=== PATIENT | female | born 1980 | race Caucasian/White ===

== ENCOUNTER 2020-05-29 19:19 | Inpatient (IN) ==
[2020-05-29] MEDS ORDERED: LORazepam 2 MG/4 ML VIAL IV STA (19:39)
[2020-05-29] MEDS ORDERED: MULTI-VITAMIN INFUSION 10 ML, THIAMINE HCL 100 MG, FOLIC ACID 1 MG in SODIUM CHLORIDE 0... IV ONE (19:40)
[2020-05-29] MEDS ORDERED: SODIUM CHLORIDE 0.9% 1000ML 1,000 ML IV SCH (19:45)
[2020-05-29 20:28] LABS: INR 1.1 (0.9-1.1); Prothrombin Time 10.9 Seconds (9.0-12.0)
[2020-05-29 20:40] LABS: Albumin Level 3.7 gm/dl (3.4-5.0); BUN Creatinine Ratio 13.9 (10-20); Calcium 8.7 mg/dl (8.5-10.1); Creatinine Clr Calc Pharmacy 86.1 ml/min; Est GFR (African American) 119.1; Est GFR (Non-African American) 102.8; Magnesium 1.4 mg/dl (1.8-2.4); Potassium 2.9 mmol/L (3.5-5.1)
[2020-05-29 20:45] LABS: Influenza A virus by PCR Negative (Neg); Influenza B virus by PCR Negative (Neg); RSV by PCR Negative (Neg); SARS CoV2 RNA(COVID-19) InHosp NEGATIVE (Negative)
[2020-05-29] MEDS ORDERED: POTASSIUM CHLORIDE / WTR 10 MEQ/100 ML PLCT IV SCH (20:45)
[2020-05-29] MEDS ORDERED: POTASSIUM CHLORIDE 10 MEQ TABCR PO STA (20:45)
[2020-05-29 20:51] LABS: Albumin Globulin Ratio 1.1 (0.9-2); Bilirubin,Total 0.7 mg/dl (0.2-1); Globulin 3.3 gm/dl (2.5-4.0); Thyroid Stimulating Hormone 2.42 uIu/ml (0.300-4.500)
[2020-05-29] MEDS: MAGNESIUM SULFATE / D5W 1 GM/100 ML BAG IV SCH ×2 (20:53→21:49)
[2020-05-29 20:56] LABS: Hematocrit (blood only) 28.7 % (37-47); Hemoglobin 9.8 g/dL (12.0-16.0); Mean Corpuscular Hemoglobin 29.6 pg (25-34); Mean Corpuscular Hgb Conc 34.1 g/dL (32-36); Mean Corpuscular Volume 86.7 fL (80-100); RDW Coefficient of Variation 21.7 % (11.5-14.5); RDW Standard Deviation 68.6 fL (36.4-46.3); Red Blood Count 3.31 M/uL (4.2-5.4); White Blood Count 3.91 K/uL (4.8-10.8)
[2020-05-29 21:03] LABS: Anisocytosis Present; Basophils # (auto) 0.01 K/uL (0-0.2); Basophils % (auto) 0.3 %; Eosinophils # (auto) 0.01 K/uL (0-0.5); Eosinophils % (auto) 0.3 %; Immature Granulocytes # (auto) 0.02 K/uL (0.00-0.02); Immature Granulocytes % (auto) 0.5 %; Lymphocytes # (auto) 0.64 K/uL (1.2-3.4); Lymphocytes % (auto) 16.4 %; Mean Platelet Volume 10.3 fL (7.4-10.4); Monocytes # (auto) 0.21 K/uL (0.11-0.59); Monocytes % (auto) 5.4 %; Neutrophils # (auto) 3.02 K/uL (1.4-6.5); Neutrophils % (auto) 77.1 %; Platelet Count 64 K/uL (130-400); Platelet Estimate Decreased (Normal)
[2020-05-29] MEDS ORDERED: ACETAMINOPHEN 1,000 MG/100 ML VIAL IV STA (21:21)
[2020-05-29 21:29] LABS: Phosphorus 1.4 mg/dl (2.5-4.9)
[2020-05-29] MEDS ORDERED: POTASSIUM PHOSPHATE 30 MMOL in SODIUM CHLORIDE 0.9% 500 ML IV ONE (22:00)
[2020-05-29] MEDS ORDERED: GABAPENTIN 600 MG TAB PO ONE (22:03)
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
[2020-05-29] MEDS ORDERED: ONDANSETRON INJ 2 MG/ML 2 ML VIAL IV PRN (23:42)
[2020-05-29] MEDS ORDERED: LORazepam 1 MG/2 ML VIAL IV PRN (23:42)
[2020-05-29] MEDS ORDERED: GABAPENTIN 1200MG ALCOHOL WITHDRAWAL LOAD PO STA (23:42)
[2020-05-29] MEDS ORDERED: LORazepam 3 MG/6 ML VIAL IV PRN (23:42)
[2020-05-29] MEDS ORDERED: ACETAMINOPHEN 325 MG TAB PO PRN (23:42)
[2020-05-29] MEDS ORDERED: ATIVAN IV ALCOHOL WITHDRAWL IV PRN (23:42)
[2020-05-29] MEDS ORDERED: LORazepam 2 MG/4 ML VIAL IV PRN (23:42)
[2020-05-29] MEDS ORDERED: POTASSIUM PHOS 3 MMOL/1 ML INFUSION IV ONE (23:42)
[2020-05-30] MEDS ORDERED: MELATONIN 3 MG TAB PO PRN (00:09)
[2020-05-30] MEDS: POTASSIUM CHLORIDE CRTAB 20 MEQ TABCR PO SCH ×3 (00:37→19:42)
[2020-05-30] MEDS: busPIRone 7.5 MG TAB PO SCH ×4 (00:37→19:42)
[2020-05-30] MEDS: FOLIC ACID 1 MG TAB PO SCH ×2 (00:37→08:34)
[2020-05-30] MEDS: NSS + 20MEQ KCL 20 MEQ/1,000 ML BAG IV SCH ×4 (00:37→19:41)
[2020-05-30] MEDS: NEPHROCAPS PO SCH ×3 (00:38→19:42)
[2020-05-30] MEDS: THIAMINE HCL 100 MG TAB PO SCH ×2 (00:38→08:34)
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
[2020-05-30] MEDS: GABAPENTIN 600 MG TAB PO SCH ×3 (03:48→19:42)
[2020-05-30 05:30] LABS: Appearance Urine Clear (Clear); Bacteria Urine Automated Negative (Negative); Bilirubin Urine Negative (Negative); Blood Urine 3+ (Negative); Color Urine Yellow; Epithelial Cell Urine Auto >30 /lpf (0-5); Glucose Urine UA Negative (Negative); Ketones Urine Negative (Negative); Leukocyte Esterase Urine Negative (Negative); Nitrite Urine Negative (Negative); Protein Urine Trace (Negative); Specific Gravity Urine 1.016 (1.000-1.030); Urobilinogen Urine Negative (Negative); pH Urine 5.5 (4.5-7.5)
[2020-05-30 05:49] LABS: Amphetamines+Metham, Urine Neg (Neg); Barbiturates, Urine Neg (Neg); Benzodiazepine, Urine Neg (Neg); Cocaine, Urine Neg (Neg); MDMA (Ecstacy), Urine Neg (Neg); Methadone, Urine Neg (Neg); Opiate, Urine Neg (Neg); Phencyclidine, Urine Neg (Neg)
[2020-05-30 05:50] LABS: Hematocrit (blood only) 24.8 % (37-47); Hemoglobin 8.2 g/dL (12.0-16.0); Mean Corpuscular Hemoglobin 29.4 pg (25-34); Mean Corpuscular Hgb Conc 33.1 g/dL (32-36); Mean Corpuscular Volume 88.9 fL (80-100); RDW Standard Deviation 71.1 fL (36.4-46.3); Red Blood Count 2.79 M/uL (4.2-5.4); White Blood Count 3.27 K/uL (4.8-10.8)
[2020-05-30 05:52] LABS: Mucus Urine Present (None Prsent)
[2020-05-30 06:10] LABS: Albumin Level 2.7 gm/dl (3.4-5.0); BUN Creatinine Ratio 15.5 (10-20); Calcium 6.9 mg/dl (8.5-10.1); Creatinine Clr Calc Pharmacy 131.4 ml/min; Est GFR (African American) 146.3; Est GFR (Non-African American) 126.2
[2020-05-30 06:15] LABS: Albumin Globulin Ratio 0.9 (0.9-2); Bilirubin,Total 0.5 mg/dl (0.2-1); Globulin 2.9 gm/dl (2.5-4.0); Phosphorus 3.9 mg/dl (2.5-4.9); Total Protein 5.6 gm/dl (6.4-8.2)
[2020-05-30 06:31] LABS: Anisocytosis Present; Basophils # (auto) 0.01 K/uL (0-0.2); Basophils % (auto) 0.3 %; Eosinophils # (auto) 0.01 K/uL (0-0.5); Eosinophils % (auto) 0.3 %; Lymphocytes # (auto) 0.74 K/uL (1.2-3.4); Lymphocytes % (auto) 22.6 %; Mean Platelet Volume 10.5 fL (7.4-10.4); Monocytes # (auto) 0.21 K/uL (0.11-0.59); Monocytes % (auto) 6.4 %; Neutrophils % (auto) 70.4 %; Platelet Count 47 K/uL (130-400)
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
--- NOTE | 2020-05-30 08:27 | XRay Report ---
XR chest 1V portable CLINICAL HISTORY: Syncope COMPARISON STUDY: No previous studies for comparison. FINDINGS: The cardiac and mediastinal contours are normal. There is no evidence of focal pulmonary co nsolidation. There is no evidence of failure. No pleural effusions are visualized.[ IMPRESSION: No active disease in the chest. ACT 112: Negative or not required by law. Electronically signed by: Bradley Aranda M.D. 05/30/2020 8:26 AM
[2020-05-30] MEDS: ESCITALOPRAM OXALATE 10 MG TAB PO SCH (08:34)
--- NOTE | 2020-05-30 08:36 | XRay Report ---
XR pelvis 1-2V routine HISTORY: 39 years-old Female Fall, posterior pain acute pelvic pain status post fall COMPARISON: CT pelvis of same day TECHNIQUE: AP view of the pelvis FINDINGS: The bilateral femoral acetabular joints appear normal without acute fracture, dislocation or avascula r necrosis. Obscuring bowel gas limits evaluation of the mid sacrum. IMPRESSION: No acute fracture identified by conventional radiograph. Please refer to CT pelvis of for discussion of the acute S2 and S3 fractures. ACT 112: Negative or not required by law. The above report was generated using voice recognition software. It may contain grammatical, syntax o r spelling errors. Electronically signed by: Samm Darden M.D. 05/30/2020 8:35 AM
--- NOTE | 2020-05-30 10:20 | Cardiology Consultation ---
Date of Consultation May 30, 2020 Assessment & Plan (1) Syncope: She had a witnessed syncopal episode. While there was some shaking reported by her young son, this is common in episodes of syncope. Her episode was similar to 1 she experienced approximately 1 month ago in that there was no significant prodrome or sense of palpitation. She did not appear to have much confusion or disorientation after this particular episode. As noted previously, this would be concerning for an arrhythmic event. Our plan in the outpatient setting was for an echocardiogram and ambulatory monitoring. Neither of these has been accomplished. Will obtain an echocardiogram today. Continue telemetry while an inpatient and I will arrange for outpatient monitoring at the time of discharge. No arrhythmias on monitoring. Curiously, she did have some atrial ectopy at the time of her admission which is common with the electrolyte abnormalities documented. While I suppose any tachy or Luis arrhythmia could have produced her episode of syncope, my concern would be an episode of torsades. Was concern is based primarily on her electrolyte abnormalities and current use of an SSRI. She is on low-dose escitalopram which in theory should have a low risk for precipitating cardiac arrhythmia 6, but given her malnutrition and propensity towards electrolyte abnormalities, she may be at more risk than others for prolonged QT intervals and development of torsades. I think the risk of continuing the medication would be low provided she can maintain adequate nutrition, hydration and electrolyte supplementation. (2) Hypokalemia: She is supposed to be on potassium supplementation. Poor oral intake overall likely places her at continued risk for electrolyte abnormalities. He states that her appetite is better and she actually ate well yesterday. She attributes this to her new antidepressants and antianxiety medicine (3) Malnutrition: A history of heavy alcohol use as well as poor oral intake and resulted in significant weight loss and electrolyte abnormalities. She also has what appears to be an element of mild low suppression presumably from Bill nutrition as well. History of Present Illness Reason for Consultation: Syncope Requesting Physician: Candace Attending Physician: Mark Powell DO History of Present Illness The patient is a 31-year-old woman without a known history of cardiac disease who has now suffered 2 episodes of syncope. I originally saw the patient approximately 3 weeks ago after she had an episode of syncope at home. This episode was unwitnessed, but afterwards did involve a period of confusion. The episode itself is not evaluated immediately, and there did not appear to be any prodrome or other associated symptoms. Yesterday the patient suffered a witnessed syncopal episode while shopping. She does not recall any events leading up to her syncope. She did not report any prodrome such as palpitations or dizziness. Her young son who was present at the time stated that she perhaps hit her head in the process of falling and she was noted to have a sacral fracture when evaluation in our emergency room. Immediately after the event the patient stated that she regained consciousness and did not have much confusion. This was distinct from her prior episode which involved extended confusion. She stated that she was otherwise feeling well yesterday. She had been eating and drinking better recently. She attributes this to new medications. She generally does not have dizziness or lightheadedness. She did not report other symptoms such as dyspnea or chest pain. She has not had palpitations. Currently feeling well. This some discomfort in the sacral area. Allergies Allergy/AdvReac Type Severity Reaction Status Date / Time No Known Allergies Allergy Verified 05/29/20 21:03 Home Medications Medication Instructions Recorded Confirmed Type melatonin 5 mg capsule 5 mg PO DAILY PRN cap 05/11/20 05/29/20 History buspirone 7.5 - 15 mg PO DAILY 05/29/20 05/29/20 History escitalopram oxalate 10 mg PO QAM 05/29/20 05/29/20 History potassium chloride 20 meq PO QAM 05/29/20 05/29/20 History hydroxyzine HCl 10 mg PO UD #30 tab 05/31/20 Rx Patient History Medical History (Updated 06/01/20 @ 00:07 by Juan Mann) No significant past medical history Surgical History No significant past surgical history Social History Smoking Status: Never smoker Second Hand Exposure: No; Hx Alcohol Use: No (no alcohol use x 3-4 wks) Hx Substance Use: No Preferred Language: Qatari Beliefs That Will Affect Care: None marital status: Current Living Situation: Family Current Living Situation Comment: along with children current occupational status: employed Feels Safe at Home: Yes Assistive Devices: None Review of Systems Review of Systems: All systems reviewed & are unremarkable except as noted in HPI & below She did report some darker stools recently. No diarrhea. Sacral discomfort as mentioned above. Easy bruising seems to have resolved. Less anxiety and better appetite recently. Sleeping poorly in general. Physical Exam Physical Exam: She is alert and oriented x3. Mood affect appear normal. She answered all questions appropriately. HEENT: Sclerae are anicteric. Pupils are equal and reactive to light and accommodation. Extraocular movements were intact. Swollen left lower lip Neuro: Cranial nerves intact Neck: Examination of the submandibular region did not reveal any significant lymphadenopathy. Carotids are palpable bilaterally and free of bruits on auscultation. There was no evidence of jugular venous distention. The thyroid was not enlarged. Lungs: Lungs are clear to auscultation bilaterally. There are no rales wheezes or rhonchi. She has normal respiratory effort without use of accessory muscles. There is normal pulmonary excursion. Cardiac: The rhythm was regular. S1 and S2 were normal. There are no murmurs on examination. The PMI was not markedly displaced on palpation. Abdomen: The abdomen was soft and nontender. Extremities: Patient has bilateral radial pulses that are equal in intensity. There is no evidence cyanosis or clubbing. There was no evidence of significant peripheral edema bilaterally. Skin: There are no rashes noted on examination today. Results & Data ([facility]) Vital Signs (Past 12 Hours) Vital Signs Temp Pulse Pulse Resp BP BP Pulse Ox 05/30/20 07:36 87 05/30/20 06:58 36.5 C 92 H 19 102/65 98 05/30/20 03:42 36.8 C 102 H 16 118/80 100 05/29/20 23:45 95 H 05/29/20 23:43 36.6 C 102 H 18 136/78 99 05/29/20 23:01 86 16 05/29/20 23:00 85 16 102/63 05/29/20 22:31 95 H 18 05/29/20 22:30 85 16 114/69 Laboratory Results Abnormal Lab Results 05/29/20 05/29/20 05/29/20 19:50 19:50 20:00 WBC 3.91 L RBC 3.31 L Hgb 9.8 L Hct 28.7 L MCV 86.7 MCH 29.6 MCHC 34.1 RDW Std Deviation 68.6 H RDW Coeff of Cliff 21.7 H Plt Count 64 L MPV 10.3 Immature Gran % (Auto) 0.5 Neut % (Auto) 77.1 Lymph % (Auto) 16.4 Citrus % (Auto) 5.4 Eos % (Auto) 0.3 Baso % (Auto) 0.3 Neut # (Auto) 3.02 Lymph # (Auto) 0.64 L [place] # (Auto) 0.21 Eos # (Auto) 0.01 Baso # (Auto) 0.01 Immature Gran # (Auto) 0.02 Platelet Estimate Decreased L Anisocytosis Present PT INR Sodium Potassium Chloride Carbon Dioxide Anion Gap BUN Creatinine Est Cr Clr Drug Dosing Est GFR ( Amer) Est GFR (Non-Af Amer) BUN/Creatinine Ratio Glucose Calcium Phosphorus Magnesium Total Bilirubin AST ALT Alkaline Phosphatase Total Protein Albumin Globulin Albumin/Globulin Ratio TSH Urine Color Urine Appearance Urine pH Ur Specific [place] Urine Protein Urine Glucose (UA) Urine Ketones Urine Blood Urine Nitrite Urine Bilirubin Urine Urobilinogen Ur Leukocyte Esterase Urine WBC (Auto) Urine RBC (Auto) U Hyaline Cast (Auto) U Epithel Cells (Auto) Urine Bacteria (Auto) Urine Mucus Urine Opiates Screen Ur Methadone, Qual Urine Barbiturates Ur Phencyclidine (PCP) U Amphetamin/Meth Scrn MDMA (Ecstasy) Screen U Benzodiazepines Scrn Ur Cocaine Metabolite U Marijuana (THC) Screen Ethyl Alcohol mg/dL COVID-19 Eval Order CovFluRsv at [facility] SARS-CoV-2 (PCR) NEGATIVE Influenza Type A (PCR) Negative Influenza Type B (PCR) Negative RSV (RT-PCR) Negative 05/29/20 05/29/20 05/29/20 20:00 20:00 20:00 WBC RBC Hgb Hct MCV MCH MCHC RDW Std Deviation RDW Coeff of Cliff Plt Count MPV Immature Gran % (Auto) Neut % (Auto) Lymph % (Auto) [place] % (Auto) Eos % (Auto) Baso % (Auto) Neut # (Auto) Lymph # (Auto) [place] # (Auto) Eos # (Auto) Baso # (Auto) Immature Gran # (Auto) Platelet Estimate Anisocytosis PT 10.9 INR 1.1 Sodium 135 L Potassium 2.9 L Chloride 101 Carbon Dioxide 27 Anion Gap 7.0 BUN 10 Creatinine 0.74 Est Cr Clr Drug Dosing 86.1 Est GFR ( Amer) 119.1 Est GFR (Non-Af Amer) 102.8 BUN/Creatinine Ratio 13.9 Glucose 112 H Calcium 8.7 Phosphorus 1.4 L* Magnesium 1.4 L Total Bilirubin 0.7 AST 42 H ALT 21 Alkaline Phosphatase 56 Total Protein 7.0 Albumin 3.7 Globulin 3.3 Albumin/Globulin Ratio 1.1 TSH 2.420 Urine Color Urine Appearance Urine pH Ur Specific [place] Urine Protein Urine Glucose (UA) Urine Ketones Urine Blood Urine Nitrite Urine Bilirubin Urine Urobilinogen Ur Leukocyte Esterase Urine WBC (Auto) Urine RBC (Auto) U Hyaline Cast (Auto) U Epithel Cells (Auto) Urine Bacteria (Auto) Urine Mucus Urine Opiates Screen Ur Methadone, Qual Urine Barbiturates Ur Phencyclidine (PCP) U Amphetamin/Meth Scrn MDMA (Ecstasy) Screen U Benzodiazepines Scrn Ur Cocaine Metabolite U Marijuana (THC) Screen Ethyl Alcohol mg/dL < 3.0 COVID-19 Eval Order SARS-CoV-2 (PCR) Influenza Type A (PCR) Influenza Type B (PCR) RSV (RT-PCR) 05/30/20 05/30/20 05/30/20 04:00 04:00 05:38 WBC 3.27 L RBC 2.79 L Hgb 8.2 L Hct 24.8 L MCV 88.9 MCH 29.4 MCHC 33.1 RDW Std Deviation 71.1 H RDW Coeff of Cliff 22.0 H Plt Count 47 L MPV 10.5 H Immature Gran % (Auto) 0.0 Neut % (Auto) 70.4 Lymph % (Auto) 22.6 Citrus % (Auto) 6.4 Eos % (Auto) 0.3 Baso % (Auto) 0.3 Neut # (Auto) 2.30 Lymph # (Auto) 0.74 L [place] # (Auto) 0.21 Eos # (Auto) 0.01 Baso # (Auto) 0.01 Immature Gran # (Auto) 0.00 Platelet Estimate Anisocytosis Present PT INR Sodium Potassium Chloride Carbon Dioxide Anion Gap BUN Creatinine Est Cr Clr Drug Dosing Est GFR ( Amer) Est GFR (Non-Af Amer) BUN/Creatinine Ratio Glucose Calcium Phosphorus Magnesium Total Bilirubin AST ALT Alkaline Phosphatase Total Protein Albumin Globulin Albumin/Globulin Ratio TSH Urine Color Yellow Urine Appearance Clear Urine pH 5.5 Ur Specific [place] 1.016 Urine Protein Trace H Urine Glucose (UA) Negative Urine Ketones Negative Urine Blood 3+ H Urine Nitrite Negative Urine Bilirubin Negative Urine Urobilinogen Negative Ur Leukocyte Esterase Negative Urine WBC (Auto) 5-10 H Urine RBC (Auto) 10-30 H U Hyaline Cast (Auto) 1-5 U Epithel Cells (Auto) >30 H Urine Bacteria (Auto) Negative Urine Mucus Present A Urine Opiates Screen Neg Ur Methadone, Qual Neg Urine Barbiturates Neg Ur Phencyclidine (PCP) Neg U Amphetamin/Meth Scrn Neg MDMA (Ecstasy) Screen Neg U Benzodiazepines Scrn Neg Ur Cocaine Metabolite Neg U Marijuana (THC) Screen Neg Ethyl Alcohol mg/dL COVID-19 Eval Order SARS-CoV-2 (PCR) Influenza Type A (PCR) Influenza Type B (PCR) RSV (RT-PCR) 05/30/20 05:38 WBC RBC Hgb Hct MCV MCH MCHC RDW Std Deviation RDW Coeff of Cliff Plt Count MPV Immature Gran % (Auto) Neut % (Auto) Lymph % (Auto) [place] % (Auto) Eos % (Auto) Baso % (Auto) Neut # (Auto) Lymph # (Auto) [place] # (Auto) Eos # (Auto) Baso # (Auto) Immature Gran # (Auto) Platelet Estimate Anisocytosis PT INR Sodium 142 D Potassium 4.0 D Chloride 114 H Carbon Dioxide 23 Anion Gap 5.0 BUN 7 Creatinine 0.46 L Est Cr Clr Drug Dosing 131.4 Est GFR ( Amer) 146.3 Est GFR (Non-Af Amer) 126.2 BUN/Creatinine Ratio 15.5 Glucose 89 Calcium 6.9 L D Phosphorus 3.9 D Magnesium Total Bilirubin 0.5 AST 57 H ALT 23 Alkaline Phosphatase 43 L Total Protein 5.6 L Albumin 2.7 L Globulin 2.9 Albumin/Globulin Ratio 0.9 TSH Urine Color Urine Appearance Urine pH Ur Specific [place] Urine Protein Urine Glucose (UA) Urine Ketones Urine Blood Urine Nitrite Urine Bilirubin Urine Urobilinogen Ur Leukocyte Esterase Urine WBC (Auto) Urine RBC (Auto) U Hyaline Cast (Auto) U Epithel Cells (Auto) Urine Bacteria (Auto) Urine Mucus Urine Opiates Screen Ur Methadone, Qual Urine Barbiturates Ur Phencyclidine (PCP) U Amphetamin/Meth Scrn MDMA (Ecstasy) Screen U Benzodiazepines Scrn Ur Cocaine Metabolite U Marijuana (THC) Screen Ethyl Alcohol mg/dL COVID-19 Eval Order SARS-CoV-2 (PCR) Influenza Type A (PCR) Influenza Type B (PCR) RSV (RT-PCR) PG Care Time/CCT Total # of Minutes Spent Total Time Spent with Patient: Total time spent is greater than 50% in coordination of care (as documented) at patient's floor/unit and/or counseling patient: Coding Level of Care Code 83019 Office/OBS Consult Lvl 4 Diagnoses Syncope R55 Hypokalemia E87.6 Malnutrition E46
--- NOTE | 2020-05-30 11:16 | Hospitalist Progress Note ---
Date of Service May 30, 2020 Assessment & Plan (1) Syncope: Most likely secondary to arrhythmia Patient will be kept on telemetry overnight tonight. If no identifiable arrhythmias, patient will be discharged and set up for event monitor as an outpatient This is a recurrent issue of syncope with no prodrome and no other significant cause Neurology consulted and doubt seizure activity Consider torsades secondary to recent start of SSRI Cardiology consulted and will follow outpatient for complete work-up Continue on telemetry overnight Ambulate in hallways with monitor intact (2) Seizure: Most likely not a seizure. Neurology consulted. Appreciate their input Suspect that this was sequela of syncope Continue on seizure precautions while inpatient on telemetry Outpatient monitoring with cardiology (3) Electrolyte imbalance: Most likely secondary to poor nutritional intake due to ethanol abuse Last drink 2 weeks ago Since starting Escitalopram, patient states that her appetite is returned Patient ate all of breakfast and all of lunch today Follow serial labs Encourage adequate fluid intake (4) Sacral fracture, closed: Secondary to fall Pain management as needed (5) Alcohol dependence: Patient states her last drink was 2 weeks ago States that now that she is on SSRI she does not have a need to drink for coping mechanism Discussed and agreed upon complete ethanol abstinence Continue folic acid and thiamine as well as multivitamin Outpatient management (6) Malnutrition: Discussed patient with dietitian They will see her and educate on proper caloric and protein intake Continue with full diet while inpatient (7) PTSD (post-traumatic stress disorder): Recently started on escitalopram Continue buspirone Outpatient management (8) DVT prophylaxis: No chemical prophylaxis secondary to syncope and fall Ambulate in halls as tolerated Admission and Anticipated Discharge Date Admission Date: May 29, 2020 Subjective Attending: Dr. Powell 39-year-old female with recurrent episode of syncope. Also positive for ethanol consumption with last drink 2 weeks ago. Patient states that she is feeling better today. No headache, lightheadedness, blurred vision, diplopia. No residual symptoms from yesterday syncope. Denies tobacco abuse. Question of seizure-like activity at the time of syncope as an outpatient. Patient denies history of seizures. Most likely arrhythmia as this is a recurrent event with no prodrome. Patient recently started on Escitalopram. Question torsades. No arrhythmias on telemetry at this point. Patient denies any other acute complaints. Review of Systems Review of Systems: All systems reviewed & are unremarkable except as noted in Subjective Physical Exam Physical Exam: GENERAL : No acute distress EYES: No icterus, gaze conjugate NOSE: No evidence of epistaxis MOUTH: No lesions or candidiasis NECK: Supple LUNGS: CTA B/L, no wheezes, rales or rhonchi HEART: Regular, rate controlled ABDOMEN: Soft, NT, ND, BS Present EXTREMITIES: No LE edema, pedal pulses intact NEURO: A&OX3 Results & Data Results & Data ([facility]) Vital Signs (Past 12 Hours) Vital Signs Temp Pulse Pulse Resp BP Pulse Ox 05/30/20 07:36 87 05/30/20 06:58 36.5 C 92 H 19 102/65 98 05/30/20 03:42 36.8 C 102 H 16 118/80 100 05/29/20 23:45 95 H 05/29/20 23:43 36.6 C 102 H 18 136/78 99 Laboratory Results 05/30/20 05:38 05/30/20 05:38 Diagnostic Findings Echocardiogram 05/30/2020 Interpretation summary: Left ventricular systolic function was normal Grade 1 diastolic dysfunction, (abnormal relaxation pattern). No significant valvular heart disease PG Care Time/CCT Total # of Minutes Spent Total Time Spent with Patient: Total time spent is greater than 50% in coordination of care (as documented) at patient's floor/unit and/or counseling patient: Coding Level of Care Code 00758 Subseq Hosp Care Lvl 2 History Expanded Problem Focused Diagnoses Syncope R55 Seizure R56.9 Electrolyte imbalance E87.8 Sacral fracture, closed S32.10XA Alcohol dependence F10.239 Complication of substance-induced condition: with unspecified complication Substance use status: in withdrawal Malnutrition E46 PTSD (post-traumatic stress disorder) F43.10 DVT prophylaxis Z29.9 (1) Alcohol dependence Complication of substance-induced condition: with unspecified complication Substance use status: in withdrawal Qualified Code(s): F10.239 - Alcohol dependence with withdrawal, unspecified
--- NOTE | 2020-05-30 11:19 | XCELERA ---
[id number]
--- NOTE | 2020-05-30 13:03 | Electrocardiogram Report ---
Test Reason : Blood Pressure : / mmHG Vent. Rate : 101 BPM Atrial Rate : 100 BPM P-R Int : 000 ms QRS Dur : 074 ms QT Int : 368 ms P-R-T Axes : 000 079 019 degrees QTc Int : 477 ms Sinus rhythm with PACs and aberrancy Abnormal ECG When compared with ECG of 28-JUN-1999 19:48, Non-specific change in ST segment in Inferior leads ST now depressed in Anterior leads Nonspecific T wave abnormality no longer evident in Lateral leads Confirmed by Huey Cavazos ([id number]) on 05/30/2020 1:02:57 PM Referred By: REFERRED SELF Confirmed By:Blake Cavazos
--- NOTE | 2020-05-30 19:52 | Electrocardiogram Report ---
Test Reason : Blood Pressure : / mmHG Vent. Rate : 101 BPM Atrial Rate : 101 BPM P-R Int : 114 ms QRS Dur : 076 ms QT Int : 326 ms P-R-T Axes : 065 060 020 degrees QTc Int : 422 ms Sinus tachycardia Poor R wave progression, consider anterior [place] vs. lead placement vs. LVH Nonspecific ST abnormality Abnormal ECG When compared with ECG of 29-MAY-2020 19:26, Previous ECG has undetermined rhythm, needs review Nonspecific T wave abnormality now evident in Anterior leads QT has shortened Confirmed by Huey Cavazos ([id number]) on 05/30/2020 7:52:13 PM Referred By: REFERRED SELF Confirmed By:Blake Cavazos
[2020-05-31] MEDS: NSS + 20MEQ KCL 20 MEQ/1,000 ML BAG IV SCH ×2 (02:27→08:37)
[2020-05-31] MEDS: GABAPENTIN 600 MG TAB PO SCH ×2 (03:51→12:34)
[2020-05-31 05:47] LABS: Hematocrit (blood only) 24.4 % (37-47); Hemoglobin 8.2 g/dL (12.0-16.0); Mean Corpuscular Hemoglobin 29.9 pg (25-34); Mean Corpuscular Hgb Conc 33.6 g/dL (32-36); Mean Corpuscular Volume 89.1 fL (80-100); RDW Coefficient of Variation 21.9 % (11.5-14.5); RDW Standard Deviation 70.6 fL (36.4-46.3); Red Blood Count 2.74 M/uL (4.2-5.4); White Blood Count 2.96 K/uL (4.8-10.8)
[2020-05-31 06:11] LABS: Mean Platelet Volume 10.3 fL (7.4-10.4); Platelet Count 46 K/uL (130-400)
[2020-05-31 06:12] LABS: Anisocytosis Present; Basophils # (auto) 0.01 K/uL (0-0.2); Basophils % (auto) 0.3 %; Eosinophils # (auto) 0.04 K/uL (0-0.5); Eosinophils % (auto) 1.4 %; Giant Platelets 1+; Immature Granulocytes # (auto) 0.01 K/uL (0.00-0.02); Immature Granulocytes % (auto) 0.3 %; Lymphocytes # (auto) 1.07 K/uL (1.2-3.4); Lymphocytes % (auto) 36.1 %; Monocytes # (auto) 0.31 K/uL (0.11-0.59); Monocytes % (auto) 10.5 %; Neutrophils # (auto) 1.52 K/uL (1.4-6.5); Neutrophils % (auto) 51.4 %; Platelet Estimate Decreased (Normal)
[2020-05-31 06:28] LABS: Alanine Aminotransferase 20 U/L (12-78); Albumin Globulin Ratio 0.9 (0.9-2); Albumin Level 2.7 gm/dl (3.4-5.0); Alkaline Phosphatase 40 U/L (45-117); Aspartate Aminotransferase 32 U/L (15-37); BUN Creatinine Ratio 10.5 (10-20); Bilirubin,Total 0.3 mg/dl (0.2-1); Blood Urea Nitrogen 4 mg/dl (7-18); Calcium 7.6 mg/dl (8.5-10.1); Carbon Dioxide 26 mmol/L (21-32); Chloride 110 mmol/L (98-107); Creatinine Clr Calc Pharmacy 146.8 ml/min; Est GFR (African American) > 150.0; Globulin 3.1 gm/dl (2.5-4.0); Glucose 89 mg/dl (70-99); Phosphorus 3.5 mg/dl (2.5-4.9); Potassium 4.8 mmol/L (3.5-5.1); Sodium 139 mmol/L (136-145); Total Protein 5.8 gm/dl (6.4-8.2)
[2020-05-31] MEDS: NEPHROCAPS PO SCH (08:37)
[2020-05-31] MEDS: busPIRone 7.5 MG TAB PO SCH (08:37)
[2020-05-31] MEDS: FOLIC ACID 1 MG TAB PO SCH (08:37)
[2020-05-31] MEDS: ESCITALOPRAM OXALATE 10 MG TAB PO SCH (08:37)
[2020-05-31] MEDS: POTASSIUM CHLORIDE CRTAB 20 MEQ TABCR PO SCH (08:37)
[2020-05-31] MEDS: THIAMINE HCL 100 MG TAB PO SCH (08:37)
--- NOTE | 2020-05-31 09:52 | Neurology Progress Note ---
Date of Service May 31, 2020 Assessment & Plan (1) Syncope: I agree with Dr. Boswell's assessment of probable convulsive syncope. Follow-up with results of EEG to be completed today. Agree with recommendation for 30-day mobile cardiac outpatient telemetry. Medical team to manage alcohol dependency and anorexia. No further immediate neurological recommendations. If additional outpatient neurological assessments are required, patient may follow-up with Dr. Boswell in neurology clinic. Admission and Anticipated Discharge Date Admission Date: May 29, 2020 Subjective Follow-up for seizure-like episode The patient is a 39-year-old female who presented with a seizure-like episode that occurred while shopping at [employer] with her son yesterday. She is amnestic for the episode but does report having a few other similar spells in the past including a possible seizure at age 4. Past medical history notable for anorexia and alcohol dependency. She was seen in neurological consultation yesterday by Dr. Boswell who suspects convulsive syncope. Patient has an unremarkable brain MRI. EEG pending. Patient has been seen by cardiology as well with a suspected diagnosis of syncope. An echocardiogram was unremarkable. The patient denies any specific neurological symptoms at this time. Review of Systems Constitutional: no fever Eyes: no blind spots Neurologic: no gait abnormality, no localized weakness, no loss of sensation, no tremor(s) and no headache(s) Results & Data ([facility]) Vital Signs (Past 12 Hours) Vital Signs Temp Pulse Pulse Resp BP Pulse Ox 05/31/20 07:16 36.8 C 68 19 164/99 H 98 05/31/20 03:00 37.2 C 87 18 144/95 H 100 05/30/20 23:35 90 05/30/20 22:39 37.0 C 101 H 20 132/88 99 Laboratory Results WBC 2.96, hemoglobin 8.2, hematocrit 24.4, platelet count 46, sodium 139, potassium 4.8, BUN 4, creatinine 0.42, glucose 89, AST 32, ALT 20, albumin 2.7, UDS negative, ethyl alcohol less than 3.[address] of the head completed May 29, 2020 - for hemorrhage or acute process. MRI of the brain completed May 27, 2020 - for acute process. 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 Exam (Neuro) Constitutional: + thin; no acute distress Neurologic: Oriented to:: Person, Place and Time Memory: Short Term Intact and Remote Intact Attention: Span Intact and Concentration Intact Speech Fluency: negative Dysarthria Speech Aphasia: negative Aphasia Fund of Knowledge: Current Events, Past History and Vocabulary Cranial Nerves: Normal II, III, IV, , V, VII, VIII, IX, X, XI and XII Motor Strength: Normal Lower Extremities and Normal Upper Extremities Muscle Bulk/Involuntary Movements: No Involuntary Movements Coordination: Normal Coding Level of Care Code 53040 Subseq Hosp Care Lvl 2 Diagnoses Syncope R55
--- NOTE | 2020-05-31 10:14 | Hospitalist Progress Note ---
Date of Service May 31, 2020 Assessment & Plan (1) Syncope: Syncope/loss of consciousness- Seizure versus general weakness versus arrhythmia versus alcohol withdrawal versus other. Dr Boswell with Neurology feels this is most consistent with convulsive syncope, pending EEG Consult her freight claim investigator Dr. Cavazos, who had begun a work-up in the outpatient setting, in patient Echo is normal with exception of mild Diastolic dysfunction, per note Dr Cavazos will arrange for an outpt event monitor Patient did have an MRI of the brain 2 days previously, which was negative. CT of head negative for acute event on admission (2) Loss of consciousness for less than 30 minutes: See above (3) Sacral fracture, closed: CT of pelvis reveals a comminuted fracture involving the S3 and S4 segments of the sacrum and extending to the posterior elements at these levels. There is mild degenerative disease of bilateral SI joints. (4) Alcohol dependence: Placed on AWSS protocol with gabapentin orally and lorazepam as needed IV Unclear if alcohol use has played a part immediately today in this episode, but likely is significantly contributing to malnutrition, which may be indirectly involved as a cause Received a banana bag in the ED. NSS + KCl 20 mEq at 150 mils per hour Thiamine 100 mg p.o. every morning Folic acid 1 mg p.o. every morning Nephrocaps 1 p.o. twice daily (5) Malnutrition: Malnutrition/abnormal weight loss/anorexia/hypophosphatemia/hypomagnesemia/hypokalemia- Multifactorial: PTSD, alcohol dependence (6) Hypokalemia: See above (7) Hypomagnesemia: See above (8) Hypophosphatemia: See above (9) Anorexia: See above (10) Weight loss, abnormal: See above (11) PTSD (post-traumatic stress disorder): Continue buspirone, reportedly is on 7.5-15 mg p.o. daily, will place on 7.5 mg p.o. twice daily Continue Escitalopram 10 mg p.o. every morning Admission and Anticipated Discharge Date Admission Date: May 29, 2020 Results & Data Results & Data ([facility]) Vital Signs (Past 12 Hours) Vital Signs Temp Pulse Pulse Resp BP Pulse Ox 05/31/20 07:16 98.2 F 68 19 164/99 H 98 05/31/20 03:00 99.0 F 87 18 144/95 H 100 05/30/20 23:35 90 05/30/20 22:39 98.6 F 101 H 20 132/88 99 PG Care Time/CCT Total # of Minutes Spent Total Time Spent with Patient: Total time spent is greater than 50% in coordination of care (as documented) at patient's floor/unit and/or counseling patient: Coding Diagnoses Syncope R55 Loss of consciousness for less than 30 minutes Sacral fracture, closed S32.10XA Alcohol dependence F10.239 Complication of substance-induced condition: with unspecified complication Substance use status: in withdrawal Malnutrition E46 Hypokalemia E87.6 Hypomagnesemia E83.42 Hypophosphatemia E83.39 Anorexia R63.0 Weight loss, abnormal R63.4 PTSD (post-traumatic stress disorder) F43.10 (1) Alcohol dependence Complication of substance-induced condition: with unspecified complication Substance use status: in withdrawal Qualified Code(s): F10.239 - Alcohol dependence with withdrawal, unspecified
--- NOTE | 2020-05-31 11:30 | Electroencephalogram ---
EEG Procedure Note Date of Service May 31, 2020 Start / End Times Start Time: 10:13 AM End Time: 10:33 AM Referring Physician Nic Maria History Seizure-like episode Home Medication List Medication Instructions Recorded Confirmed Type melatonin 5 mg capsule 5 mg PO DAILY PRN cap 05/11/20 05/29/20 History buspirone 7.5 - 15 mg PO DAILY 05/29/20 05/29/20 History escitalopram oxalate 10 mg PO QAM 05/29/20 05/29/20 History hydroxyzine HCl 10 - 30 mg PO DAILY 05/29/20 05/29/20 History potassium chloride 20 meq PO QAM 05/29/20 05/29/20 History Inpatient Medication List Acetaminophen (Acetaminophen 325 Mg Tab) 650 mg PO Q4H PRN PRN Reason: Pain or Fever Stop: 06/28/20 23:41 Last Admin: 05/30/20 04:05 Dose: 650 mg Documented by: [id number] Buspirone HCl (Buspirone 7.5 Mg Tab) 7.5 mg PO BID [facility] Stop: 06/28/20 23:41 Last Admin: 05/31/20 08:37 Dose: 7.5 mg Documented by: [id number] Admin: 05/30/20 19:42 Dose: 7.5 mg Documented by: [id number] Admin: 05/30/20 08:39 Dose: Not Given Documented by: [id number] Admin: 05/30/20 00:37 Dose: 7.5 mg Documented by: [id number] Escitalopram Oxalate (Escitalopram Oxalate 10 Mg Tab) 10 mg PO QAM [facility] Stop: 06/29/20 08:59 Last Admin: 05/31/20 08:37 Dose: 10 mg Documented by: [id number] Admin: 05/30/20 08:34 Dose: 10 mg Documented by: [id number] Folic Acid (Folic Acid 1 Mg Tab) 1 mg PO QAM [facility] Stop: 06/28/20 23:41 Last Admin: 05/31/20 08:37 Dose: 1 mg Documented by: [id number] Admin: 05/30/20 08:34 Dose: 1 mg Documented by: [id number] Admin: 05/30/20 00:37 Dose: 1 mg Documented by: [id number] Gabapentin (Gabapentin 600 Mg Tab) 600 mg PO Q8H [facility] Stop: 05/31/20 12:01 Last Admin: 05/31/20 03:51 Dose: 600 mg Documented by: [id number] Admin: 05/30/20 19:42 Dose: 600 mg Documented by: [id number] Potassium Chloride/Sodium Chloride (Normal Saline W/20 Meq Kcl) 20 meq in 1,000 mls @ 150 mls/hr IV .Q6H40M [facility] Stop: 06/28/20 23:41 Last Admin: 05/31/20 08:37 Dose: 150 mls/hr Documented by: [id number] Infusion: 05/31/20 08:37 Dose: 150 mls/hr Documented by: [id number] Admin: 05/31/20 02:27 Dose: 150 mls/hr Documented by: [id number] Infusion: 05/31/20 02:22 Dose: 150 mls/hr Documented by: [id number] Admin: 05/30/20 19:41 Dose: 150 mls/hr Documented by: [id number] Infusion: 05/30/20 19:40 Dose: 0 mls/hr Documented by: [id number] Admin: 05/30/20 12:56 Dose: 150 mls/hr Documented by: [id number] Infusion: 05/30/20 12:56 Dose: 150 mls/hr Documented by: [id number] Admin: 05/30/20 06:40 Dose: 150 mls/hr Documented by: [id number] Infusion: 05/30/20 06:40 Dose: 150 mls/hr Documented by: [id number] Admin: 05/30/20 00:37 Dose: 150 mls/hr Documented by: [id number] Potassium Chloride (Potassium Chloride Crtab 20 Meq Tabcr) 20 meq PO BID [facility] Stop: 06/28/20 23:41 Last Admin: 05/31/20 08:37 Dose: 20 meq Documented by: [id number] Admin: 05/30/20 19:42 Dose: 20 meq Documented by: [id number] Admin: 05/30/20 08:34 Dose: 20 meq Documented by: [id number] Admin: 05/30/20 00:37 Dose: 20 meq Documented by: [id number] Thiamine HCl (Thiamine Hcl 100 Mg Tab) 100 mg PO QAM [facility] Stop: 06/28/20 23:41 Last Admin: 05/31/20 08:37 Dose: 100 mg Documented by: [id number] Admin: 05/30/20 08:34 Dose: 100 mg Documented by: [id number] Admin: 05/30/20 00:38 Dose: 100 mg Documented by: [id number] Vitamin B Complex/Folic Acid (Nephrocaps) 1 cap PO BID [facility] Stop: 06/28/20 23:41 Last Admin: 05/31/20 08:37 Dose: 1 cap Documented by: [id number] Admin: 05/30/20 19:42 Dose: 1 cap Documented by: [id number] Admin: 05/30/20 08:34 Dose: 1 cap Documented by: [id number] Admin: 05/30/20 00:38 Dose: 1 cap Documented by: [id number] Discontinued Medications Gabapentin (Gabapentin 600 Mg Tab) 1,200 mg PO NOW ONE Stop: 05/29/20 22:04 Last Admin: 05/29/20 22:31 Dose: 1,200 mg Documented by: [id number] Gabapentin (Gabapentin 600 Mg Tab) 600 mg PO Q6H [facility] Stop: 05/30/20 10:01 Last Admin: 05/30/20 09:45 Dose: 600 mg Documented by: [id number] Admin: 05/30/20 03:48 Dose: 600 mg Documented by: [id number] Sodium Chloride (Nss 1000ml) 1,000 mls @ 999 mls/hr IV .Q1H1M [facility] Stop: 05/29/20 20:45 Last Infusion: 05/29/20 21:04 Dose: 0 mls/hr Documented by: [id number] Admin: 05/29/20 19:47 Dose: 999 mls/hr Documented by: [id number] Lorazepam (Ativan) 2 mg in 4 mls @ 4 mls/min IV NOW STA Stop: 05/29/20 19:40 Last Admin: 05/29/20 20:00 Dose: 4 mls/min Documented by: [id number] Multivitamins 10 ml/ Thiamine HCl 100 mg/ Folic Acid 1 mg/Sodium Chloride 1,011.2 mls @ 1,011.2 mls/hr IV .Q1H ONE Stop: 05/29/20 20:39 Last Infusion: 05/29/20 22:01 Dose: 0 mls/hr Documented by: [id number] Admin: 05/29/20 20:00 Dose: 1,011.2 mls/hr Documented by: [id number] Magnesium Sulfate/Dextrose (Magnesium Sulfate / D5w) 1 gm in 100 mls @ 200 mls/hr IV Q30M [facility] Stop: 05/29/20 21:46 Last Infusion: 05/29/20 23:21 Dose: 0 mls/hr Documented by: [id number] Admin: 05/29/20 21:49 Dose: 100 mls/hr Documented by: [id number] Infusion: 05/29/20 21:49 Dose: 0 mls/hr Documented by: [id number] Admin: 05/29/20 20:53 Dose: 200 mls/hr Documented by: [id number] Acetaminophen (Ofirmev) 1,000 mg in 100 mls @ 400 mls/hr IV NOW STA Stop: 05/29/20 21:35 Last Infusion: 05/29/20 22:02 Dose: 0 mls/hr Documented by: [id number] Admin: 05/29/20 21:52 Dose: 400 mls/hr Documented by: [id number] Potassium Phosphate 30 mmol/ (Sodium Chloride) 510 mls @ 88 mls/hr IV ONE ONE Stop: 05/30/20 03:47 Last Infusion: 05/30/20 04:08 Dose: 0 mls/hr Documented by: [id number] Admin: 05/29/20 22:31 Dose: 88 mls/hr Documented by: [id number] Potassium Chloride (Potassium Chloride 10 Meq Tabcr) 40 meq PO NOW STA Stop: 05/29/20 20:46 Last Admin: 05/29/20 20:51 Dose: 40 meq Documented by: [id number] Description This is a 21 electrode EEG with a single channel dedicated to limited EKG. The electrodes were placed in accordance with the International 10-20 system. There is a posterior dominant rhythm of 10 Hz which is symmetrically distributed and attenuates with eye opening. There is a normal anterior to posterior organization. Photic stimulation is unremarkable. Hyperventilation was not performed. There is a symmetric frontal beta rhythm. There is intermittent IV and movement artifact. There is admixed generalized theta slowing. There are no epileptiform abnormalities. Interpretation Normal-appearing awake/drowsy EEG. A normal EEG does not completely exclude a diagnosis of epilepsy. Further clinical correlation may be needed. [facility] EEG Procedure Codes Indication for Procedure (1) Seizure: (2) Syncope: Neurology Neurology: 81214 EEG include record awake & drowsy
--- NOTE | 2020-05-31 16:04 | Cardiology Progress Note ---
Date of Service May 31, 2020 Assessment & Plan (1) Syncope: Still unknown etiology. Very possibly arrhythmic in nature. No arrhythmias on her telemetry overnight. We will arrange for an outpatient monitor. (2) Hypokalemia: Resolved. She will continue her supplementation and hopefully with better nutrition we can avoid additional electrolyte abnormalities. (3) Malnutrition: He seems to be eating better. Admission and Anticipated Discharge Date Admission Date: May 29, 2020 Subjective Patient claims to be feeling better today. She is ambulatory around her room. She did not report any additional episodes of dizziness or lightheadedness. She has a good appetite and was eating well today. Review of Systems Review of Systems: Per HPI Physical Exam Physical Exam: She is alert and oriented x3. Mood affect appear normal. She answered all questions appropriately. HEENT: Sclerae are anicteric. Pupils are equal and reactive to light and accommodation. Extraocular movements were intact. Swollen left lower lip Neuro: Cranial nerves intact Extremities: Patient has bilateral radial pulses that are equal in intensity. There is no evidence cyanosis or clubbing. There was no evidence of significant peripheral edema bilaterally. Skin: There are no rashes noted on examination today. Results & Data ([facility]) Vital Signs (Past 12 Hours) Vital Signs Temp Pulse Pulse Resp BP Pulse Ox 05/31/20 13:54 36.9 C 96 H 19 158/88 H 98 05/31/20 11:46 36.9 C 96 H 19 158/88 H 98 05/31/20 08:20 80 05/31/20 07:16 36.8 C 68 19 164/99 H 98 Laboratory Results Abnormal Lab Results 05/31/20 05/31/20 05/31/20 05:34 05:34 07:55 WBC 2.96 L RBC 2.74 L Hgb 8.2 L Hct 24.4 L MCV 89.1 MCH 29.9 MCHC 33.6 RDW Std Deviation 70.6 H RDW Coeff of Cliff 21.9 H Plt Count 46 L MPV 10.3 Immature Gran % (Auto) 0.3 Neut % (Auto) 51.4 Lymph % (Auto) 36.1 [place] % (Auto) 10.5 Eos % (Auto) 1.4 Baso % (Auto) 0.3 Neut # (Auto) 1.52 Lymph # (Auto) 1.07 L [place] # (Auto) 0.31 Eos # (Auto) 0.04 Baso # (Auto) 0.01 Immature Gran # (Auto) 0.01 Platelet Estimate Decreased L Giant Platelets 1+ Anisocytosis Present Sodium 139 Potassium 4.8 D Chloride 110 H Carbon Dioxide 26 Anion Gap 3.0 BUN 4 L Creatinine 0.42 L Est Cr Clr Drug Dosing 146.8 Est GFR ( Amer) > 150.0 Est GFR (Non-Af Amer) 130.0 BUN/Creatinine Ratio 10.5 Glucose 89 Calcium 7.6 L Phosphorus 3.5 Total Bilirubin 0.3 AST 32 ALT 20 Alkaline Phosphatase 40 L Total Protein 5.8 L Albumin 2.7 L Globulin 3.1 Albumin/Globulin Ratio 0.9 Stl C. diff Tox B Gene Negative Cdiff Gene PG Care Time/CCT Total # of Minutes Spent Total Time Spent with Patient: Total time spent is greater than 50% in coordination of care (as documented) at patient's floor/unit and/or counseling patient: Coding Level of Care Code 93805 Subseq Hosp Care Lvl 2 Diagnoses Syncope R55 Hypokalemia E87.6 Malnutrition E46
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
[2020-05-31] MEDS ORDERED: GABAPENTIN 600 MG TAB PO SCH (22:00)
[2020-06-02] MEDS ORDERED: GABAPENTIN 600 MG TAB PO SCH (10:00)
== END 2020-05-31 14:30 | disposition home or self-care (01) | DRG 101 ==
LOC: ED 19:19 → SUATTDRO 22:03 → 2S 22:03

== ENCOUNTER 2021-09-30 16:38 | Inpatient (IN) ==
[2021-09-30] MEDS ORDERED: LORazepam 1 MG TAB SL STA (17:25)
--- NOTE | 2021-09-30 17:51 | Emergency Department Note ---
Impression & Plan Hallucinations, Contusion of multiple sites ED Provider Note INFORMANT: Patient and friends ED PROVIDER(S): Shilo Aguayo MD CHIEF COMPLAINT: Hallucinations PLAN: Disposition: Admitted Condition: Improved Outpatient prescription management: none Referral: None MEDICAL DECISION MAKING: Patient presented because of hallucinations. Work-up was initiated. She was very tremulous. The patient stated that she has not had any alcohol in 4 weeks however patient's significant other states that she stopped drinking the day before the seizure occurred and that she drinks on a regular basis. The patient was treated with multiple doses of IV Ativan after sublingual Ativan and really had no effect. She required multiple doses to treat the tachycardia and her tremors. There was significant concerns for alcohol withdrawal. She clinically appeared to improve. The CT scan of the head did not reveal any acute findings. Patient had an ECG that showed septal Q waves and nonspecific ST abnormality. She was tachycardic. Her potassium was low at 3 and this was repleted orally. The patient had low magnesium and this was repleted IV. The patient was mildly dehydrated. A banana bag was ordered. The patient was found to have a mildly elevated troponin. Talk screen was negative. I discussed inpatient treatment the patient was in agreement. Consultation was made with Dr. Nic Maria of the [facility] service. Patient was evaluated in the ER for further management. Triage Nursing notes reviewed and agree them. Vital Signs: reviewed and remarkable for no significant abnormalities Differential diagnosis: Thought disorder, mood disorder, infection, hypoglycemia, electrolyte abnormalities, cardiac sources, intracerebral event, toxicologic, trauma, neurologic, as well as other pathologies. Diagnostics interpreted by me: ECG: Twelve-lead ECG reveals sinus tachycardia at 118 bpm. Septal Q waves present. Nonspecific ST present. Cardiac Monitoring: Cardiac monitoring ordered by me: The patient was placed on continuous cardiac monitoring and observed. It revealed sinus tachycardia at 108 beats per minute without ectopy or evidence of dysrhythmia. Imaging studies: Head CT: A noncontrast CT scan of the head was performed and was negative for tumor, fracture, intracranial hemorrhage, or other acute pathology. Mild fluid in the sphenoid sinus. HPI: The patient is a 41year old female who presents to the Emergency Room with complaints of hallucinations. This started last night and is described as auditory and visual as noted in the nursing chief complaint. The patient also notes the following associated symptoms, feeling very anxious. She also noted scattered bruises on the upper and lower extremities from bumping into things walking around her house at night when she was hearing the hallucinations. The patient has taken no medication for relieving factors. Current pain is rated as 0/10. Patient states that she also felt like reflections and glass and screens had an effect on her today. She was brought to the ER for further evaluation. Patient denies any drug use. States that she quit drinking alcohol about 4 weeks ago. Patient also notes about a week ago that she had a transient fever for 1 day and may have had a mini seizure. Pt denies LOC, headache, fevers, chills, diaphoresis, visual changes, neck pain, chest pain, breathing difficulties, nausea, vomiting, abdominal pain, back pain, melena, hematochezia, urinary symptoms, numbness, weakness, lymphadenopathy, rash, or other complaints. ROS: See above HPI for pertinent positives & negatives. A total of 10 systems reviewed and were otherwise negative. PAST MEDICAL HISTORY:Seizure, see below PAST SURGICAL HISTORY:See Below, FAMILY HISTORY:See Below SOCIAL HISTORY:See Below, employed. Quit alcohol HOME MEDICATIONS:See Below ALLERGIES:See Below VITALS:See Below PHYSICAL EXAMINATION: GENERAL: Awake, alert, very anxious-appearing, in no distress HENT: Normocephalic, atraumatic except for mild bruise on the lower inner left lip. Oropharynx unremarkable. EYES: Normal conjunctiva. Sclera non-icteric. NECK: Inspection normal. Non-tender. Supple. No nuchal rigidity. FROM. No masses. RESPIRATORY: Clear to auscultation. No wheezes. No rales. Normal respiratory effort. CARDIAC: Tachycardic rate. Normal rhythm. No murmurs. No rubs. Extremities warm and well perfused. Pulses equal. No JVD. GI: Soft, non-distended. No tenderness to palpation. No rebound or guarding. No masses. RECTAL: Deferred. MUSCULOSKELETAL: Scattered bruises on the upper and lower extremities. There is no bony deformity or significant tenderness. Chest examination reveals no tenderness. The back is symmetrical on inspection without obvious abnormality. There is no CVA tenderness to palpation. No joint edema. LOWER EXTREMITIES: Calves are equal size bilaterally and non-tender. No edema. No discoloration. NEURO: Normal sensorium. No sensory or motor deficits noted. SKIN: No rash or jaundice noted. PSYCH: Responding to external stimuli. Very anxious. No SI or HI. CRITICAL CARE: I have personally spent greater than 30 minutes of critical care time in the direct management of this patient. This includes bedside care, interpretation of diagnostic studies, and testing, discussion with consultants, patient, and other required patient management activities. This 30 minutes is in excess of all separately billable procedures. Shilo Aguayo MD Past Med/Surg History Medical History (Updated 09/30/21 @ 21:58 by Kerry Padron PA-C) Alcohol dependence Anorexia Family history unobtainable No significant past medical history PTSD (post-traumatic stress disorder) Surgical History (Updated 09/30/21 @ 21:58 by Kerry Padron PA-C) No significant past surgical history Surgical history unknown Family History (Updated 09/30/21 @ 21:58 by Kerry Padron PA-C) Other Family history non-contributory Social History Smoking Status: Never smoker Second Hand Exposure: No; Hx Alcohol Use: No (no alcohol use x 3-4 wks) Hx Substance Use: No Preferred Language: Fijian Beliefs That Will Affect Care: None marital status: Current Living Situation: Family Current Living Situation Comment: along with children current occupational status: employed Feels Safe at Home: Yes Assistive Devices: None Allergies Allergies Allergy/AdvReac Type Severity Reaction Status Date / Time No Known Allergies Allergy Verified 05/29/20 21:03 Home Meds Home Medications Medication Instructions Recorded Confirmed melatonin 5 mg capsule 5 mg PO PM PRN Sleep 05/11/20 09/30/21 buspirone 7.5 mg tablet 7.5 mg PO DAILY 05/29/20 09/30/21 potassium chloride 20 mEq 20 meq PO QAM 05/29/20 09/30/21 tablet,extended release bupropion HCl 150 mg 24 hr tablet, 150 mg PO DAILY 09/30/21 09/30/21 extended release escitalopram oxalate 20 mg tablet 20 mg PO DAILY 09/30/21 09/30/21 levetiracetam 250 mg tablet 250 mg PO BID 09/30/21 09/30/21 Results & Data (ED) Vital Signs Vital Signs - 24 hr 09/30/21 18:19 09/30/21 17:50 09/30/21 17:07 Temperature 37 C Temperature Source Oral Pulse Rate 128 H Pulse Rate [Left Finger] 128 H Pulse Rhythm [Left Finger] Respiratory Rate 24 24 Respiratory Effort / Characteristics Non-Labored Respiratory Depth Normal Blood Pressure [Left Arm] 158/104 H Blood Pressure Mean [Left Arm] 122 Pulse Oximetry 99 99 Oxygen Delivery Method Room Air Room Air Sepsis Recent Fever Within 48 Hours No Sepsis New/Unexplained Change in Mental Status N/A Sepsis Action Taken by Nursing No Action Required 09/30/21 19:13 09/30/21 21:00 Temperature Temperature Source Pulse Rate Pulse Rate [Left Finger] 108 H 102 H Pulse Rhythm [Left Finger] Regular Respiratory Rate 19 18 Respiratory Effort / Characteristics Respiratory Depth Blood Pressure [Left Arm] 128/89 97/70 L Blood Pressure Mean [Left Arm] 102 79 Pulse Oximetry 99 99 Oxygen Delivery Method Room Air Room Air Sepsis Recent Fever Within 48 Hours Sepsis New/Unexplained Change in Mental Status Sepsis Action Taken by Nursing Laboratory Data Result diagrams: 09/30/21 17:56 09/30/21 17:56 Lab Results 09/30/21 09/30/21 09/30/21 Range/Units 17:39 17:39 17:56 WBC 5.96 (4.8-10.8) K/ul RBC 3.91 L (3.93-5.22) M/uL Hgb 12.8 (12.0-16.0) g/dl Hct 36.6 (34.1-44.9) % MCV 93.6 (80.0-100.0) fL MCH 32.7 (25.0-34.0) pg MCHC 35.0 (32.0-36.0) g/dL RDW Std Deviation 50.0 H (36.4-46.3) fL RDW Coeff of Cliff 14.6 H (11.5-14.5) % Plt Count 178 (130-400) K/uL MPV 10.1 (9.4-12.3) fL Immature Gran % (Auto) 0.5 % Neut % (Auto) 76.0 % Lymph % (Auto) 12.1 % Dubois % (Auto) 10.6 % Eos % (Auto) 0.5 % Baso % (Auto) 0.3 % Neut # (Auto) 4.53 (1.4-6.5) K/uL Lymph # (Auto) 0.72 L (1.2-3.4) K/uL Dubois # (Auto) 0.63 (0.24-0.82) K/uL Eos # (Auto) 0.03 (0-0.50) K/uL Baso # (Auto) 0.02 (0-0.2) K/uL Immature Gran # (Auto) 0.03 H (0.00-0.02) K/uL Sodium (136-145) mmol/L Potassium (3.5-5.1) mmol/L Chloride (98-107) mmol/L Carbon Dioxide (21-32) mmol/L Anion Gap (3-11) BUN (6-23) mg/dl Creatinine (0.6-1.2) mg/dl Est Cr Clr Drug Dosing ml/min Est GFR ( Amer) ml/min Est GFR (Non-Af Amer) ml/min BUN/Creatinine Ratio (10-20) Glucose (70-99(Fasting)) mg/dl Calcium (8.5-10.1) mg/dl Magnesium (1.7-2.4) mg/dl Total Bilirubin (0.2-1.0) mg/dl AST (13-39) U/L ALT (7-52) U/L Alkaline Phosphatase (34-104) U/L Troponin I High Sens (0-14) pg/ml Total Protein (6.0-8.3) gm/dl Albumin (3.4-5.0) gm/dl Globulin (2.5-4.0) gm/dl Albumin/Globulin Ratio (0.9-2) TSH (0.300-4.500) uIu/ml HCG, Qual (Negative) Urine Color Dark Yellow Urine Appearance Cloudy A (Clear) Urine pH 5.5 (4.5-7.5) Ur Specific Bartow 1.031 H (1.000-1.030) Urine Protein 3+ H (Negative) Urine Glucose (UA) Negative (Negative) Urine Ketones 1+ H (Negative) Urine Blood 1+ H (Negative) Urine Nitrite Negative (Negative) Urine Bilirubin 2+ H (Negative) Urine Urobilinogen Negative (Negative) Ur Leukocyte Esterase Trace H (Negative) Urine WBC (Auto) >30 H (0-5) /hpf Urine RBC (Auto) 0-4 (0-4) /hpf U Hyaline Cast (Auto) >30 H (0-5) /lpf U Epithel Cells (Auto) >30 H (0-5) /lpf Urine Bacteria (Auto) 1+ H (Negative) Salicylates (3.0-30) mg/dl Urine Opiates Screen Neg (Neg) Ur Methadone, Qual Neg (Neg) Acetaminophen (10-30) ug/ml Urine Barbiturates Neg (Neg) Ur Phencyclidine (PCP) Neg (Neg) U Amphetamin/Meth Scrn Neg (Neg) MDMA (Ecstasy) Screen Pos H (Neg) U Benzodiazepines Scrn Neg (Neg) Ur Cocaine Metabolite Neg (Neg) U Marijuana (THC) Screen Neg (Neg) Ethyl Alcohol mg/dL (<10.0) mg/dl SARS-CoV-2, RNA, NAAT (NEGATIVE) 09/30/21 09/30/21 09/30/21 Range/Units 17:56 17:56 17:56 WBC (4.8-10.8) K/ul RBC (3.93-5.22) M/uL Hgb (12.0-16.0) g/dl Hct (34.1-44.9) % MCV (80.0-100.0) fL MCH (25.0-34.0) pg MCHC (32.0-36.0) g/dL RDW Std Deviation (36.4-46.3) fL RDW Coeff of Cliff (11.5-14.5) % Plt Count (130-400) K/uL MPV (9.4-12.3) fL Immature Gran % (Auto) % Neut % (Auto) % Lymph % (Auto) % Dubois % (Auto) % Eos % (Auto) % Baso % (Auto) % Neut # (Auto) (1.4-6.5) K/uL Lymph # (Auto) (1.2-3.4) K/uL Dubois # (Auto) (0.24-0.82) K/uL Eos # (Auto) (0-0.50) K/uL Baso # (Auto) (0-0.2) K/uL Immature Gran # (Auto) (0.00-0.02) K/uL Sodium 136 (136-145) mmol/L Potassium 3.0 L (3.5-5.1) mmol/L Chloride 97 L (98-107) mmol/L Carbon Dioxide 25 (21-32) mmol/L Anion Gap 14 H (3-11) BUN 22 (6-23) mg/dl Creatinine 0.91 (0.6-1.2) mg/dl Est Cr Clr Drug Dosing 69.5 ml/min Est GFR ( Amer) 91.5 ml/min Est GFR (Non-Af Amer) 78.9 ml/min BUN/Creatinine Ratio 24.2 H (10-20) Glucose 111 H (70-99(Fasting)) mg/dl Calcium 10.7 H (8.5-10.1) mg/dl Magnesium 1.4 L (1.7-2.4) mg/dl Total Bilirubin 1.0 (0.2-1.0) mg/dl AST 70 H (13-39) U/L ALT 38 (7-52) U/L Alkaline Phosphatase 61 (34-104) U/L Troponin I High Sens (0-14) pg/ml Total Protein 8.1 (6.0-8.3) gm/dl Albumin 4.9 (3.4-5.0) gm/dl Globulin 3.2 (2.5-4.0) gm/dl Albumin/Globulin Ratio 1.5 (0.9-2) TSH 2.451 (0.300-4.500) uIu/ml HCG, Qual (Negative) Urine Color Urine Appearance (Clear) Urine pH (4.5-7.5) Ur Specific Bartow (1.000-1.030) Urine Protein (Negative) Urine Glucose (UA) (Negative) Urine Ketones (Negative) Urine Blood (Negative) Urine Nitrite (Negative) Urine Bilirubin (Negative) Urine Urobilinogen (Negative) Ur Leukocyte Esterase (Negative) Urine WBC (Auto) (0-5) /hpf Urine RBC (Auto) (0-4) /hpf U Hyaline Cast (Auto) (0-5) /lpf U Epithel Cells (Auto) (0-5) /lpf Urine Bacteria (Auto) (Negative) Salicylates < 3.0 L (3.0-30) mg/dl Urine Opiates Screen (Neg) Ur Methadone, Qual (Neg) Acetaminophen < 3 L (10-30) ug/ml Urine Barbiturates (Neg) Ur Phencyclidine (PCP) (Neg) U Amphetamin/Meth Scrn (Neg) MDMA (Ecstasy) Screen (Neg) U Benzodiazepines Scrn (Neg) Ur Cocaine Metabolite (Neg) U Marijuana (THC) Screen (Neg) Ethyl Alcohol mg/dL (<10.0) mg/dl SARS-CoV-2, RNA, NAAT (NEGATIVE) 09/30/21 09/30/21 09/30/21 Range/Units 17:56 17:56 17:56 WBC (4.8-10.8) K/ul RBC (3.93-5.22) M/uL Hgb (12.0-16.0) g/dl Hct (34.1-44.9) % MCV (80.0-100.0) fL MCH (25.0-34.0) pg MCHC (32.0-36.0) g/dL RDW Std Deviation (36.4-46.3) fL RDW Coeff of Cliff (11.5-14.5) % Plt Count (130-400) K/uL MPV (9.4-12.3) fL Immature Gran % (Auto) % Neut % (Auto) % Lymph % (Auto) % Dubois % (Auto) % Eos % (Auto) % Baso % (Auto) % Neut # (Auto) (1.4-6.5) K/uL Lymph # (Auto) (1.2-3.4) K/uL Dubois # (Auto) (0.24-0.82) K/uL Eos # (Auto) (0-0.50) K/uL Baso # (Auto) (0-0.2) K/uL Immature Gran # (Auto) (0.00-0.02) K/uL Sodium (136-145) mmol/L Potassium (3.5-5.1) mmol/L Chloride (98-107) mmol/L Carbon Dioxide (21-32) mmol/L Anion Gap (3-11) BUN (6-23) mg/dl Creatinine (0.6-1.2) mg/dl Est Cr Clr Drug Dosing ml/min Est GFR ( Amer) ml/min Est GFR (Non-Af Amer) ml/min BUN/Creatinine Ratio (10-20) Glucose (70-99(Fasting)) mg/dl Calcium (8.5-10.1) mg/dl Magnesium Cancelled (1.7-2.4) mg/dl Total Bilirubin (0.2-1.0) mg/dl AST (13-39) U/L ALT (7-52) U/L Alkaline Phosphatase (34-104) U/L Troponin I High Sens (0-14) pg/ml Total Protein (6.0-8.3) gm/dl Albumin (3.4-5.0) gm/dl Globulin (2.5-4.0) gm/dl Albumin/Globulin Ratio (0.9-2) TSH (0.300-4.500) uIu/ml HCG, Qual Negative (Negative) Urine Color Urine Appearance (Clear) Urine pH (4.5-7.5) Ur Specific Bartow (1.000-1.030) Urine Protein (Negative) Urine Glucose (UA) (Negative) Urine Ketones (Negative) Urine Blood (Negative) Urine Nitrite (Negative) Urine Bilirubin (Negative) Urine Urobilinogen (Negative) Ur Leukocyte Esterase (Negative) Urine WBC (Auto) (0-5) /hpf Urine RBC (Auto) (0-4) /hpf U Hyaline Cast (Auto) (0-5) /lpf U Epithel Cells (Auto) (0-5) /lpf Urine Bacteria (Auto) (Negative) Salicylates (3.0-30) mg/dl Urine Opiates Screen (Neg) Ur Methadone, Qual (Neg) Acetaminophen (10-30) ug/ml Urine Barbiturates (Neg) Ur Phencyclidine (PCP) (Neg) U Amphetamin/Meth Scrn (Neg) MDMA (Ecstasy) Screen (Neg) U Benzodiazepines Scrn (Neg) Ur Cocaine Metabolite (Neg) U Marijuana (THC) Screen (Neg) Ethyl Alcohol mg/dL < 10.0 (<10.0) mg/dl SARS-CoV-2, RNA, NAAT (NEGATIVE) 09/30/21 09/30/21 Range/Units 17:56 18:08 WBC (4.8-10.8) K/ul RBC (3.93-5.22) M/uL Hgb (12.0-16.0) g/dl Hct (34.1-44.9) % MCV (80.0-100.0) fL MCH (25.0-34.0) pg MCHC (32.0-36.0) g/dL RDW Std Deviation (36.4-46.3) fL RDW Coeff of Cliff (11.5-14.5) % Plt Count (130-400) K/uL MPV (9.4-12.3) fL Immature Gran % (Auto) % Neut % (Auto) % Lymph % (Auto) % Dubois % (Auto) % Eos % (Auto) % Baso % (Auto) % Neut # (Auto) (1.4-6.5) K/uL Lymph # (Auto) (1.2-3.4) K/uL Dubois # (Auto) (0.24-0.82) K/uL Eos # (Auto) (0-0.50) K/uL Baso # (Auto) (0-0.2) K/uL Immature Gran # (Auto) (0.00-0.02) K/uL Sodium (136-145) mmol/L Potassium (3.5-5.1) mmol/L Chloride (98-107) mmol/L Carbon Dioxide (21-32) mmol/L Anion Gap (3-11) BUN (6-23) mg/dl Creatinine (0.6-1.2) mg/dl Est Cr Clr Drug Dosing ml/min Est GFR ( Amer) ml/min Est GFR (Non-Af Amer) ml/min BUN/Creatinine Ratio (10-20) Glucose (70-99(Fasting)) mg/dl Calcium (8.5-10.1) mg/dl Magnesium (1.7-2.4) mg/dl Total Bilirubin (0.2-1.0) mg/dl AST (13-39) U/L ALT (7-52) U/L Alkaline Phosphatase (34-104) U/L Troponin I High Sens 39.4 H (0-14) pg/ml Total Protein (6.0-8.3) gm/dl Albumin (3.4-5.0) gm/dl Globulin (2.5-4.0) gm/dl Albumin/Globulin Ratio (0.9-2) TSH (0.300-4.500) uIu/ml HCG, Qual (Negative) Urine Color Urine Appearance (Clear) Urine pH (4.5-7.5) Ur Specific Bartow (1.000-1.030) Urine Protein (Negative) Urine Glucose (UA) (Negative) Urine Ketones (Negative) Urine Blood (Negative) Urine Nitrite (Negative) Urine Bilirubin (Negative) Urine Urobilinogen (Negative) Ur Leukocyte Esterase (Negative) Urine WBC (Auto) (0-5) /hpf Urine RBC (Auto) (0-4) /hpf U Hyaline Cast (Auto) (0-5) /lpf U Epithel Cells (Auto) (0-5) /lpf Urine Bacteria (Auto) (Negative) Salicylates (3.0-30) mg/dl Urine Opiates Screen (Neg) Ur Methadone, Qual (Neg) Acetaminophen (10-30) ug/ml Urine Barbiturates (Neg) Ur Phencyclidine (PCP) (Neg) U Amphetamin/Meth Scrn (Neg) MDMA (Ecstasy) Screen (Neg) U Benzodiazepines Scrn (Neg) Ur Cocaine Metabolite (Neg) U Marijuana (THC) Screen (Neg) Ethyl Alcohol mg/dL (<10.0) mg/dl SARS-CoV-2, RNA, NAAT NEGATIVE (NEGATIVE) Administered Medications Folic Acid (Folic Acid 1 Mg Tab) 1 mg PO QAM [facility] Stop: 10/30/21 23:52 Last Admin: 10/01/21 01:00 Dose: Not Given Documented By: RICO Potassium Chloride/Sodium Chloride (Normal Saline W/20 Meq Kcl) 20 meq in 1,000 mls @ 125 mls/hr IV .Q8H [facility] Stop: 10/01/21 07:52 Last Admin: 10/01/21 01:19 Dose: 125 mls/hr Documented By: RICO Magnesium Sulfate/Dextrose (Magnesium Sulfate / D5w) 1 gm in 100 mls @ 50 mls/hr IV Q2H [facility] Stop: 10/01/21 04:14 Last Admin: 10/01/21 01:19 Dose: 50 mls/hr Documented By: RICO Thiamine HCl (Thiamine Hcl 100 Mg Tab) 100 mg PO QAM [facility] Stop: 10/30/21 23:52 Last Admin: 10/01/21 01:00 Dose: Not Given Documented By: RICO Discontinued Medications Magnesium Sulfate/Dextrose (Magnesium Sulfate / D5w) 1 gm in 100 mls @ 100 mls/hr IV NOW STA Stop: 09/30/21 21:28 Last Infusion: 09/30/21 21:52 Dose: 0 mls/hr Documented By: Admin: 09/30/21 20:50 Dose: 100 mls/hr Documented By: NALLELY Multivitamins 10 ml/ Thiamine HCl 100 mg/ Folic Acid 1 mg/Sodium Chloride 1,011.2 mls @ 1,011.2 mls/hr IV .Q1H ONE Stop: 09/30/21 21:34 Last Infusion: 10/01/21 01:24 Dose: 0 mls/hr Documented By: Admin: 09/30/21 22:00 Dose: 1,011.2 mls/hr Documented By: NALLELY Lorazepam 1 mg/ Syringe 1 mls @ 2 mls/min IV ONE PRN; Protocol PRN Reason: EtoH Withdrawal AWSS 6,7,8,9,10 Stop: 10/30/21 21:46 Last Admin: 09/30/21 22:08 Dose: 2 mls/min Documented By: NALLELY Lorazepam 3 mg/ Syringe 3 mls @ 2 mls/min IV ONCE PRN; Protocol PRN Reason: EtOH Withdrawal AWSS Score 10 & above Last Admin: 09/30/21 23:25 Dose: 2 mls/min Documented By: RICO Lorazepam (Lorazepam 1 Mg Tab) 1 mg SL NOW STA Stop: 09/30/21 17:26 Last Admin: 09/30/21 17:57 Dose: 1 mg Documented By: KOREY Lorazepam (Lorazepam 2 Mg/1 Ml Vial) 2 mg IV NOW STA; Protocol Stop: 09/30/21 18:34 Last Admin: 09/30/21 18:43 Dose: 2 mg Documented By: KOREY Lorazepam (Lorazepam 2 Mg/1 Ml Vial) 2 mg IV NOW STA; Protocol Stop: 09/30/21 19:17 Last Admin: 09/30/21 19:22 Dose: 2 mg Documented By: NALLELY Lorazepam (Lorazepam 2 Mg/1 Ml Vial) 2 mg IV NOW STA; Protocol Stop: 09/30/21 20:40 Last Admin: 09/30/21 20:50 Dose: 2 mg Documented By: NALLELY Lorazepam (Lorazepam 2 Mg/1 Ml Vial) Confirm Administered Dose 3 mg .ROUTE .STK- MED ONE Stop: 09/30/21 23:24 Last Admin: 09/30/21 23:29 Dose: Not Given Documented By: RICO Olanzapine (Olanzapine 10 Mg/2.1 Ml Sdv) 5 mg IM NOW STA Stop: 09/30/21 22:51 Last Admin: 09/30/21 23:00 Dose: 5 mg Documented By: NALLELY Olanzapine (Olanzapine 10 Mg/2.1 Ml Sdv) Confirm Administered Dose 10 mg IM .STK-MED ONE Stop: 09/30/21 22:54 Last Admin: 09/30/21 23:01 Dose: Not Given Documented By: NALLELY Olanzapine (Olanzapine 10 Mg/2.1 Ml Sdv) 5 mg IM NOW STA Stop: 10/01/21 00:20 Last Admin: 10/01/21 00:32 Dose: 5 mg Documented By: ADRIEN Olanzapine (Olanzapine 10 Mg/2.1 Ml Sdv) 5 mg IM NOW STA Stop: 10/01/21 00:39 Last Admin: 10/01/21 00:45 Dose: 5 mg Documented By: RICO Potassium Chloride (Potassium Chloride Crtab 20 Meq Tabcr) 20 meq PO NOW STA Stop: 09/30/21 20:30 Last Admin: 09/30/21 20:50 Dose: 20 meq Documented By: NALLELY Imaging Data Radiologist's Impression: Head CT 09/30/21 17:[address] DOSE: 537.48 mGy.cm HISTORY: hallucinations TECHNIQUE: Multiaxial CT images of the head were performed without the use of intravenous contrast. Automated exposure control was utilized for this study. A dose lowering technique was utilized adhering to the principles of ALARA. Comparison: Head CT 05/29/2020. Findings: Small fluid level within the left sphenoid sinus. The mastoid air cells are clear. The calvarium and skull base are intact. The ventricles and sulci are within normal limits. There is no mass, hematoma, midline shift, or acute infarct. Impression: 1. No acute intracranial abnormality. 2. Small fluid level within the left sphenoid sinus. ACT 112: Negative or not required by law. Electronically signed by: Clarence Lind M.D. 09/30/2021 7:33 PM Discharge Plan Visit Data Chief Complaint: Mental Health Evaluation Stated Complaint: MENTAL HEALTH EVALUTION ED Provider: Shilo Aguayo Discharge Problem: Hallucinations, Contusion of multiple sites Patient Disposition: Admitted As Inpatient Discharge Instructions Interventions: ED Discharge Assessment Last Done: 10/01/21 00:06
[2021-09-30 18:18] LABS: Basophils # (auto) 0.02 K/uL (0-0.2); Basophils % (auto) 0.3 %; Eosinophils # (auto) 0.03 K/uL (0-0.50); Eosinophils % (auto) 0.5 %; Hematocrit (blood only) 36.6 % (34.1-44.9); Hemoglobin 12.8 g/dl (12.0-16.0); Immature Granulocytes # (auto) 0.03 K/uL (0.00-0.02); Immature Granulocytes % (auto) 0.5 %; Lymphocytes # (auto) 0.72 K/uL (1.2-3.4); Lymphocytes % (auto) 12.1 %; Mean Corpuscular Hemoglobin 32.7 pg (25.0-34.0); Mean Corpuscular Volume 93.6 fL (80.0-100.0); Mean Platelet Volume 10.1 fL (9.4-12.3); Monocytes # (auto) 0.63 K/uL (0.24-0.82); Monocytes % (auto) 10.6 %; Neutrophils # (auto) 4.53 K/uL (1.4-6.5); Platelet Count 178 K/uL (130-400); RDW Coefficient of Variation 14.6 % (11.5-14.5); Red Blood Count 3.91 M/uL (3.93-5.22); White Blood Count 5.96 K/ul (4.8-10.8)
[2021-09-30] MEDS ORDERED: LORazepam 2 MG/1 ML VIAL IV STA ×3 (18:33→20:39)
[2021-09-30 18:41] LABS: Appearance Urine Cloudy (Clear); Bacteria Urine Automated 1+ (Negative); Blood Urine 1+ (Negative); Color Urine Dark Yellow; Epithelial Cell Urine Auto >30 /lpf (0-5); Glucose Urine UA Negative (Negative); Ketones Urine 1+ (Negative); Leukocyte Esterase Urine Trace (Negative); Nitrite Urine Negative (Negative); Protein Urine 3+ (Negative); Specific Gravity Urine 1.031 (1.000-1.030); Urobilinogen Urine Negative (Negative); WBC Urine Automated >30 /hpf (0-5); pH Urine 5.5 (4.5-7.5)
[2021-09-30 18:42] LABS: Bilirubin Urine 2+ (Negative); Cast Urine Automated >30 /lpf (0-5)
[2021-09-30 18:46] LABS: Acetaminophen < 3 ug/ml (10-30); Salicylate < 3.0 mg/dl (3.0-30)
[2021-09-30 18:47] LABS: BUN Creatinine Ratio 24.2 (10-20); Calcium 10.7 mg/dl (8.5-10.1); Creatinine Clr Calc Pharmacy 69.5 ml/min; Est GFR (African American) 91.5 ml/min; Est GFR (Non-African American) 78.9 ml/min
[2021-09-30 18:48] LABS: Albumin Globulin Ratio 1.5 (0.9-2); Albumin Level 4.9 gm/dl (3.4-5.0); Globulin 3.2 gm/dl (2.5-4.0); Magnesium 1.4 mg/dl (1.7-2.4); Total Protein 8.1 gm/dl (6.0-8.3)
[2021-09-30 18:51] LABS: Pregnancy Test, Serum Negative (Negative)
[2021-09-30 18:51] LABS: RBC Urine Automated 0-4 /hpf (0-4)
[2021-09-30 19:33] LABS: Amphetamines+Metham, Urine Neg (Neg); Barbiturates, Urine Neg (Neg); Benzodiazepine, Urine Neg (Neg); Cocaine, Urine Neg (Neg); MDMA (Ecstacy), Urine Pos (Neg); Methadone, Urine Neg (Neg); Opiate, Urine Neg (Neg); Phencyclidine, Urine Neg (Neg)
--- NOTE | 2021-09-30 19:35 | CT Scan Report ---
HEAD CT NONCONTRAST CT DOSE: 537.48 mGy.cm HISTORY: hallucinations TECHNIQUE: Multiaxial CT images of the head were performed without the use of intravenous contrast. A utomated exposure control was utilized for this study. A dose lowering technique was utilized adheri ng to the principles of ALARA. Comparison: Head CT 05/29/2020. Findings: Small fluid level within the left sphenoid sinus. The mastoid air cells are clear. The calv arium and skull base are intact. The ventricles and sulci are within normal limits. There is no mass, hematoma, midline shift, or acute infarct. Impression: 1. No acute intracranial abnormality. 2. Small fluid level within the left sphenoid sinus. ACT 112: Negative or not required by law. Electronically signed by: Clarence Lind M.D. 09/30/2021 7:33 PM
[2021-09-30] MEDS ORDERED: POTASSIUM CHLORIDE CRTAB 20 MEQ TABCR PO STA (20:29)
[2021-09-30] MEDS ORDERED: MAGNESIUM SULFATE / D5W 1 GM/100 ML BAG IV STA (20:29)
[2021-09-30] MEDS ORDERED: MULTI-VITAMIN INFUSION 10 ML, THIAMINE HCL 100 MG, FOLIC ACID 1 MG in SODIUM CHLORIDE 0... IV ONE (20:35)
--- NOTE | 2021-09-30 20:59 | History & Physical Report ---
Date of Service September 30, 2021 Assessment & Plan (1) Hypokalemia: Plan: - 3.0, with 20 mEq PO ordered in ED. Suspect low in setting of poor po intake/hx of anorexia/alcohol abuse. - NSS 125 cc/hr with 20 mEq/L. - Continue daily KCl supplementation in AM. - Recheck electrolytes on AM BMP. (2) Hypomagnesemia: Plan: - 1.4, with 1 g Mg ordered in ED, again suspect due to poor po intake with history of anorexia, alcohol abuse. - 2 additional grams ordered. - Recheck with AM labs. (3) Alcohol dependence: Plan: - Stated last drink 5 days ago. She is hallucinating, suspect it is related to EtOH withdrawal, cannot rule out psychiatric disorder, MDMA use. - So far has received multiple doses of IV and SL Ativan. - AWSS, seizure precautions. - EtoH level neg in ED. - Banana bag in ED. Continue thiamine and folate supplementation daily. - Continue Keppra 250 mg BID - Keppra level w/ AM labs. (4) Anorexia: Plan: - Documented history of on previous admission. BMI 18.0. - Albumin 4.9, protein 8.1. (5) Seizure: Plan: - Reported history of at home, does have bruises on body. Was also reportedly walking throughout her home last evening interacting with auditory and visual hallucinations, may have been bumping into things. - Seizure precautions. She is prescribed Keppra 250 mg BID, cannot recall if she is actually taking this, doesn't think she is but it was prescribed just 3 days ago. - Was seen last year by neurology for syncope vs seizure activity. 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 - Keppra level in AM. (6) Hallucinations: Plan: - Visual and auditory, seeing fictional and historical characters that dance and sing, but not telling her to harm herself or others. - Reported history of PTSD, depression, alcohol abuse. - AWSS as above for suspected EtOH withdrawal, with PRN Haldol for agitation/dangerous behavior towards self or staff. (7) PTSD (post-traumatic stress disorder): Plan: - Continue Wellbutrin and BuSpar. Prescribed Lexapro but reportedly not taking, at least not consistently. - Suspect Wellbutrin may be causing false positive MDMA on UDS. She denies knowingly ingesting any illicit substances. Plan - Admit to PCU. - SCDs for VTE ppx. - Full Code. History of Present Illness Chief Complaint: hallucinations at home today Primary Care Provider: Raul Camejo Vilma Falcon is a 41-year-old female with past medical history significant for alcohol dependence, anorexia, depression, and PTSD who presents to the ED today with complaints hallucinations. She reported to ED nursing staff earlier that she was seeing visual hallucinations of family members in her home in the middle of the night urging her to leave her boyfriend or else he would kill her and her children. See nurse from this evening. On my exam, patient is unable to explain to me what brought her into the emergency room, or how she got here. She is rapid, tangential speech and is describing to me visual hallucinations that are dancing and singing in the room. Not much meaningful history able to be obtained, she reports she drinks about 5 days/week typically 1 beer or janee per day, however has not had a drink in 5 days but she denies ever withdrawing from alcohol. Denies illicit drug use. States she has been taking Wellbutrin and BuSpar, denies taking Lexapro, although she says it has recently been prescribed to her, also see the Nelli. 50 mg twice daily has been prescribed on 09/27, patient denies taking this medication. She denies SI or HI, states the hallucinations she is seeing and hearing are not telling her to harm herself or others. In the ED, pressures 97/70 , HR 102, afebrile, 99% on room air. Labs signif icant for potassium 3.0, magnesium 1.4, calcium slightly elevated 10.7, AST 70, troponin 1.4. Urine drug screen positive for ecstasy, otherwise negative, alcohol level < 10. Head CT unremarkable. Allergies Allergy/AdvReac Type Severity Reaction Status Date / Time No Known Allergies Allergy Verified 05/29/20 21:03 Home Medications Medication Instructions Recorded Confirmed Type melatonin 5 mg capsule 5 mg PO PM PRN Sleep 05/11/20 09/30/21 History buspirone 7.5 mg tablet 7.5 mg PO DAILY 05/29/20 09/30/21 History potassium chloride 20 mEq 20 meq PO QAM 05/29/20 09/30/21 History tablet,extended release bupropion HCl 150 mg 24 hr tablet, 150 mg PO DAILY 09/30/21 09/30/21 History extended release escitalopram oxalate 20 mg tablet 20 mg PO DAILY 09/30/21 09/30/21 History levetiracetam 250 mg tablet 250 mg PO BID 09/30/21 09/30/21 History Past Med/Surg History Medical History (Updated 10/01/21 @ 02:22 by Teresa Dixon PA-C) Alcohol dependence Anorexia Family history unobtainable No significant past medical history PTSD (post-traumatic stress disorder) Surgical History (Updated 09/30/21 @ 21:58 by Kerry Padron PA-C) No significant past surgical history Surgical history unknown Family History (Updated 09/30/21 @ 21:58 by Kerry Padron PA-C) Other Family history non-contributory Social History Smoking Status: Never smoker Second Hand Exposure: No; Hx Alcohol Use: Yes Alcohol type: beer Hx Substance Use: No Preferred Language: Japanese Communication Ability: Effective Portable Trackman Required: No Beliefs That Will Affect Care: None marital status: Current Living Situation: Family Current Living Situation Comment: along with children current occupational status: employed Feels Safe at Home: Yes Safety Concerns: Feels Safe At This Time Assistive Devices: Glasses Review of Systems Review of Systems: Unobtainable due to mental health condition Physical Exam Physical Exam: General: awake, alert, visibly anxious, no acute distress Head: Normocephalic, atraumatic ENT: PERRL, EOMI, no pharyngeal exudate, mucous membranes moist Chest: Clear to auscultation, on room air, no adventitious breath sounds Cardiac: Regular rate and rhythm, no murmur, no JVD, normal peripheral pulses, good capillary refill Abdominal: NABS x 4 quadrants, soft, nontender to palpation, no rebound, guarding or tenderness Extremities: Normal inspection, no peripheral edema or erythema, calfs nontender to palpation Psych: anxious, tangential, rapid speech, no SI/HI Neuro: AAO x 3, strength intact bilaterally and rated 5/5, no motor deficits, speech is clear, no peripheral sensory deficits Skin: bruises on b/l arms and legs Results & Data Results & Data ([facility]) Vital Signs (Past 12 Hours) Vital Signs Temp Pulse Pulse Resp BP Pulse Ox O2 Del Method 09/30/21 19:13 108 H 19 128/89 99 Room Air 09/30/21 17:50 128 H 24 99 Room Air 09/30/21 18:19 37 C 128 H 24 158/104 H 99 Room Air Laboratory Results Abnormal lab results 09/30/21 09/30/21 09/30/21 Range/Units 17:39 17:39 17:56 RBC 3.91 L (3.93-5.22) M/uL RDW Std Deviation 50.0 H (36.4-46.3) fL RDW Coeff of Cliff 14.6 H (11.5-14.5) % Lymph # (Auto) 0.72 L (1.2-3.4) K/uL Immature Gran # (Auto) 0.03 H (0.00-0.02) K/uL Potassium (3.5-5.1) mmol/L Chloride (98-107) mmol/L Anion Gap (3-11) BUN/Creatinine Ratio (10-20) Glucose (70-99(Fasting)) mg/dl Calcium (8.5-10.1) mg/dl Magnesium (1.7-2.4) mg/dl AST (13-39) U/L Troponin I High Sens (0-14) pg/ml Urine Appearance Cloudy A (Clear) Ur Specific [place] 1.031 H (1.000-1.030) Urine Protein 3+ H (Negative) Urine Ketones 1+ H (Negative) Urine Blood 1+ H (Negative) Urine Bilirubin 2+ H (Negative) Ur Leukocyte Esterase Trace H (Negative) Urine WBC (Auto) >30 H (0-5) /hpf U Hyaline Cast (Auto) >30 H (0-5) /lpf U Epithel Cells (Auto) >30 H (0-5) /lpf Urine Bacteria (Auto) 1+ H (Negative) Salicylates (3.0-30) mg/dl Acetaminophen (10-30) ug/ml MDMA (Ecstasy) Screen Pos H (Neg) 09/30/21 09/30/21 09/30/21 Range/Units 17:56 17:56 17:56 RBC (3.93-5.22) M/uL RDW Std Deviation (36.4-46.3) fL RDW Coeff of Cliff (11.5-14.5) % Lymph # (Auto) (1.2-3.4) K/uL Immature Gran # (Auto) (0.00-0.02) K/uL Potassium 3.0 L (3.5-5.1) mmol/L Chloride 97 L (98-107) mmol/L Anion Gap 14 H (3-11) BUN/Creatinine Ratio 24.2 H (10-20) Glucose 111 H (70-99(Fasting)) mg/dl Calcium 10.7 H (8.5-10.1) mg/dl Magnesium 1.4 L (1.7-2.4) mg/dl AST 70 H (13-39) U/L Troponin I High Sens 39.4 H (0-14) pg/ml Urine Appearance (Clear) Ur Specific [place] (1.000-1.030) Urine Protein (Negative) Urine Ketones (Negative) Urine Blood (Negative) Urine Bilirubin (Negative) Ur Leukocyte Esterase (Negative) Urine WBC (Auto) (0-5) /hpf U Hyaline Cast (Auto) (0-5) /lpf U Epithel Cells (Auto) (0-5) /lpf Urine Bacteria (Auto) (Negative) Salicylates < 3.0 L (3.0-30) mg/dl Acetaminophen < 3 L (10-30) ug/ml MDMA (Ecstasy) Screen (Neg) Diagnostic Findings Head CT 09/30/21 17:[address] DOSE: 537.48 mGy.cm HISTORY: hallucinations TECHNIQUE: Multiaxial CT images of the head were performed without the use of intravenous contrast. Automated exposure control was utilized for this study. A dose lowering technique was utilized adhering to the principles of ALARA. Comparison: Head CT 05/29/2020. Findings: Small fluid level within the left sphenoid sinus. The mastoid air cells are clear. The calvarium and skull base are intact. The ventricles and sulci are within normal limits. There is no mass, hematoma, midline shift, or acute infarct. Impression: 1. No acute intracranial abnormality. 2. Small fluid level within the left sphenoid sinus. ACT 112: Negative or not required by law. Electronically signed by: Clarence Lind M.D. 09/30/2021 7:33 PM ECG Additional Comments: Sinus tachycardia Septal infarct (cited on or before 30-SEP-2021) Abnormal ECG When compared with ECG of 30-MAY-2020 11:00, Serial changes of Septal infarct Present. Code Status & VTE Plan Code Status Full Code. Supervising Physician Co-Signing Physician Notes Attending addendum: I have physically seen this patient, have supervised the CARLOS's activities, and agree with the H&P unless as otherwise noted. Assessment and Plan: Alcohol withdrawal/alcohol dependence/hallucinations/PTSD history- Requiring large doses of IV Ativan while in the ED AWSS protocol Completing banana bag in the ED Continue Wellbutrin and BuSpar MDMA likely false positive from Wellbutrin Thiamine 100 mg p.o. daily Folate 1 mg p.o. daily Nephrocaps 1 p.o. twice daily Will need to go to ICU due to severity of withdrawal symptoms, for phenobarbital IV or Precedex Electrolyte disturbances/hypokalemia Replace and retest Total critical care time 50 minutes PG Care Time/CCT Total # of Minutes Spent Total Time Spent with Patient: Total time spent is greater than 50% in coordination of care (as documented) at patient's floor/unit and/or counseling patient: 50 minutes Coding Level of Care Code 51072 Initial Inpt Care Lvl 3 Diagnoses Hypokalemia E87.6 Hypomagnesemia E83.42 Alcohol dependence F10.239 Complication of substance-induced condition: with unspecified complication Substance use status: in withdrawal Anorexia R63.0 Seizure R56.9 Hallucinations R44.3 PTSD (post-traumatic stress disorder) F43.10 (1) Alcohol dependence Complication of substance-induced condition: with unspecified complication Substance use status: in withdrawal Qualified Code(s): F10.239 - Alcohol dependence with withdrawal, unspecified
[2021-09-30] MEDS ORDERED: LORazepam 1 MG in SYRINGE 0.5 ML IV PRN (21:47)
[2021-09-30] MEDS ORDERED: OLANZapine 10 MG/2.1 ML SDV IM STA (22:50)
[2021-09-30] MEDS ORDERED: Ativan IV Alcohol Withdrawal--Active Protocol IV PRN (22:52)
[2021-09-30] MEDS ORDERED: LORazepam 3 MG in SYRINGE 1.5 ML IV PRN (22:52)
[2021-09-30] MEDS ORDERED: OLANZapine 10 MG/2.1 ML SDV IM ONE (22:53)
[2021-09-30] MEDS ORDERED: LORazepam 2 MG/1 ML VIAL ONE (23:23)
[2021-09-30] MEDS ORDERED: HALOPERIDOL LACTATE 5 MG/ML 1 ML VIAL IM PRN (23:53)
[2021-09-30] MEDS ORDERED: NSS + 20MEQ KCL 20 MEQ/1,000 ML BAG IV SCH (23:53)
[2021-09-30] MEDS ORDERED: ACETAMINOPHEN 325 MG TAB PO PRN (23:53)
[2021-09-30] MEDS ORDERED: POLYETHYLENE (MIRALAX) 17 GM PACK PO PRN (23:53)
[2021-09-30] MEDS ORDERED: THIAMINE HCL 100 MG TAB PO SCH (23:53)
[2021-10-01] MEDS ORDERED: OLANZapine 10 MG/2.1 ML SDV IM STA ×2 (00:19→00:38)
[2021-10-01] MEDS: FOLIC ACID 1 MG TAB PO SCH ×2 (01:00→09:08)
[2021-10-01] MEDS: MAGNESIUM SULFATE / D5W 1 GM/100 ML BAG IV SCH ×2 (01:19→04:31)
--- NOTE | 2021-10-01 02:07 | Critical Care Consultation ---
Date of Consultation October 01, 2021 Assessment & Plan (1) Alcohol withdrawal hallucinosis: May be helpful to obtain some history from family related to her ETOH intake Will treat at acute alcohol withdrawal, acute intracranial process has been ruled out Drug screen + MDMA - could explain symptoms, though patient denies, short half- life of drug, and patient describes > 1 day of symptoms Continue alcohol withdrawal protocol with PRN benzodiazepine Add low-dose precedex to augment symptom management and reduce benzodiazepine requirements, caution given high risk for QTc prolongation - monitor via tele Continue thiamine, MVI, folic acid replacement Continue HARNESS BRUSHER Wellbutrin, Buspar, KCl - needs confirmation of Keppra and escitalopram Present on Admission?: Yes (2) Malnutrition: Chronic anorexia with associated alcohol abuse Encourage PO intake later in the morning as condition allows (3) Electrolyte disturbance: Chronic, likely related to nutritional status + ETOHism Continue to replete as needed, aggressively replace K and Mg now Other: DVT PPX SCDs Diet NPO except meds, advance as tolerated SUP N/A PT/OT evaluation as indicated Recommend alcohol cessation therapy/rehabilitation Consider psychological evaluation once clinically feasible Plan Ms. Vilma Falcon is a 41YO F admitted due to acute encephalopathy with jose lucinations in the setting of likely alcohol withdrawal syndrome. Standard management of AMIE with nutritional supplementation, hydration, electrolyte repletion, and pharmacologic treatment of manifestations. Thank you for the consultation. We will continue to follow with you. History of Present Illness Reason for Consultation: Alcohol Withdrawal, moderate Requesting Physician: Candace Attending Physician: Nic Maria MD History of Present Illness Ms. Vilma Falcon is a 41YO F with a history of PTSD, convulsive syncope, ETOHism (last drink 5d ago vs 2-3wks), chronic electrolyte derangements, malnutrition, and palpitations who presented to [facility] ED on 09/30/2021 due to hallucinations. Per report, patient describes auditory and visual hallucinations starting 09/29/2021 evening. Patient has multiple year history of alcohol use disorder though denies complications in the past. She has given multiple answers concerning her last alcoholic drink ranging from days to weeks. Her ethanol level is negative on admission. MDMA ?false positive in the setting of chronic burpropion use. CTH negative. She received a total of 6mg Ativan and 5mg Zyprexa per APR. Last dose > 1 hour prior to my evaluation. Has IVF continuously in addition to K and Mg replacement. Our team was asked to evaluate for admission to ICU due to alcohol withdrawal. I evaluated the patient in ED A8. Security officers and 2RNs were present due to episode of agitation and attempting to rise from bed. Despite multiple attempts to orient the patient, she is unable to retain any of the information. She did eventually calm down with coaxing. She is oriented only to person, tangential in speech. She denies current complaints including 10-point ROS. Would like to get up and make a bologna sandwich. Allergies Allergy/AdvReac Type Severity Reaction Status Date / Time No Known Allergies Allergy Verified 05/29/20 21:03 Home Medications Medication Instructions Recorded Confirmed Type melatonin 5 mg capsule 5 mg PO PM PRN Sleep 05/11/20 09/30/21 History buspirone 7.5 mg tablet 7.5 mg PO DAILY 05/29/20 09/30/21 History potassium chloride 20 mEq 20 meq PO QAM 05/29/20 09/30/21 History tablet,extended release bupropion HCl 150 mg 24 hr tablet, 150 mg PO DAILY 09/30/21 09/30/21 History extended release escitalopram oxalate 20 mg tablet 20 mg PO DAILY 09/30/21 09/30/21 History levetiracetam 250 mg tablet 250 mg PO BID 09/30/21 09/30/21 History Patient History Medical History (Updated 10/01/21 @ 02:22 by Teresa Dixon PA-C) Alcohol dependence Anorexia Family history unobtainable No significant past medical history PTSD (post-traumatic stress disorder) Surgical History (Updated 09/30/21 @ 21:58 by Kerry Padron PA-C) No significant past surgical history Surgical history unknown Family History (Updated 09/30/21 @ 21:58 by Kerry Padron PA-C) Other Family history non-contributory Social History Smoking Status: Never smoker Second Hand Exposure: No; Hx Alcohol Use: Yes Alcohol type: beer Hx Substance Use: No Preferred Language: Slovenian Communication Ability: Effective Associate Professor Of Music Required: No Beliefs That Will Affect Care: None marital status: Current Living Situation: Family Current Living Situation Comment: along with children current occupational status: employed Feels Safe at Home: Yes Safety Concerns: Feels Safe At This Time Assistive Devices: Glasses Review of Systems Review of Systems: See HPI Physical Exam Constitutional: + thin and + altered mental status Eyes: PERRL, conjunctivae normal, anicteric sclerae ENMT: Patient not cooperative with this portion of exam Neck: trachea midline, no thyromegaly Respiratory: normal respiratory effort Auscultation: lungs clear to auscultation bilaterally Cardiovascular: Rate/Rhythm: regular rate and regular rhythm Heart Sounds: normal S1 and normal S2; no murmur Gastrointestinal (Abdomen): normal bowel sounds, soft, nontender, no hepatosplenomegaly Musculoskeletal: no cyanosis or clubbing, extremities motor strength 5/5 Neurologic: moves all extremities and + confused; no focal motor deficits Psychiatric: Apperance: + did not appear stated age Eye Contact: + poor eye contact Speech: + pressured speech Affect: + anxious affect Thought Process: + tangential thought process Hallucinations: + auditory hallucinations and + visual hallucinations Results & Data Results & Data ([facility]) Vital Signs (Past 12 Hours) Vital Signs Temp Pulse Pulse Resp BP Pulse Ox Pulse Ox 09/30/21 23:53 99 10/01/21 01:00 92 H 20 121/86 100 09/30/21 23:00 36.5 C 105 H 22 111/74 97 09/30/21 21:00 102 H 18 97/70 L 99 09/30/21 19:13 108 H 19 128/89 99 09/30/21 17:50 128 H 24 99 09/30/21 18:19 37 C 128 H 24 158/104 H 99 O2 Del Method O2 Del Method 09/30/21 23:53 Room Air 10/01/21 01:00 09/30/21 23:00 09/30/21 21:00 Room Air 09/30/21 19:13 Room Air 09/30/21 17:50 Room Air 09/30/21 18:19 Room Air Medications Administered 6mg Ativan 5mg Zyprexa Coding Level of Care Code 35277 Inpt Consult Level 1 Diagnoses Alcohol withdrawal hallucinosis F10.932 Malnutrition E46 Electrolyte disturbance E87.8 Time Spent (min) 35
[2021-10-01] MEDS ORDERED: STAT IV Infusion **Titration per Protocol STA ×2 (03:13→12:38)
[2021-10-01] MEDS ORDERED: dexMEDEtomidine 200 MCG/50 ML BAG IV SCH (03:15)
[2021-10-01] MEDS: LORazepam 2 MG in SYRINGE 1 ML IV PRN ×3 (04:03→13:03)
[2021-10-01] MEDS ORDERED: LACTATED RINGER'S 1,000 ML IV ONE ×2 (05:16→10:12)
[2021-10-01 06:20] LABS: Basophils # (auto) 0.01 K/uL (0-0.2); Basophils % (auto) 0.3 %; Eosinophils # (auto) 0.08 K/uL (0-0.50); Eosinophils % (auto) 2.5 %; Hematocrit (blood only) 29.8 % (34.1-44.9); Immature Granulocytes # (auto) 0.01 K/uL (0.00-0.02); Immature Granulocytes % (auto) 0.3 %; Lymphocytes # (auto) 1.06 K/uL (1.2-3.4); Lymphocytes % (auto) 32.7 %; Mean Platelet Volume 9.7 fL (9.4-12.3); Monocytes # (auto) 0.39 K/uL (0.24-0.82); Neutrophils # (auto) 1.69 K/uL (1.4-6.5); Neutrophils % (auto) 52.2 %; Platelet Count 107 K/uL (130-400); White Blood Count 3.24 K/ul (4.8-10.8)
[2021-10-01 06:49] LABS: Albumin Globulin Ratio 1.6 (0.9-2); Albumin Level 3.4 gm/dl (3.4-5.0); BUN Creatinine Ratio 25.9 (10-20); Bilirubin,Total 0.8 mg/dl (0.2-1.0); Calcium 8.2 mg/dl (8.5-10.1); Creatinine Clr Calc Pharmacy 117.2 ml/min; Est GFR (African American) 136.8 ml/min; Globulin 2.1 gm/dl (2.5-4.0); Magnesium 2.4 mg/dl (1.7-2.4); Total Protein 5.5 gm/dl (6.0-8.3)
[2021-10-01 07:11] LABS: Folate (Folic Acid) > 22.30 ng/ml (>5.38)
[2021-10-01 07:12] LABS: Mean Corpuscular Hemoglobin 32.6 pg (25.0-34.0); Mean Corpuscular Hgb Conc 33.6 g/dL (32.0-36.0); Mean Corpuscular Volume 97.1 fL (80.0-100.0); RDW Coefficient of Variation 14.7 % (11.5-14.5); RDW Standard Deviation 51.9 fL (36.4-46.3); Red Blood Count 3.07 M/uL (3.93-5.22); Vitamin B12 307 pg/ml (180-914)
[2021-10-01] MEDS ORDERED: ALBUMIN 5% 250 ML IV ONE (08:30)
[2021-10-01] MEDS ORDERED: busPIRone 7.5 MG TAB PO SCH (09:00)
[2021-10-01] MEDS ORDERED: buPROPion XL 150 MG TABCR PO SCH (09:00)
[2021-10-01] MEDS: cefTRIAXone SODIUM 2,000 MG in DEXTROSE 5% 50 ML IV SCH (09:07)
[2021-10-01] MEDS: THIAMINE HCL 500 MG in SODIUM CHLORIDE 0.9% 50 ML IV SCH ×3 (09:07→23:05)
[2021-10-01] MEDS: POTASSIUM CHLORIDE CRTAB 20 MEQ TABCR PO SCH (09:08)
[2021-10-01] MEDS: levETIRAcetam 250 MG TAB PO SCH ×2 (09:08→20:41)
--- NOTE | 2021-10-01 09:11 | Communication Note ---
Date of Service: October 01, 2021 liaison attempted to see patient but she is currently sedated. When she is more awake she is actively hallucinating/restless per nursing. Patient being treated for presumed alcohol withdrawal hallucinosis. Unusual presentation s/p syncopal episode with AMS in May. Has since been started on Keppra. Standing psych meds of Wellbutrin, Lexapro (patient reported non compliance), Buspar held. Patient's positive test for MDMA likely Wellbutrin cross reactivity. I would avoid restarting Wellbutrin given electrolyte disturbances, possible seizure and ED hx. cannot exclude serotonin syndrome, ingestion, etc. but would presumptively treatment for alcohol withdrawal, may rx for agitation/fox related to alcohol withdrawal is benzodiazepines. If aggressive despite benzos, Haldol could also be given IV for breakthrough. Deferring rx to critical care as currently on percedex drip. full consult to follow when patient more alert/able. In meantime will attempt collateral. Dr. Mclaughlin to assume clinical responsibility for consult service on 10/02/21 at 8 am.
[2021-10-01 11:22] LABS: BUN Creatinine Ratio 19.7 (10-20); Calcium 7.9 mg/dl (8.5-10.1); Creatinine Clr Calc Pharmacy 95.9 ml/min; Est GFR (African American) 128.1 ml/min; Est GFR (Non-African American) 110.5 ml/min; Magnesium 1.6 mg/dl (1.7-2.4); Phosphorus 2.4 mg/dl (2.5-4.9); Potassium 3.4 mmol/L (3.5-5.1)
[2021-10-01] MEDS: D5W AND 1/2NSS + 20MEQ KCL 20 MEQ/1,000 ML BAG IV SCH ×2 (12:03→23:04)
[2021-10-01] MEDS: dexMEDEtomidine 200 MCG/50 ML BAG IV SCH ×2 (12:45→18:59)
--- NOTE | 2021-10-01 15:36 | Hospitalist Progress Note ---
Date of Service October 01, 2021 Assessment & Plan (1) Alcohol withdrawal hallucinosis: Plan: Parents reportedly coming in later - hopefully can get collateral history at that time. Will treat at acute alcohol withdrawal, acute intracranial process has been ruled out. Drug screen - MDMA +ve - ?false positive due to Wellbutrin, pt denied illicit drug use on admission Continue alcohol withdrawal protocol with PRN benzodiazepine Precedex being managed by ICU team Continue thiamine 500mg q8h IV, MVI, folic acid replacement (2) Malnutrition: Plan: Chronic anorexia with associated alcohol abuse Encourage PO intake if she becomes more awake (3) Electrolyte disturbance: Plan: Mg, K replacement per ICU protocol (4) Seizure: Plan: Keppra level pending. Continue Keppra 250mg IV BID - this has been longstanding per outside pharmacy med list at least since 2020. Suspect alcohol withdrawal seizures. (5) PTSD (post-traumatic stress disorder): Plan: Hold Wellbutrin due to increased risk of seizures. BuSpar last prescribed in May therefore she is not taking this regularly. Lexapro appears to be more consistently prescribed (last picked up in August) - however per H&P she is reportedly not taking this consistently. Plan VTE Prophylaxis - Lovenox 40mg SQ daily Diet NPO except meds, advance as tolerated Recommend alcohol cessation therapy/rehabilitation Disposition - continue ICU stay due to Precedex Admission and Anticipated Discharge Date Admission Date: September 30, 2021 Subjective Unable to obtain any history from the patient. Currently receiving Precedex and Ativan for alcohol withdrawal. Reportedly able to take sips of water earlier in the day but still having sigfnicant hallucinations. Review of Systems Review of Systems: Unobtainable due to reduced consciousness Physical Exam Constitutional: + thin, + altered mental status and + lethargic; + not well nourished and no acute distress Eyes: PERRL (minimally reactive but equal pupils, difficult exam due to pt compliance) ENMT: Mouth: + dry oral mucous membranes Neck: trachea midline, no thyromegaly Respiratory: normal respiratory effort; no respiratory distress Auscultation: lungs clear to auscultation bilaterally Cardiovascular: RRR, no murmur, no edema Gastrointestinal (Abdomen): normal bowel sounds, soft, nontender, no hepatosplenomegaly Skin: no rashes, warm and dry Neurologic: + not awake (grimaces to voice, not following commands) Psychiatric: Orientation: + not alert and + not oriented x 3 Results & Data Results & [facility] ([facility]) Vital Signs (Past 12 Hours) Vital Signs Pulse Resp BP Pulse Ox O2 Del Method 10/01/21 12:00 89 42 H 96 10/01/21 12:00 88/64 L 10/01/21 11:41 82/62 L 10/01/21 11:41 106 H 26 H 85 L 10/01/21 11:30 94 H 34 H 95 10/01/21 11:30 90/59 L 10/01/21 11:20 95/44 L 10/01/21 11:20 96 H 36 H 91 10/01/21 11:10 84/52 L 10/01/21 11:10 93 H 17 96 10/01/21 11:00 94 H 24 91 10/01/21 10:51 86 23 83 L 10/01/21 10:51 77/53 L 10/01/21 10:30 91 H 27 H 94 10/01/21 10:30 94/63 L 10/01/21 11:12 84 10/01/21 10:21 84 35 H 91 10/01/21 10:21 92/59 L 10/01/21 10:20 78/51 L 10/01/21 10:20 86 22 93 10/01/21 10:11 81/39 L 10/01/21 10:11 82 19 95 10/01/21 10:00 79 31 H 88 L 10/01/21 10:00 93/68 L 10/01/21 09:51 88/25 L 10/01/21 09:51 79 31 H 79 L 10/01/21 09:33 79 24 69 L 10/01/21 09:33 91/61 L 10/01/21 09:30 83 27 H 86 L 10/01/21 09:30 78/53 L 10/01/21 09:21 78 26 H 100 10/01/21 09:21 88/30 L 10/01/21 09:10 96/53 L 10/01/21 09:10 75 25 H 80 L 10/01/21 09:00 79 18 96 10/01/21 08:31 82/57 L 10/01/21 08:31 72 21 92 10/01/21 08:30 67 23 95 10/01/21 08:30 66/44 L 10/01/21 08:20 84/57 L 10/01/21 08:20 85 26 H 94 10/01/21 08:10 82/58 L 10/01/21 08:10 71 19 96 10/01/21 08:04 97/65 L 10/01/21 08:04 85 25 H 96 10/01/21 08:02 74 26 H 97 10/01/21 08:02 79/53 L 10/01/21 08:00 75 27 H 96 10/01/21 08:00 77/54 L 10/01/21 07:50 82/57 L 10/01/21 07:50 70 24 95 10/01/21 07:43 98/74 L 10/01/21 07:43 78 22 94 10/01/21 07:40 68/45 L 10/01/21 07:40 71 22 93 10/01/21 07:34 91 H 18 82 L 10/01/21 07:34 95/62 L 10/01/21 07:32 70/43 L 10/01/21 07:32 73 26 H 94 10/01/21 07:30 84 32 H 92 10/01/21 07:30 71/44 L 10/01/21 07:20 87/56 L 10/01/21 07:20 86 26 H 93 10/01/21 07:00 72 24 94 10/01/21 07:00 86/52 L 10/01/21 06:45 65 22 93 10/01/21 08:00 61 10/01/21 06:20 61 20 104/79 94 10/01/21 06:14 97 H 0 L 148/98 H 82 L 10/01/21 06:00 71 24 86/49 L 93 10/01/21 05:50 71 24 94 10/01/21 05:50 86/49 L 10/01/21 05:47 84/49 L 10/01/21 05:47 68 25 H 92 10/01/21 05:41 81/50 L 10/01/21 05:41 68 23 94 10/01/21 05:40 67 23 96 10/01/21 05:40 78/53 L 10/01/21 05:30 89/49 L 08/20/22 05:30 70 23 96 10/01/21 05:20 70/48 L 10/01/21 05:20 68 23 97 10/01/21 05:18 70 23 96 10/01/21 05:16 78/52 L 10/01/21 05:16 75 25 H 94 10/01/21 05:15 68 23 10/01/21 05:04 81/43 L 10/01/21 05:04 70 21 99 10/01/21 05:03 71 21 96 10/01/21 05:03 80/47 L 10/01/21 05:01 79/51 L 10/01/21 05:01 69 24 99 10/01/21 05:00 63 16 98 10/01/21 05:00 77/50 L 10/01/21 04:45 71 24 98 10/01/21 04:30 75 24 98 10/01/21 04:15 77 24 97 10/01/21 04:00 82 26 H 92/66 L 97 Room Air PG Care Time/CCT Total # of Minutes Spent Total Time Spent with Patient: Total time spent is greater than 50% in coordination of care (as documented) at patient's floor/unit and/or counseling patient: Coding Level of Care Code 31198 Subseq Hosp Care Lvl 3 Diagnoses Alcohol withdrawal hallucinosis F10.932 Malnutrition E46 Electrolyte disturbance E87.8 Seizure R56.9 PTSD (post-traumatic stress disorder) F43.10
--- NOTE | 2021-10-01 17:45 | XRay Report ---
SINGLE VIEW CHEST CLINICAL HISTORY: Tachypnea FINDINGS: An AP, portable, semierect chest radiograph is compared to study dated 05/29/2020. The cardi omediastinal silhouette is unremarkable. Airspace consolidation is seen at the left lung base. The ri ght lung appears clear. No large pleural effusion is identified. No pneumothorax is seen. The bony th orax is grossly intact. IMPRESSION: Airspace consolidation is seen at the left lung base. Correlate clinically for evidence o f pneumonia/aspiration pneumonitis. Radiographic follow-up to resolution is recommended. ACT 112: Negative or not required by law. Electronically signed by: Ulisses Santana M.D. 10/01/2021 5:44 PM
[2021-10-01] MEDS ORDERED: NORMOSOL-R 1,000 ML IV ONE (20:03)
--- NOTE | 2021-10-01 20:25 | Billing Data ---
Date of Service October 01, 2021 Coding Level of Care Code Critical Care 1st - mins
--- NOTE | 2021-10-01 22:31 | Electrocardiogram Report ---
Test Reason : Blood Pressure : / mmHG Vent. Rate : 118 BPM Atrial Rate : 118 BPM P-R Int : 132 ms QRS Dur : 056 ms QT Int : 348 ms P-R-T Axes : 072 063 083 degrees QTc Int : 487 ms Poor data quality, interpretation may be adversely affected Sinus tachycardia Septal infarct (cited on or before 30-SEP-2021) Prolonged QT Abnormal ECG When compared with ECG of 30-MAY-2020 11:00, Septal infarct is now Present QT has lengthened Confirmed by Isidoro Diaz ([id number]) on 10/01/2021 10:30:53 PM Referred By: REFERRED SELF Confirmed By:Isidoro Diaz
[2021-10-02] MEDS: LORazepam 1 MG in SYRINGE 0.5 ML IV PRN ×2 (03:03→21:24)
[2021-10-02 04:37] LABS: Basophils # (auto) 0.02 K/uL (0-0.2); Basophils % (auto) 0.4 %; Eosinophils # (auto) 0.02 K/uL (0-0.50); Eosinophils % (auto) 0.4 %; Hematocrit (blood only) 28.1 % (34.1-44.9); Hemoglobin 9.4 g/dl (12.0-16.0); Immature Granulocytes # (auto) 0.01 K/uL (0.00-0.02); Immature Granulocytes % (auto) 0.2 %; Lymphocytes # (auto) 0.66 K/uL (1.2-3.4); Lymphocytes % (auto) 12.4 %; Mean Corpuscular Hemoglobin 32.9 pg (25.0-34.0); Mean Corpuscular Hgb Conc 33.5 g/dL (32.0-36.0); Mean Corpuscular Volume 98.3 fL (80.0-100.0); Mean Platelet Volume 10.6 fL (9.4-12.3); Monocytes % (auto) 7.5 %; Neutrophils # (auto) 4.23 K/uL (1.4-6.5); Neutrophils % (auto) 79.1 %; Platelet Count 116 K/uL (130-400); RDW Coefficient of Variation 15.5 % (11.5-14.5); RDW Standard Deviation 55.8 fL (36.4-46.3); Red Blood Count 2.86 M/uL (3.93-5.22); White Blood Count 5.34 K/ul (4.8-10.8)
[2021-10-02 04:59] LABS: Albumin Globulin Ratio 1.5 (0.9-2); Albumin Level 3.2 gm/dl (3.4-5.0); BUN Creatinine Ratio 8.1 (10-20); Bilirubin,Total 0.6 mg/dl (0.2-1.0); Calcium 7.5 mg/dl (8.5-10.1); Creatinine Clr Calc Pharmacy 102.1 ml/min; Est GFR (African American) 130.7 ml/min; Est GFR (Non-African American) 112.8 ml/min; Globulin 2.1 gm/dl (2.5-4.0); Magnesium 1.6 mg/dl (1.7-2.4); Potassium 3.3 mmol/L (3.5-5.1); Total Protein 5.3 gm/dl (6.0-8.3)
[2021-10-02] MEDS ORDERED: POTASSIUM PHOS 3 MMOL/1 ML INFUSION IV STA (07:54)
[2021-10-02] MEDS: THIAMINE HCL 500 MG in SODIUM CHLORIDE 0.9% 50 ML IV SCH ×3 (07:59→23:58)
[2021-10-02] MEDS: cefTRIAXone SODIUM 2,000 MG in DEXTROSE 5% 50 ML IV SCH (07:59)
[2021-10-02] MEDS: D5W AND 1/2NSS + 20MEQ KCL 20 MEQ/1,000 ML BAG IV SCH (07:59)
[2021-10-02] MEDS: POTASSIUM CHLORIDE CRTAB 20 MEQ TABCR PO SCH (08:07)
[2021-10-02] MEDS: FOLIC ACID 1 MG TAB PO SCH (08:07)
[2021-10-02] MEDS: levETIRAcetam 250 MG TAB PO SCH ×2 (08:07→20:34)
[2021-10-02] MEDS: dexMEDEtomidine 200 MCG/50 ML BAG IV SCH (08:11)
[2021-10-02] MEDS ORDERED: POTASSIUM PHOSPHATE 30 MMOL in DEXTROSE 5% 500 ML IV ONE (08:15)
--- NOTE | 2021-10-02 08:58 | Critical Care Progress Note ---
Date of Service October 02, 2021 Assessment & Plan (1) Alcohol withdrawal hallucinosis: Plan: Improving significantly. Continue alcohol withdrawal protocol. Continue high- dose thiamine for 3 days. MDMA positive on admission. Discontinue Haldol as this can lower the seizure threshold. Continue one-to-one sitter for the time being. Advance diet as tolerated. (2) Electrolyte disturbance: Plan: Replacing potassium, phosphorus and magnesium aggressively. Likely due to chronic alcohol ingestion. (3) Hypotension: Plan: Resolved. Likely secondary to sepsis. Continue Rocephin. (4) Sepsis: Plan: Urine culture unremarkable. Continue Rocephin empirically. (5) Transaminitis: Plan: Likely combination of alcohol hepatitis and ischemic hepatitis due to hypotension. Will trend labs. Acetaminophen level negative on admission. Obtain hepatitis labs. Plan Stable for downgrade to med telemetry or PCU status. Discussed with hospitalist and bedside nurse. Admission and Anticipated Discharge Date Admission Date: September 30, 2021 Subjective Patient much more awake and alert today. Less tremulous. Endorses good appetite and is eager to eat. No chest pain. Dizziness improved. Review of Systems Review of Systems: All systems reviewed & are unremarkable except as noted in HPI & below Physical Exam Physical Exam: Constitutional: Patient appears to be of their stated age. Patient is in no apparent distress. Patient is well-developed. Eyes: Pupils are equal round and reactive to light. Conjunctivae are normal. Anicteric sclera. Ears nose, mouth and throat: Deferred. Neck: Trachea is midline. Visual inspection is normal. Respiratory: Mild crackles at the bases bilaterally. Cardiovascular: Regular rate and rhythm. No murmurs. No edema. Gastrointestinal: Normal bowel sounds, soft, nontender and nondistended. No hepatosplenomegaly noted. Musculoskeletal: No cyanosis. Patient is able to move all extremities. Skin: No rashes, warm dry and intact. Neurologic: No obvious focal neurological deficits seen. Psychiatric: Alert and oriented x3 with a euthymic affect. Results & Data Results & Data ([facility]) Vital Signs (Past 12 Hours) Vital Signs Temp Pulse Resp BP Pulse Ox O2 Del Method 10/02/21 06:00 87 27 H 120/76 93 Room Air 10/02/21 05:00 82 27 H 140/87 93 Room Air 10/02/21 04:00 94 H 23 115/77 92 Room Air 10/02/21 04:00 37.6 C H 10/02/21 03:00 89 31 H 124/83 92 Room Air 10/02/21 02:30 86 17 113/74 94 10/02/21 01:00 89 34 H 91/63 L 92 Room Air 10/02/21 00:00 90 30 H 102/71 92 Room Air 10/02/21 00:00 79/49 L 10/01/21 23:00 92 H 34 H 101/74 89 L 10/02/21 00:25 37.2 C 10/01/21 22:00 94 H 34 H 90/67 L 93 Room Air 10/01/21 21:00 106/75 Coding Level of Care Code 36525 Subseq Hosp Care Lvl 3 Diagnoses Alcohol withdrawal hallucinosis F10.932 Electrolyte disturbance E87.8 Hypotension I95.9 Sepsis A41.9 Transaminitis R74.01
[2021-10-02] MEDS: MAGNESIUM SULFATE / D5W 1 GM/100 ML BAG IV SCH ×2 (10:45→12:02)
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
[2021-10-02] MEDS ORDERED: FAMOTIDINE 20 MG in SYRINGE 3 ML IV SCH (12:00)
[2021-10-02] MEDS: CYANOCOBALAMIN (B-12) 500 MCG TABLET PO SCH (12:32)
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
[2021-10-03 04:47] LABS: Basophils # (auto) 0.02 K/uL (0-0.2); Basophils % (auto) 0.3 %; Eosinophils # (auto) 0.04 K/uL (0-0.50); Eosinophils % (auto) 0.7 %; Hemoglobin 10.1 g/dl (12.0-16.0); Immature Granulocytes # (auto) 0.03 K/uL (0.00-0.02); Immature Granulocytes % (auto) 0.5 %; Lymphocytes # (auto) 0.75 K/uL (1.2-3.4); Lymphocytes % (auto) 12.4 %; Mean Corpuscular Hemoglobin 32.9 pg (25.0-34.0); Mean Corpuscular Hgb Conc 33.7 g/dL (32.0-36.0); Mean Corpuscular Volume 97.7 fL (80.0-100.0); Mean Platelet Volume 9.9 fL (9.4-12.3); Monocytes # (auto) 0.71 K/uL (0.24-0.82); Monocytes % (auto) 11.8 %; Neutrophils # (auto) 4.49 K/uL (1.4-6.5); Neutrophils % (auto) 74.3 %; Platelet Count 153 K/uL (130-400); RDW Coefficient of Variation 15.1 % (11.5-14.5); RDW Standard Deviation 54.4 fL (36.4-46.3); Red Blood Count 3.07 M/uL (3.93-5.22); White Blood Count 6.04 K/ul (4.8-10.8)
[2021-10-03 05:27] LABS: Albumin Globulin Ratio 1.4 (0.9-2); Albumin Level 3.8 gm/dl (3.4-5.0); BUN Creatinine Ratio 6.3 (10-20); Bilirubin,Total 0.6 mg/dl (0.2-1.0); Calcium 8.7 mg/dl (8.5-10.1); Est GFR (African American) 106.9 ml/min; Est GFR (Non-African American) 92.2 ml/min; Globulin 2.7 gm/dl (2.5-4.0); Phosphorus 3.6 mg/dl (2.5-4.9); Potassium 3.7 mmol/L (3.5-5.1); Total Protein 6.5 gm/dl (6.0-8.3)
[2021-10-03] MEDS: THIAMINE HCL 500 MG in SODIUM CHLORIDE 0.9% 50 ML IV SCH (08:05)
[2021-10-03] MEDS: CYANOCOBALAMIN (B-12) 500 MCG TABLET PO SCH (08:12)
[2021-10-03] MEDS: FOLIC ACID 1 MG TAB PO SCH (08:12)
[2021-10-03] MEDS: levETIRAcetam 250 MG TAB PO SCH (08:12)
[2021-10-03] MEDS: POTASSIUM CHLORIDE CRTAB 20 MEQ TABCR PO SCH (08:14)
[2021-10-03] MEDS ORDERED: FAMOTIDINE 20 MG TAB PO SCH (09:45)
[2021-10-03] MEDS ORDERED: AMOXICILLIN/CLAVULANATE 875 MG TAB PO ONE (13:00)
[2021-10-03] MEDS ORDERED: AZITHROMYCIN 250 MG TAB PO ONE (13:00)
--- NOTE | 2021-10-03 13:39 | XRay Report ---
TWO VIEW CHEST CLINICAL HISTORY: Left lower lobe consolidation. FINDINGS: PA and lateral chest radiographs are compared to study dated 10/01/2021. The cardiomediastin al silhouette is unremarkable. There are mild residual airspace opacities at the left lung base. Thes e have partially cleared from previous. Mild airspace opacities are now seen at the right lung base. No pleural effusion is seen. There is no pneumothorax. There subacute appearing right anterior rib fr acture. IMPRESSION: 1. There are numerous subacute appearing right anterior rib fractures. Clinical correlation will be r equired. 2. Airspace opacities at the left lung base have partially cleared from previous. New airspace opacit ies are seen in the subpleural right lower lobe. Correlate clinically for evidence of an infectious/i nflammatory pneumonitis. Radiographic follow-up to resolution is recommended. ACT 112: Negative or not required by law. Electronically signed by: Ulisses Santana M.D. 10/03/2021 1:38 PM
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
[2021-10-04 11:57] LABS: HBSAG NON-REACTIVE (NON-REACTIVE); Hepatitis A Antibody IgM NON-REACTIVE (NON-REACTIVE); Hepatitis B Core Antibody IgM NON-REACTIVE (NON-REACTIVE)
[2021-10-07 13:21] LABS: MDA negative; MDEA negative; MDMA (Ecstasy) Urine, Confirm negative
== END 2021-10-03 14:35 | disposition home or self-care (01) | DRG 896 ==
LOC: ED 16:38 → EDINP 21:12 → SUATTDRO 21:12 → 1E 10-01 00:06

== ENCOUNTER 2022-04-03 08:36 | Inpatient (IN) ==
[2022-04-03] MEDS ORDERED: PROMETHAZINE 12.5 MG/50.5 ML BAG IV STA (08:46)
[2022-04-03] MEDS ORDERED: ONDANSETRON INJ 2 MG/ML 2 ML VIAL IV STA (08:46)
[2022-04-03] MEDS ORDERED: LORazepam 2 MG/1 ML VIAL IV STA (08:46)
[2022-04-03] MEDS ORDERED: MULTI-VITAMIN INFUSION 10 ML, THIAMINE HCL 100 MG, FOLIC ACID 1 MG in SODIUM CHLORIDE 0... IV ONE (08:46)
[2022-04-03] MEDS ORDERED: levETIRAcetam 1,000 MG in 0.9 % SODIUM CHLORIDE 100 ML IV STA (08:59)
--- NOTE | 2022-04-03 08:59 | Emergency Department Note ---
Impression & Plan Vomiting, Hypomagnesemia, Acute dehydration, Tachycardia, Tremor, Acute electrocardiogram changes ED Provider Note NAME: FARZANEH NOEL AGE: 41 SEX: F : 1980 ARRIVES VIA: Walk-In INFORMANT: [Patient][family] ED PROVIDER(S): [Ulisses Lopez MD] CHIEF COMPLAINT: Vomiting, illness HISTORY OF PRESENT ILLNESS: The patient is a 41-year-old female with a history of alcohol abuse and seizure disorder. She states that she went to urgent care last week and was placed on doxycycline. She was placed on this medication because a tick was found on her. 4 days ago, she started the doxycycline and has not felt well since. She has lost her appetite. Yesterday, she began vomiting and started to feel weak and dizzy and shaky. She has not had a seizure to her knowledge. Today, she feels just as bad, she is thirsty and feels that she is likely dehydrated. She is very shaky and very weak. She thinks she is having a reaction to the doxycycline. She denies any chest pain, urinary burning or diarrhea. He has not had fever, chills, cough or congestion. PMHx/PSHx: See Below SOCIAL HISTORY: See Below. PHYSICAL EXAM: GENERAL: Patient is in mild distress, shaking, seems anxious. HEENT: No acute trauma, normocephalic atraumatic, mucous membranes dry, no nasal congestion. NECK: No stridor, no adenopathy, no meningismus, trachea is midline. LUNGS: Clear to auscultation bilaterally, no wheeze, no rhonchi, breath sounds equal. HEART: Tachycardic, regular rhythm, no murmurs. ABDOMEN: Soft, nontender, bowel sounds positive, no peritonitis. EXTREMITIES: No cyanosis or edema, full range of motion of all the joints without pain or difficulty, no signs for acute trauma. NEUROLOGIC: Oriented x 3, no acute motor or sensory deficits, no focal weakness. Shaking with extremity tremor noted. SKIN: No rash, no jaundice, no diaphoresis. DIFFERENTIAL DIAGNOSIS: Dehydration, electrolyte imbalance, medication reaction, renal failure, seizure, alcohol withdrawal, rhabdomyolysis, infection, among others. EMERGENCY DEPARTMENT COURSE/PROCEDURES: Prior/Outside records reviewed: Previous discharge summary. ECG per my interpretation: Indication was weakness and tachycardia. The ECG shows a sinus tachycardia with a short MN. The rate is 119. There are inverted T waves noted diffusely throughout the inferior, anterior and lateral leads. There is no ST elevation. QTc is 478. Compared to an ECG from 30 September 2021, the T wave inversions appear new. Continuous Cardiac Monitoring per my interpretation: An order was placed for continuous cardiac monitoring. The monitor shows a rate of 132 with sinus tachycardia. Critical Care Note: I have personally spent 51 minutes of critical care time in the direct management of this patient. This includes bedside care, interpretation of diagnostic studies, and testing, discussion with consultants, patient, and family members, and other required patient management activities. This 51 minutes is in excess of all separately billable procedures. MEDICAL DECISION MAKING: There is no leukocytosis or concerning anemia. Platelet count was low at 86, this lower platelet count has been documented before. No acute renal failure however, the CO2 was low at 13. Anion gap was elevated at 26. Lactic acid level was elevated consistent with dehydration and/or infection. Magnesium was quite low at 1.1. No liver failure. ECG showed a sinus tachycardia, no ST elevation, T wave inversion was seen. Cardiac enzyme testing x1 is not consistent with acute cardiac injury. Alcohol level was undetectable. Lyme disease testing was negative. COVID, influenza and RSV test were negative. Chest film was clear, no pneumonia or CHF per my review. The patient appeared quite uncomfortable and presents shaking and tachycardic. She was given IV saline, 500 cc. She was given IV saline with multivitamins, thiamine and folate. She received IV calcium gluconate, IV Keppra, IV Ativan, IV magnesium, IV Zofran and IV Phenergan. The patient's heart rate has decreased. She seems to be feeling improved. The cause for the patient's presentation is not completely clear. Certainly, medication reaction is a possibility. I am concerned about the possibility of alcohol withdrawal as she has had issues with alcoholism in the past. With the electrolyte abnormalities, with her presentation and persistent tachycardia, I do think the patient would benefit from a hospital stay and further care/testing. I spoke with the patient, I talked to case management. The on- call hospitalist was consulted. DISPOSITION: The patient's findings and presentation warrant a hospital stay and further work-up. Past Med/Surg History Medical History Alcohol dependence Alcohol use disorder Anorexia Family history unobtainable Hypotension PTSD (post-traumatic stress disorder) Sepsis Transaminitis Surgical History No significant past surgical history Surgical history unknown Family History Other Family history non-contributory Social History Smoking Status: Never smoker Second Hand Exposure: No; Hx Alcohol Use: Yes Alcohol type: beer and hard liquor Hx Substance Use: No Preferred Language: Trinidadian Communication Ability: Effective [employer] [place] [place] [employer] Supervisor Required: No Beliefs That Will Affect Care: None marital status: Current Living Situation: Family Current Living Situation Comment: along with children current occupational status: employed Feels Safe at Home: Yes Assistive Devices: Glasses Allergies Allergies Allergy/AdvReac Type Severity Reaction Status Date / Time No Known Allergies Allergy Verified 05/29/20 21:03 Home Meds Home Medications Medication Instructions Recorded Confirmed melatonin 5 mg capsule 5 mg PO PM PRN Sleep 05/11/20 09/30/21 potassium chloride 20 mEq 20 meq PO QAM 05/29/20 09/30/21 tablet,extended release levetiracetam 250 mg tablet 250 mg PO BID 09/30/21 09/30/21 Previous Rx's Medication Instructions Recorded cyanocobalamin (vitamin B-12) 500 500 mcg PO QAM #30 tabs 10/03/21 mcg tablet folic acid 1 mg tablet 1 mg PO QAM #30 tabs 10/03/21 hydroxyzine HCl 25 mg tablet 25 mg PO Q6H PRN anxiety #20 tabs 10/03/21 thiamine HCl (vitamin B1) 250 mg 250 mg PO DAILY #30 tabs 10/03/21 tablet Results & Data (ED) Vital Signs Vital Signs - 24 hr 04/03/22 08:37 04/03/22 09:14 04/03/22 08:47 Temperature 36.4 C L Temperature Source Temporal Artery Scan Pulse Rate 138 H 106 H Pulse Rate from SpO2 Sensor Respiratory Rate 24 Respiratory Effort / Characteristics Non-Labored Respiratory Depth Normal Blood Pressure 136/102 H Blood Pressure Mean 113 Pulse Oximetry 99 96 Oxygen Delivery Method Room Air Room Air Sepsis Recent Fever Within 48 Hours No Sepsis New/Unexplained Change in Mental Status N/A Sepsis Action Taken by Nursing No Action Required 04/03/22 09:30 04/03/22 09:30 04/03/22 10:00 Temperature Temperature Source Pulse Rate 100 H Pulse Rate from SpO2 Sensor 105 H Respiratory Rate 19 Respiratory Effort / Characteristics Respiratory Depth Blood Pressure 160/117 H 159/103 H Blood Pressure Mean 131 121 Pulse Oximetry 99 Oxygen Delivery Method Sepsis Recent Fever Within 48 Hours Sepsis New/Unexplained Change in Mental Status Sepsis Action Taken by Nursing 04/03/22 10:00 04/03/22 13:16 Temperature Temperature Source Pulse Rate 103 H 102 H Pulse Rate from SpO2 Sensor Respiratory Rate 18 Respiratory Effort / Characteristics Respiratory Depth Blood Pressure Blood Pressure Mean Pulse Oximetry Oxygen Delivery Method Sepsis Recent Fever Within 48 Hours Sepsis New/Unexplained Change in Mental Status Sepsis Action Taken by Assisted Medications Current Medication List: was personally reviewed by me Laboratory Data Attestation: I reviewed the patient's lab results. 04/03/22 09:19 04/03/22 09:19 Lab Results 04/03/22 04/03/22 04/03/22 Range/Units 09:19 09:19 09:19 WBC (4.8-10.8) K/ul RBC (4.20-5.40) M/uL Hgb (12.0-16.0) g/dl POC Hgb (12.0-16.0) g/dl Hct (37.0-47.0) % POC Hct (37-47) % MCV (80.0-100.0) fL MCH (25.0-34.0) pg MCHC (32.0-36.0) g/dL RDW Std Deviation (36.4-46.3) fL RDW Coeff of Cliff (11.5-14.5) % Plt Count (130-400) K/uL MPV (9.4-12.4) fL Immature Gran % (Auto) % Neut % (Auto) % Lymph % (Auto) % Schley % (Auto) % Eos % (Auto) % Baso % (Auto) % Neut # (Auto) (1.40-6.50) K/uL Lymph # (Auto) (1.2-3.4) K/uL Schley # (Auto) (0.11-0.59) K/uL Eos # (Auto) (0-0.50) K/uL Baso # (Auto) (0-0.2) K/uL Immature Gran # (Auto) (0.01-0.20) K/uL POC Sodium (135-144) mmol/L Sodium 138 (136-145) mmol/L POC Potassium (3.3-5.0) mmol/L Potassium 3.7 (3.5-5.1) mmol/L POC Chloride (101-112) mmol/L Chloride 99 (98-107) mmol/L Carbon Dioxide 13 L (21-32) mmol/L POC Total CO2 (24-31) mmol/L Anion Gap 26 H (3-11) POC Anion Gap (16-25) mmol/L POC BUN (7-18) mg/dl BUN 18 (6-23) mg/dl Creatinine 0.65 (0.6-1.2) mg/dl POC Creatinine (0.6-1.3) mg/dl Est Cr Clr Drug Dosing Not Reportable Est GFR ( Amer) 128.7 ml/min Est GFR (Non-Af Amer) 111.1 ml/min BUN/Creatinine Ratio 27.7 H (10-20) Glucose 202 H (70-99(Fasting)) mg/dl POC Glucose (other) (70-99) mg/dl Lactate 2.7 H* (0.4-2.0) mmol/L Calcium 9.3 (8.5-10.1) mg/dl POC Ioniz Calcium Raj (1.12-1.32) mmol/l Phosphorus 2.6 (2.5-4.9) mg/dl Magnesium 1.1 L (1.7-2.4) mg/dl Total Bilirubin 0.9 (0.2-1.0) mg/dl AST 38 (13-39) U/L ALT 17 (7-52) U/L Alkaline Phosphatase 55 (34-104) U/L Total Creatine Kinase 78 (26-192) U/L Troponin I High Sens 3.2 (0-14) pg/ml Total Protein 8.3 (6.0-8.3) gm/dl Albumin 4.9 (3.4-5.0) gm/dl Globulin 3.4 (2.5-4.0) gm/dl Albumin/Globulin Ratio 1.4 (0.9-2) TSH (0.300-4.500) uIu/ml Ethyl Alcohol mg/dL < 10.0 (<10.0) mg/dl Lyme Disease IgG Ab (Negative) Lyme Disease IgM Ab (Negative) SARS-CoV-2 (PCR) (Negative) Influenza Type A (PCR) (Neg) Influenza Type B (PCR) (Neg) RSV (RT-PCR) (Neg) 04/03/22 04/03/22 04/03/22 Range/Units 09:19 09:19 09:19 WBC 4.80 (4.8-10.8) K/ul RBC 3.67 L (4.20-5.40) M/uL Hgb 12.2 (12.0-16.0) g/dl POC Hgb (12.0-16.0) g/dl Hct 34.2 L (37.0-47.0) % POC Hct (37-47) % MCV 93.2 (80.0-100.0) fL MCH 33.2 (25.0-34.0) pg MCHC 35.7 (32.0-36.0) g/dL RDW Std Deviation 46.5 H (36.4-46.3) fL RDW Coeff of Cliff 13.5 (11.5-14.5) % Plt Count 86 L (130-400) K/uL MPV 9.6 (9.4-12.4) fL Immature Gran % (Auto) 0.2 % Neut % (Auto) 95.0 % Lymph % (Auto) 2.5 % Schley % (Auto) 2.1 % Eos % (Auto) 0.0 % Baso % (Auto) 0.2 % Neut # (Auto) 4.56 (1.40-6.50) K/uL Lymph # (Auto) 0.12 L (1.2-3.4) K/uL Schley # (Auto) 0.10 L (0.11-0.59) K/uL Eos # (Auto) 0.00 (0-0.50) K/uL Baso # (Auto) 0.01 (0-0.2) K/uL Immature Gran # (Auto) 0.01 (0.01-0.20) K/uL POC Sodium (135-144) mmol/L Sodium (136-145) mmol/L POC Potassium (3.3-5.0) mmol/L Potassium (3.5-5.1) mmol/L POC Chloride (101-112) mmol/L Chloride (98-107) mmol/L Carbon Dioxide (21-32) mmol/L POC Total CO2 (24-31) mmol/L Anion Gap (3-11) POC Anion Gap (16-25) mmol/L POC BUN (7-18) mg/dl BUN (6-23) mg/dl Creatinine (0.6-1.2) mg/dl POC Creatinine (0.6-1.3) mg/dl Est Cr Clr Drug Dosing Est GFR ( Amer) ml/min Est GFR (Non-Af Amer) ml/min BUN/Creatinine Ratio (10-20) Glucose (70-99(Fasting)) mg/dl POC Glucose (other) (70-99) mg/dl Lactate (0.4-2.0) mmol/L Calcium (8.5-10.1) mg/dl POC Ioniz Calcium Raj (1.12-1.32) mmol/l Phosphorus (2.5-4.9) mg/dl Magnesium (1.7-2.4) mg/dl Total Bilirubin (0.2-1.0) mg/dl AST (13-39) U/L ALT (7-52) U/L Alkaline Phosphatase (34-104) U/L Total Creatine Kinase (26-192) U/L Troponin I High Sens (0-14) pg/ml Total Protein (6.0-8.3) gm/dl Albumin (3.4-5.0) gm/dl Globulin (2.5-4.0) gm/dl Albumin/Globulin Ratio (0.9-2) TSH 0.922 (0.300-4.500) uIu/ml Ethyl Alcohol mg/dL (<10.0) mg/dl Lyme Disease IgG Ab Negative (Negative) Lyme Disease IgM Ab Negative (Negative) SARS-CoV-2 (PCR) (Negative) Influenza Type A (PCR) (Neg) Influenza Type B (PCR) (Neg) RSV (RT-PCR) (Neg) 02/20/23 02/20/23 02/20/23 Range/Units 10:02 11:37 11:40 WBC (4.8-10.8) K/ul RBC (4.20-5.40) M/uL Hgb (12.0-16.0) g/dl POC Hgb 11.6 L (12.0-16.0) g/dl Hct (37.0-47.0) % POC Hct 34 L (37-47) % MCV (80.0-100.0) fL MCH (25.0-34.0) pg MCHC (32.0-36.0) g/dL RDW Std Deviation (36.4-46.3) fL RDW Coeff of Cliff (11.5-14.5) % Plt Count (130-400) K/uL MPV (9.4-12.4) fL Immature Gran % (Auto) % Neut % (Auto) % Lymph % (Auto) % Schley % (Auto) % Eos % (Auto) % Baso % (Auto) % Neut # (Auto) (1.40-6.50) K/uL Lymph # (Auto) (1.2-3.4) K/uL Schley # (Auto) (0.11-0.59) K/uL Eos # (Auto) (0-0.50) K/uL Baso # (Auto) (0-0.2) K/uL Immature Gran # (Auto) (0.01-0.20) K/uL POC Sodium 137 (135-144) mmol/L Sodium (136-145) mmol/L POC Potassium 3.7 (3.3-5.0) mmol/L Potassium (3.5-5.1) mmol/L POC Chloride 104 (101-112) mmol/L Chloride (98-107) mmol/L Carbon Dioxide (21-32) mmol/L POC Total CO2 19 L (24-31) mmol/L Anion Gap (3-11) POC Anion Gap 19.0 (16-25) mmol/L POC BUN 15 (7-18) mg/dl BUN (6-23) mg/dl Creatinine (0.6-1.2) mg/dl POC Creatinine 0.5 L (0.6-1.3) mg/dl Est Cr Clr Drug Dosing Est GFR ( Amer) ml/min Est GFR (Non-Af Amer) ml/min BUN/Creatinine Ratio (10-20) Glucose (70-99(Fasting)) mg/dl POC Glucose (other) 134 H (70-99) mg/dl Lactate 1.2 (0.4-2.0) mmol/L Calcium (8.5-10.1) mg/dl POC Ioniz Calcium Raj 0.78 L (1.12-1.32) mmol/l Phosphorus (2.5-4.9) mg/dl Magnesium (1.7-2.4) mg/dl Total Bilirubin (0.2-1.0) mg/dl AST (13-39) U/L ALT (7-52) U/L Alkaline Phosphatase (34-104) U/L Total Creatine Kinase (26-192) U/L Troponin I High Sens (0-14) pg/ml Total Protein (6.0-8.3) gm/dl Albumin (3.4-5.0) gm/dl Globulin (2.5-4.0) gm/dl Albumin/Globulin Ratio (0.9-2) TSH (0.300-4.500) uIu/ml Ethyl Alcohol mg/dL (<10.0) mg/dl Lyme Disease IgG Ab (Negative) Lyme Disease IgM Ab (Negative) SARS-CoV-2 (PCR) NEGATIVE (Negative) Influenza Type A (PCR) Negative (Neg) Influenza Type B (PCR) Negative (Neg) RSV (RT-PCR) Negative (Neg) Administered Medications Magnesium Sulfate/Dextrose (Magnesium Sulfate / D5w) 1 gm in 100 mls @ 100 mls/hr IV Q1H [facility] Stop: 04/03/22 14:59 Last Admin: 04/03/22 14:09 Dose: 100 mls/hr Documented By: Infusion: 04/03/22 14:09 Dose: 0 mls/hr Documented By: Infusion: 04/03/22 14:08 Dose: 0 mls/hr Documented By: Admin: 04/03/22 13:15 Dose: 100 mls/hr Documented By: ERICH Discontinued Medications Sodium Chloride (Nss) 500 mls @ 999 mls/hr IV .Q31M MARITZA Stop: 04/03/22 09:30 Last Infusion: 04/03/22 11:26 Dose: 0 mls/hr Documented By: Admin: 04/03/22 09:27 Dose: 999 mls/hr Documented By: ERICH Promethazine HCl (Phenergan) 12.5 mg in 50.5 mls @ 202 mls/hr IV NOW STA Stop: 04/03/22 09:00 Last Infusion: 04/03/22 10:00 Dose: 0 mls/hr Documented By: Admin: 04/03/22 09:26 Dose: 202 mls/hr Documented By: ERICH Multivitamins 10 ml/ Thiamine HCl 100 mg/ Folic Acid 1 mg/Sodium Chloride 1,011.2 mls @ 1,011.2 mls/hr IV .Q1H ONE Stop: 04/03/22 09:45 Last Infusion: 04/03/22 11:25 Dose: 0 mls/hr Documented By: Admin: 04/03/22 09:25 Dose: 1,011.2 mls/hr Documented By: ERICH Levetiracetam 1,000 mg/ Sodium (Chloride) 110 mls @ 440 mls/hr IV NOW STA Stop: 04/03/22 09:13 Last Infusion: 04/03/22 09:59 Dose: 0 mls/hr Documented By: Admin: 04/03/22 09:26 Dose: 440 mls/hr Documented By: ERICH Calcium Gluconate () 1,000 mg in 60 mls @ 240 mls/hr IV NOW STA Stop: 04/03/22 12:22 Last Infusion: 04/03/22 13:16 Dose: 0 mls/hr Documented By: Admin: 04/03/22 13:01 Dose: 240 mls/hr Documented By: ERICH Lorazepam (Lorazepam 2 Mg/1 Ml Vial) 2 mg IV NOW STA Stop: 04/03/22 08:47 Last Admin: 04/03/22 09:25 Dose: 2 mg Documented By: ERICH Ondansetron HCl (Ondansetron Inj 2 Mg/Ml 2 Ml Vial) 4 mg IV NOW STA Stop: 04/03/22 08:47 Last Admin: 04/03/22 09:25 Dose: 4 mg Documented By: ERICH Imaging Data Radiologist's Impression: Chest X-Ray 04/03/22 08:47 XR chest 1V portable CLINICAL HISTORY: weakness COMPARISON STUDY: Chest radiograph October 03, 2021. FINDINGS: Right ninth rib fracture similar in appearance to radiographs of October 03, 2021. Lung volumes are normal. Lungs are clear. There is no pneumothorax or pleural effusion. Cardiac size is normal. Mediastinal contours are normal. There is no evidence for pulmonary edema. IMPRESSION: No acute cardiopulmonary findings. ACT 112: Negative or not required by law. Electronically signed by: Kartik Chaudhry M.D. 04/03/2022 9:56 AM Discharge Plan Visit Data Chief Complaint: Illness Stated Complaint: THROWING UP, HISTORY OF SEIZURES, TICK BITE ED Provider: Ulisses Lopez Discharge Problem: Vomiting, Hypomagnesemia, Acute dehydration, Tachycardia, Tremor, Acute electro cardiogram changes Patient Disposition: Admitted As Inpatient Condition: Fair Forms Stand Alone Forms: Pending Sale To [facility] Emergency Department, Important Visit Information Prescriptions Prescriptions: No Action melatonin 5 mg capsule 5 mg PO PM PRN (Reason: Sleep) potassium chloride 20 mEq tablet extended release 20 meq PO QAM levetiracetam 250 mg tablet 250 mg PO BID cyanocobalamin (vitamin B-12) 500 mcg Tablet 500 mcg PO QAM Qty: 30 0RF folic acid 1 mg Tablet 1 mg PO QAM Qty: 30 0RF thiamine HCl (vitamin B1) 250 mg tablet 250 mg PO DAILY Qty: 30 0RF hydroxyzine HCl 25 mg tablet 25 mg PO Q6H PRN (Reason: anxiety) Qty: 20 0RF Referrals Referrals: Raul Camejo [Physician] -
[2022-04-03] MEDS ORDERED: SODIUM CHLORIDE 0.9% 500 ML IV SCH (09:00)
--- NOTE | 2022-04-03 09:57 | XRay Report ---
XR chest 1V portable CLINICAL HISTORY: weakness COMPARISON STUDY: Chest radiograph October 03, 2021. FINDINGS: Right ninth rib fracture similar in appearance to radiographs of October 03, 2021. Lung volu mes are normal. Lungs are clear. There is no pneumothorax or pleural effusion. Cardiac size is normal . Mediastinal contours are normal. There is no evidence for pulmonary edema. IMPRESSION: No acute cardiopulmonary findings. ACT 112: Negative or not required by law. Electronically signed by: Kartik Chaudhry M.D. 04/03/2022 9:56 AM
[2022-04-03 10:08] LABS: Hematocrit (blood only) 34.2 % (37.0-47.0); Hemoglobin 12.2 g/dl (12.0-16.0); Mean Corpuscular Hemoglobin 33.2 pg (25.0-34.0); Mean Corpuscular Hgb Conc 35.7 g/dL (32.0-36.0); Mean Corpuscular Volume 93.2 fL (80.0-100.0); Mean Platelet Volume 9.6 fL (9.4-12.4); Platelet Count 86 K/uL (130-400); RDW Coefficient of Variation 13.5 % (11.5-14.5); RDW Standard Deviation 46.5 fL (36.4-46.3); Red Blood Count 3.67 M/uL (4.20-5.40)
[2022-04-03 10:29] LABS: Basophils # (auto) 0.01 K/uL (0-0.2); Basophils % (auto) 0.2 %; Immature Granulocytes # (auto) 0.01 K/uL (0.01-0.20); Immature Granulocytes % (auto) 0.2 %; Lymphocytes # (auto) 0.12 K/uL (1.2-3.4); Lymphocytes % (auto) 2.5 %; Monocytes % (auto) 2.1 %; Neutrophils # (auto) 4.56 K/uL (1.40-6.50)
[2022-04-03 10:35] LABS: Lyme Ab IgG w/WB Rflx Negative (Negative); Lyme Ab IgM w/WB Rflx Negative (Negative)
--- NOTE | 2022-04-03 11:27 | Electrocardiogram Report ---
Test Reason : Blood Pressure : / mmHG Vent. Rate : 119 BPM Atrial Rate : 119 BPM P-R Int : 088 ms QRS Dur : 084 ms QT Int : 340 ms P-R-T Axes : 083 091 -80 degrees QTc Int : 478 ms Sinus tachycardia Rightward axis T wave abnormality, consider inferior ischemia T wave abnormality, consider anterolateral ischemia Abnormal ECG Confirmed by Huey Cavazos ([id number]) on 04/03/2022 11:26:21 AM Referred By: REFERRED SELF Confirmed By:Blake Cavazos
[2022-04-03 11:33] LABS: Troponin I High Sensitivity 3.2 pg/ml (0-14)
[2022-04-03 11:33] LABS: Influenza A virus by PCR Negative (Neg); Influenza B virus by PCR Negative (Neg); RSV by PCR Negative (Neg); SARS CoV2 RNA(COVID-19) Ceph NEGATIVE (Negative)
[2022-04-03 11:56] LABS: iSTAT Creatinine 0.5 mg/dl (0.6-1.3); iSTAT Hemoglobin 11.6 g/dl (12.0-16.0); iSTAT Ionized Calcium 0.78 mmol/l (1.12-1.32); iSTAT Potassium 3.7 mmol/L (3.3-5.0)
[2022-04-03] MEDS ORDERED: CALCIUM GLUCONATE 1,000 MG/60 ML BAG IV STA (12:08)
[2022-04-03 12:52] LABS: Albumin Level 4.9 gm/dl (3.4-5.0); Anion Gap 26 (3-11); Bilirubin,Total 0.9 mg/dl (0.2-1.0); Calcium 9.3 mg/dl (8.5-10.1); Carbon Dioxide 13 mmol/L (21-32); Chloride 99 mmol/L (98-107); Magnesium 1.1 mg/dl (1.7-2.4); Potassium 3.7 mmol/L (3.5-5.1); Sodium 138 mmol/L (136-145)
[2022-04-03 12:58] LABS: Alanine Aminotransferase 17 U/L (7-52); Albumin Globulin Ratio 1.4 (0.9-2); Alkaline Phosphatase 55 U/L (34-104); Aspartate Aminotransferase 38 U/L (13-39); BUN Creatinine Ratio 27.7 (10-20); Blood Urea Nitrogen 18 mg/dl (6-23); Creatine Kinase 78 U/L (26-192); Est GFR (African American) 128.7 ml/min; Est GFR (Non-African American) 111.1 ml/min; Globulin 3.4 gm/dl (2.5-4.0); Glucose 202 mg/dl (70-99(Fasting)); Phosphorus 2.6 mg/dl (2.5-4.9); Total Protein 8.3 gm/dl (6.0-8.3)
[2022-04-03] MEDS: MAGNESIUM SULFATE / D5W 1 GM/100 ML BAG IV SCH ×4 (13:15→20:31)
--- NOTE | 2022-04-03 13:24 | History & Physical Report ---
Date of Service April 03, 2022 Assessment & Plan (1) Alcohol withdrawal: Plan: History of alcohol use disorder with admission last year for alcohol withdrawal hallucinosis, also has a history of seizures in the setting of alcohol withdrawal. Last alcohol use about 3 days ago, with worsening of tremors and anxiety, but without reports of hallucinations at this point. AWSS active withdrawal protocol with IV Ativan, and continue telemetry for cardiac monitoring. Had good symptom relief with nausea medications and Ativan in the ER. Received banana bag in ER, will continue IV thiamine and folate supplementation. We will also give 1 L normal saline as patient appears dehydrated on lab work and exam. Can have clear liquid diet if can tolerate from a nausea perspective. Treatment of electrolyte derangements as described below. Continue alcohol use counseling while admitted. Can provide resources for outpatient support if she desires. (2) Alcohol use disorder: Plan: History of, see #1 (3) History of seizure: Plan: On Keppra 250 mg p.o. twice daily in the outpatient setting, however has missed her medications for the last several days due to nausea and vomiting. Keppra load 1000 mg IV x1 given in ER, will resume her p.o. dosing as her nausea improves. Keppra level pending. Care of acute alcohol withdrawal as described above. (4) Tick bite: Plan: Patient reports a recent tick bite, was evaluated at urgent care and given doxycycline. Given that patient presented to the urgent care facility within 72 hours after tick bite, and received at least 2 doses of doxycycline each equaling 100 mg, feel that she is adequately prophylaxed for Lyme disease regardless and will stop the medication given her nausea and vomiting. Area of bite with minimal erythema around the bite site, but no target rash. Lyme IgG/IgM negative in the ER, not unexpected given that the tick bite just recently occurred. (5) Hypomagnesemia: Plan: Noted on lab work to have a magnesium of 1.1 in the setting of several days of nausea and vomiting, inability to tolerate p.o. intake. Received magnesium sulfate 2 g IV in ER, will continue x2 more grams with repeat levels in the morning. (6) Hypocalcemia: Plan: Ionized calcium level of 0.78, again in the setting of acute nausea and vomiting for the last several days. Received calcium gluconate 1000 mg in the ER, repeat BMP/iCal in the morning. (7) Electrocardiogram showing T wave abnormalities: Plan: EKG on arrival to the ER showed diffuse T wave abnormality, at that time patient was tachycardic into the 120s and feeling very anxious. Repeat EKG 1.5 hours later with some improvement in T wave inversions with im provement in her heart rate after receiving Ativan and IV fluids. Care of alcohol withdrawal and electrolyte derangements as described above. Daily EKG. Telemetry for cardiac monitoring. Plan Ambulate on demand, low risk of DVT Clear liquid diet for now, can advance as tolerated Telemetry for cardiac monitoring Patient is a full code History of Present Illness Chief Complaint: Nausea, vomiting, shaking Primary Care Provider: Megan Bales PA-C 41-year-old female past medical history significant for alcohol use disorder with last use about 3 days ago and history of admission for alcoholic vences llucinosis, PTSD, history of seizures on Keppra presented to the ER due to loss of appetite, vomiting, weakness over the last 24 to 48 hours. She notes that she was started on doxycycline about 4 days ago from an urgent care due to a tick bite. She denies any fevers, chest pain, shortness of breath, abdominal pain, diarrhea, constipation, dysuria. No recent seizures, but she does note that she has not been able to keep things down for couple of days and so she has missed her Keppra for at least the last 2 days. She admits that she recently lost her job and so has been drinking a bit more and then her usual, anywhere from 3-5 alcoholic beverages daily, these are cocktails that she makes herself. In the ER patient noted to be shaky and tremulous, with an elevated blood pressure and tachycardia with findings on EKG of T wave inversions in all leads. Noted to have low platelets of 86, otherwise CBC relatively normal, noted to have low CO2, with an elevated anion gap of 26. BSG elevated to 202, iCal 0.70 and magnesium of 1.1. TSH normal, Lyme/influenza/RSV/COVID-negative. Chest x- ray without evidence of acute cardiopulmonary findings. She had improvement in her symptoms with receiving normal saline and banana bag, Zofran, promethazine, Ativan. Hospitalist service was consulted for admission for suspected alcohol use disorder in active withdrawal, as well as electrolyte derangements. Allergies Allergy/AdvReac Type Severity Reaction Status Date / Time No Known Allergies Allergy Verified 05/29/20 21:03 Home Medications Medication Instructions Recorded Confirmed Type melatonin 5 mg capsule 5 mg PO PM PRN Sleep 05/11/20 09/30/21 History potassium chloride 20 mEq 20 meq PO QAM 05/29/20 09/30/21 History tablet,extended release levetiracetam 250 mg tablet 250 mg PO BID 09/30/21 09/30/21 History cyanocobalamin (vitamin B-12) 500 500 mcg PO QAM #30 tabs 10/03/21 Rx mcg tablet folic acid 1 mg tablet 1 mg PO QAM #30 tabs 10/03/21 Rx hydroxyzine HCl 25 mg tablet 25 mg PO Q6H PRN anxiety #20 tabs 10/03/21 Rx thiamine HCl (vitamin B1) 250 mg 250 mg PO DAILY #30 tabs 10/03/21 Rx tablet Past Med/Surg History Medical History (Updated 04/03/22 @ 14:00 by Renee Moore DO) Alcohol dependence Alcohol use disorder Anorexia Family history unobtainable Hypotension PTSD (post-traumatic stress disorder) Sepsis Transaminitis Surgical History No significant past surgical history Surgical history unknown Family History Other Family history non-contributory Social History (Updated 04/03/22 @ 13:46 by Renee Moore DO) Smoking Status: Never smoker Second Hand Exposure: No; Hx Alcohol Use: Yes Alcohol type: beer and hard liquor Hx Substance Use: No Preferred Language: [place] Communication Ability: Effective Hydraulic Controls Technician Required: No Beliefs That Will Affect Care: None marital status: Current Living Situation: Family Current Living Situation Comment: along with children current occupational status: employed Feels Safe at Home: Yes Assistive Devices: Glasses Review of Systems Review of Systems: All systems reviewed & are unremarkable except as noted in HPI & below Physical Exam Constitutional: well developed and + thin Eyes: PERRL, conjunctivae normal, anicteric sclerae ENMT: external ear and nose normal, oropharynx normal Neck: trachea midline, no thyromegaly Respiratory: normal respiratory effort, lungs clear to auscultation Cardiovascular: Heart regular rhythm, tachycardic, no murmurs, no peripheral edema Gastrointestinal (Abdomen): normal bowel sounds, soft, nontender, no hepatosplenomegaly Musculoskeletal: no cyanosis or clubbing, extremities motor strength 5/5 Skin: no rashes, warm and dry Neurologic: AAOx3, normal speech. PERRLA, EOMI, no nystagmus. Bilateral UE, LE, and face without sensory or motor deficits. Bilateral upper extremity tremor noted. Psychiatric: Orientation: alert and oriented x 3 Affect: + anxious affect Results & Data Results & Data ([facility]) Vital Signs (Past 12 Hours) Vital Signs Temp Pulse Resp BP Pulse Ox O2 Del Method 04/03/22 13:16 102 H 04/03/22 10:00 103 H 18 04/03/22 10:00 159/103 H 04/03/22 09:30 100 H 19 99 04/03/22 09:30 160/117 H 04/03/22 08:47 96 Room Air 04/03/22 09:14 106 H 04/03/22 08:37 36.4 C L 138 H 24 136/102 H 99 Room Air PG Care Time/CCT Total # of Minutes Spent Total Time Spent with Patient: Total time spent is greater than 50% in coordination of care (as documented) at patient's floor/unit and/or counseling patient: Coding Level of Care Code 93636 INT INP/OBS CARE 3/75MIN Diagnoses Alcohol withdrawal F10.939 Alcohol use disorder F10.90 History of seizure Z87.898 Tick bite W57.XXXA Hypomagnesemia E83.42 Hypocalcemia E83.51 Electrocardiogram showing T wave abnormalities R94.31
[2022-04-03] MEDS ORDERED: POLYETHYLENE (MIRALAX) 17 GM PACK PO PRN (16:32)
[2022-04-03] MEDS ORDERED: Ativan IV Alcohol Withdrawal--Active Protocol IV PRN (16:32)
[2022-04-03] MEDS ORDERED: SODIUM CHLORIDE 0.9% 1000ML 1,000 ML IV ONE (16:32)
[2022-04-03] MEDS ORDERED: LORazepam 2 MG/1 ML VIAL IV PRN ×3 (16:32)
[2022-04-03] MEDS ORDERED: ondansetron HCL 4 MG in DEXTROSE 5% 50 ML IV PRN (16:32)
[2022-04-03] MEDS ORDERED: ACETAMINOPHEN 325 MG TAB PO PRN (16:32)
[2022-04-03] MEDS ORDERED: ONDANSETRON INJ 2 MG/ML 2 ML VIAL IV PRN (16:37)
--- NOTE | 2022-04-03 17:09 | Electrocardiogram Report ---
Test Reason : Blood Pressure : / mmHG Vent. Rate : 099 BPM Atrial Rate : 099 BPM P-R Int : 126 ms QRS Dur : 074 ms QT Int : 364 ms P-R-T Axes : 067 051 019 degrees QTc Int : 467 ms Normal sinus rhythm Possible Left atrial enlargement Nonspecific T wave abnormality Abnormal ECG When compared with ECG of 03-APR-2022 08:49, T wave inversion less evident in Inferior leads Nonspecific T wave abnormality has replaced inverted T waves in Anterolateral leads Confirmed by Huey Cavazos ([id number]) on 04/03/2022 5:08:57 PM Referred By: REFERRED SELF Confirmed By:Blake Cavazos
[2022-04-03] MEDS: levETIRAcetam 250 MG TAB PO SCH (20:31)
[2022-04-03] MEDS ORDERED: MELATONIN 3 MG TAB PO PRN (21:19)
[2022-04-03 21:57] LABS: Appearance Urine Clear (Clear); Bacteria Urine Automated Negative (Negative); Bilirubin Urine Negative (Negative); Blood Urine Negative (Negative); Cast Urine Automated 0 /lpf (0-5); Color Urine Yellow; Glucose Urine UA Negative (Negative); Ketones Urine Negative (Negative); Leukocyte Esterase Urine Negative (Negative); Nitrite Urine Negative (Negative); Protein Urine 1+ (Negative); RBC Urine Automated 0-4 /hpf (0-4); Specific Gravity Urine 1.011 (1.000-1.030); Urobilinogen Urine Negative (Negative)
[2022-04-03 22:23] LABS: Amphetamines+Metham, Urine Neg (Neg); Barbiturates, Urine Neg (Neg); Benzodiazepine, Urine Neg (Neg); Cocaine, Urine Neg (Neg); MDMA (Ecstacy), Urine Neg (Neg); Methadone, Urine Neg (Neg); Opiate, Urine Neg (Neg); Phencyclidine, Urine Neg (Neg)
[2022-04-03] MEDS: PROPRANOLOL HCL 10 MG TAB PO SCH (23:08)
[2022-04-03] MEDS: LORazepam 0.5 MG TAB PO PRN (23:16)
[2022-04-04 07:07] LABS: Basophils # (auto) 0.01 K/uL (0-0.2); Basophils % (auto) 0.5 %; Eosinophils # (auto) 0.02 K/uL (0-0.50); Eosinophils % (auto) 0.9 %; Hematocrit (blood only) 35.1 % (37.0-47.0); Hemoglobin 12.3 g/dl (12.0-16.0); Immature Granulocytes # (auto) 0.01 K/uL (0.01-0.20); Immature Granulocytes % (auto) 0.5 %; Lymphocytes # (auto) 0.51 K/uL (1.2-3.4); Lymphocytes % (auto) 23.1 %; Mean Corpuscular Hemoglobin 32.7 pg (25.0-34.0); Mean Corpuscular Volume 93.4 fL (80.0-100.0); Mean Platelet Volume 10.1 fL (9.4-12.4); Monocytes # (auto) 0.15 K/uL (0.11-0.59); Monocytes % (auto) 6.8 %; Neutrophils # (auto) 1.51 K/uL (1.40-6.50); Neutrophils % (auto) 68.2 %; Platelet Count 55 K/uL (130-400); RDW Coefficient of Variation 13.2 % (11.5-14.5); RDW Standard Deviation 45.1 fL (36.4-46.3); Red Blood Count 3.76 M/uL (4.20-5.40); White Blood Count 2.21 K/ul (4.8-10.8)
[2022-04-04 07:22] LABS: BUN Creatinine Ratio 14.5 (10-20); Calcium 8.3 mg/dl (8.5-10.1); Est GFR (Non-African American) 117.3 ml/min; Magnesium 2.1 mg/dl (1.7-2.4); Potassium 3.1 mmol/L (3.5-5.1)
--- NOTE | 2022-04-04 07:22 | Hospitalist Progress Note ---
Date of Service April 04, 2022 Assessment & Plan (1) Alcohol withdrawal: Plan: History of alcohol use disorder with admission last year for alcohol withdrawal hallucinosis, also has a history of seizures in the setting of alcohol withdrawal. Last alcohol use about 3 days ago, with worsening of tremors and anxiety, but without reports of hallucinations at this point. AWSS active withdrawal protocol with IV Ativan, and continue telemetry for cardiac monitoring. Had good symptom relief with nausea medications and Ativan in the ER. Received banana bag in ER, will continue IV thiamine and folate supplementation. We will also give 1 L normal saline as patient appears dehydrated on lab work and exam. Can have clear liquid diet if can tolerate from a nausea perspective. Treatment of electrolyte derangements as described below. Continue alcohol use counseling while admitted. Can provide resources for outpatient support if she desires. (2) Alcohol use disorder: Plan: History of, see #1 (3) History of seizure: Plan: On Keppra 250 mg p.o. twice daily in the outpatient setting, however has missed her medications for the last several days due to nausea and vomiting. Keppra load 1000 mg IV x1 given in ER, will resume her p.o. dosing as her nausea improves. Keppra level pending. Care of acute alcohol withdrawal as described above. (4) Tick bite: Plan: Patient reports a recent tick bite, was evaluated at urgent care and given doxycycline. Given that patient presented to the urgent care facility within 72 hours after tick bite, and received at least 2 doses of doxycycline each equaling 100 mg, feel that she is adequately prophylaxed for Lyme disease regardless and will stop the medication given her nausea and vomiting. Area of bite with minimal erythema around the bite site, but no target rash. Lyme IgG/IgM negative in the ER, not unexpected given that the tick bite just recently occurred. (5) Hypomagnesemia: Plan: Noted on lab work to have a magnesium of 1.1 in the setting of several days of nausea and vomiting, inability to tolerate p.o. intake. Received magnesium sulfate 4g. Repeat mag wnl. (6) Hypocalcemia: Plan: Ionized calcium level of 0.78, again in the setting of acute nausea and vomiting for the last several days. Received calcium gluconate 1000 mg in the ER. Repeat iCal improved 1.01. (7) Electrocardiogram showing T wave abnormalities: Plan: EKG on arrival to the ER showed diffuse T wave abnormality, at that time patient was tachycardic into the 120s and feeling very anxious. Repeat EKG 1.5 hours later with some improvement in T wave inversions with improvement in her heart rate after receiving Ativan and IV fluids. Care of alcohol withdrawal and electrolyte derangements as described above. Daily EKG. Telemetry for cardiac monitoring. Plan DVT ppx: ambulation on demand, low risk for DVT FEN/GI: full liquid, advance as tolerated Code Status: full Dispo: med tele Admission and Anticipated Discharge Date Admission Date: April 03, 2022 Subjective Pt seen at bedside this morning. 41-year-old female past medical history significant for alcohol use disorder with last use about 3 days ago and history of admission for alcoholic hallucinosis, PTSD, history of seizures on Keppra presented to the ER due to loss of appetite, vomiting, weakness over the last 24 to 48 hours. She notes that she was started on doxycycline about 4 days ago from an urgent care due to a tick bite. She denies any fevers, chest pain, shortness of breath, abdominal pain, diarrhea, constipation, dysuria. No recent seizures, but she does note that she has not been able to keep things down for couple of days and so she has missed her Keppra for at least the last 2 days. She admits that she recently lost her job and so has been drinking a bit more and then her usual, anywhere from 3-5 alcoholic beverages daily, these are cocktails that she makes herself. In the ER patient noted to be shaky and tremulous, with an elevated blood pressure and tachycardia with findings on EKG of T wave inversions in all leads. Noted to have low platelets of 86, otherwise CBC relatively normal, noted to have low CO2, with an elevated anion gap of 26. BSG elevated to 202, iCal 0.70 and magnesium of 1.1. TSH normal, Lyme/influenza/RSV/COVID-negative. Chest x-ray without evidence of acute cardiopulmonary findings. She had improvement in her symptoms with receiving normal saline and banana bag, Zofran, promethazine, Ativan. Hospitalist service was consulted for admission for suspected alcohol use disorder in active withdrawal, as well as electrolyte derangements. Review of Systems Review of Systems: All systems reviewed & are unremarkable except as noted in HPI & below Physical Exam Constitutional: well developed and + thin Eyes: PERRL, conjunctivae normal, anicteric sclerae ENMT: external ear and nose normal, oropharynx normal Neck: trachea midline, no thyromegaly Respiratory: normal respiratory effort, lungs clear to auscultation Gastrointestinal (Abdomen): normal bowel sounds, soft, nontender, no hepatosplenomegaly Musculoskeletal: no cyanosis or clubbing, extremities motor strength 5/5 Skin: no rashes, warm and dry Psychiatric: Orientation: alert and oriented x 3 Affect: + anxious affect Results & Data Results & Data ([facility]) Vital Signs (Past 12 Hours) Vital Signs Temp Pulse Pulse Resp BP Pulse Ox O2 Del Method 04/04/22 03:00 36.8 C 83 18 151/98 H 99 Room Air 04/04/22 01:27 84 04/03/22 23:00 36.7 C 89 20 150/88 H 100 Room Air 04/03/22 19:36 36.9 C 88 20 142/95 H 99 Room Air
[2022-04-04 07:29] LABS: INR 0.9 (0.9-1.1)
[2022-04-04] MEDS ORDERED: POTASSIUM CHLORIDE CRTAB 20 MEQ TABCR PO STA (07:32)
[2022-04-04] MEDS: PROPRANOLOL HCL 10 MG TAB PO SCH (07:55)
[2022-04-04] MEDS: levETIRAcetam 250 MG TAB PO SCH (07:56)
[2022-04-04] MEDS: LORazepam 0.5 MG TAB PO PRN (07:58)
[2022-04-04] MEDS ORDERED: FOLIC ACID 1 MG in SYRINGE 9.8 ML IV SCH (09:00)
[2022-04-04] MEDS ORDERED: THIAMINE HCL 100 MG in SYRINGE 9 ML IV SCH (09:00)
--- NOTE | 2022-04-04 10:49 | Electrocardiogram Report ---
Test Reason : Blood Pressure : / mmHG Vent. Rate : 079 BPM Atrial Rate : 079 BPM P-R Int : 134 ms QRS Dur : 088 ms QT Int : 400 ms P-R-T Axes : 067 054 045 degrees QTc Int : 459 ms Normal sinus rhythm Abnormal ECG When compared with ECG of 03-APR-2022 09:50, T wave inversion no longer evident in Inferior leads Nonspecific T wave abnormality no longer evident in Anterolateral leads Confirmed by Huey Cavazos ([id number]) on 04/04/2022 10:49:22 AM Referred By: REFERRED SELF Confirmed By:Blake Cavazos
[2022-04-04] MEDS ORDERED: CYANOCOBALAMIN 1000 MCG/ML VIAL IM SCH (11:30)
[2022-04-04] MEDS ORDERED: POTASSIUM CHLORIDE CRTAB 20 MEQ TABCR PO ONE (12:00)
--- NOTE | 2022-04-04 12:10 | Discharge Summary ---
Date of Service April 04, 2022 Admission HPI Per Admitting Provider 41-year-old female past medical history significant for alcohol use disorder with last use about 3 days ago and history of admission for alcoholic hallucinosis, PTSD, history of seizures on Keppra presented to the ER due to loss of appetite, vomiting, weakness over the last 24 to 48 hours. She notes that she was started on doxycycline about 4 days ago from an urgent care due to a tick bite. She denies any fevers, chest pain, shortness of breath, abdominal pain, diarrhea, constipation, dysuria. No recent seizures, but she does note that she has not been able to keep things down for couple of days and so she has missed her Keppra for at least the last 2 days. She admits that she recently lost her job and so has been drinking a bit more and then her usual, anywhere from 3-5 alcoholic beverages daily, these are cocktails that she makes herself. In the ER patient noted to be shaky and tremulous, with an elevated blood pressure and tachycardia with findings on EKG of T wave inversions in all leads. Noted to have low platelets of 86, otherwise CBC relatively normal, noted to have low CO2, with an elevated anion gap of 26. BSG elevated to 202, iCal 0.70 and magnesium of 1.1. TSH normal, Lyme/influenza/RSV/COVID-negative. Chest x- ray without evidence of acute cardiopulmonary findings. She had improvement in her symptoms with receiving normal saline and banana bag, Zofran, promethazine, Ativan. Hospitalist service was consulted for admission for suspected alcohol use disorder in active withdrawal, as well as electrolyte derangements. Principal Diagnosis Alcohol Withdrawal Discharge Exam Constitutional well developed and + thin Eyes PERRL, conjunctivae normal, anicteric sclerae ENMT external ear and nose normal, oropharynx normal Neck trachea midline, no thyromegaly Respiratory normal respiratory effort, lungs clear to auscultation Gastrointestinal (Abdomen) normal bowel sounds, soft, nontender, no hepatosplenomegaly Musculoskeletal no cyanosis or clubbing, extremities motor strength 5/5 Skin no rashes, warm and dry Psychiatric Orientation: alert and oriented x 3 Affect: + anxious affect Discharge Data Allergies Allergy/AdvReac Type Severity Reaction Status Date / Time No Known Allergies Allergy Verified 04/03/22 16:33 Consultations 04/03/22 13:20 ED Decision to Admit Stat Ordered Studies Laboratory Results WBC 2.21 K/ul (4.8-10.8) L 04/04/22 06:39 RBC 3.76 M/uL (4.20-5.40) L 04/04/22 06:39 Hgb 12.3 g/dl (12.0-16.0) 04/04/22 06:39 POC Hgb 11.6 g/dl (12.0-16.0) L 04/03/22 11:40 Hct 35.1 % (37.0-47.0) L 04/04/22 06:39 POC Hct 34 % (37-47) L 04/03/22 11:40 MCV 93.4 fL (80.0-100.0) 04/04/22 06:39 MCH 32.7 pg (25.0-34.0) 04/04/22 06:39 MCHC 35.0 g/dL (32.0-36.0) 04/04/22 06:39 RDW Std Deviation 45.1 fL (36.4-46.3) 04/04/22 06:39 RDW Coeff of Cliff 13.2 % (11.5-14.5) 04/04/22 06:39 Plt Count 55 K/uL (130-400) L 04/04/22 06:39 MPV 10.1 fL (9.4-12.4) 04/04/22 06:39 Immature Gran % (Auto) 0.5 % 04/04/22 06:39 Neut % (Auto) 68.2 % 04/04/22 06:39 Lymph % (Auto) 23.1 % 04/04/22 06:39 Mills % (Auto) 6.8 % 04/04/22 06:39 Eos % (Auto) 0.9 % 04/04/22 06:39 Baso % (Auto) 0.5 % 04/04/22 06:39 Neut # (Auto) 1.51 K/uL (1.40-6.50) 04/04/22 06:39 Lymph # (Auto) 0.51 K/uL (1.2-3.4) L 04/04/22 06:39 Mills # (Auto) 0.15 K/uL (0.11-0.59) 04/04/22 06:39 Eos # (Auto) 0.02 K/uL (0-0.50) 04/04/22 06:39 Baso # (Auto) 0.01 K/uL (0-0.2) 04/04/22 06:39 Immature Gran # (Auto) 0.01 K/uL (0.01-0.20) 04/04/22 06:39 PT 10.0 Seconds (9.0-12.0) 04/04/22 06:39 INR 0.9 (0.9-1.1) 04/04/22 06:39 POC Sodium 137 mmol/L (135-144) 04/03/22 11:40 Sodium 135 mmol/L (136-145) L 04/04/22 06:39 POC Potassium 3.7 mmol/L (3.3-5.0) 04/03/22 11:40 Potassium 3.1 mmol/L (3.5-5.1) L 04/04/22 06:39 POC Chloride 104 mmol/L (101-112) 04/03/22 11:40 Chloride 100 mmol/L (98-107) 04/04/22 06:39 Carbon Dioxide 27 mmol/L (21-32) 04/04/22 06:39 POC Total CO2 19 mmol/L (24-31) L 04/03/22 11:40 Anion Gap 8 (3-11) 04/04/22 06:39 POC Anion Gap 19.0 mmol/L (16-25) 04/03/22 11:40 POC BUN 15 mg/dl (7-18) 04/03/22 11:40 BUN 8 mg/dl (6-23) 04/04/22 06:39 Creatinine 0.55 mg/dl (0.6-1.2) L 04/04/22 06:39 POC Creatinine 0.5 mg/dl (0.6-1.3) L 04/03/22 11:40 Est Cr Clr Drug Dosing 129.0 ml/min 04/04/22 06:39 Est GFR ( Amer) 136.0 ml/min 04/04/22 06:39 Est GFR (Non-Af Amer) 117.3 ml/min 04/04/22 06:39 BUN/Creatinine Ratio 14.5 (10-20) 04/04/22 06:39 Glucose 100 mg/dl (70-99(Fasting)) H 04/04/22 06:39 POC Glucose (other) 134 mg/dl (70-99) H 04/03/22 11:40 Lactate 1.2 mmol/L (0.4-2.0) 04/03/22 11:37 Calcium 8.3 mg/dl (8.5-10.1) L 04/04/22 06:39 POC Ioniz Calcium Raj 0.78 mmol/l (1.12-1.32) L 04/03/22 11:40 Ionized Calcium 1.01 mmol/L (1.12-1.32) L 04/04/22 06:39 Phosphorus 2.6 mg/dl (2.5-4.9) 04/03/22 09:19 Magnesium 2.1 mg/dl (1.7-2.4) 04/04/22 06:39 Total Bilirubin 0.9 mg/dl (0.2-1.0) 04/03/22 09:19 AST 38 U/L (13-39) 04/03/22 09:19 ALT 17 U/L (7-52) 04/03/22 09:19 Alkaline Phosphatase 55 U/L (34-104) 04/03/22 09:19 Total Creatine Kinase 78 U/L (26-192) 04/03/22 09:19 Troponin I High Sens 3.2 pg/ml (0-14) 04/03/22 09:19 Total Protein 8.3 gm/dl (6.0-8.3) 04/03/22 09:19 Albumin 4.9 gm/dl (3.4-5.0) 04/03/22 09:19 Globulin 3.4 gm/dl (2.5-4.0) 04/03/22 09:19 Albumin/Globulin Ratio 1.4 (0.9-2) 04/03/22 09:19 Vitamin B12 282 pg/ml (180-914) 04/04/22 07:37 Folate 12.50 ng/ml (>5.38) 04/04/22 07:37 TSH 0.922 uIu/ml (0.300-4.500) 04/03/22 09:19 Urine Color Yellow 04/03/22 21:30 Urine Appearance Clear (Clear) 04/03/22 21:30 Urine pH 7.0 (4.5-7.5) 04/03/22 21:30 Ur Specific [place] 1.011 (1.000-1.030) 04/03/22 21:30 Urine Protein 1+ (Negative) H 04/03/22 21:30 Urine Glucose (UA) Negative (Negative) 04/03/22 21:30 Urine Ketones Negative (Negative) 04/03/22 21:30 Urine Blood Negative (Negative) 04/03/22 21:30 Urine Nitrite Negative (Negative) 04/03/22 21:30 Urine Bilirubin Negative (Negative) 04/03/22 21:30 Urine Urobilinogen Negative (Negative) 04/03/22 21:30 Ur Leukocyte Esterase Negative (Negative) 04/03/22 21:30 Urine WBC (Auto) 1-5 /hpf (0-5) 04/03/22 21:30 Urine RBC (Auto) 0-4 /hpf (0-4) 04/03/22 21:30 U Hyaline Cast (Auto) 0 /lpf (0-5) 04/03/22 21:30 U Epithel Cells (Auto) 10-20 /lpf (0-5) H 04/03/22 21:30 Urine Bacteria (Auto) Negative (Negative) 04/03/22 21:30 Urine Opiates Screen Neg (Neg) 04/03/22 21:30 Ur Methadone, Qual Neg (Neg) 04/03/22 21:30 Urine Barbiturates Neg (Neg) 04/03/22 21:30 Ur Phencyclidine (PCP) Neg (Neg) 04/03/22 21:30 U Amphetamin/Meth Scrn Neg (Neg) 04/03/22 21:30 MDMA (Ecstasy) Screen Neg (Neg) 04/03/22 21:30 U Benzodiazepines Scrn Neg (Neg) 04/03/22 21:30 Ur Cocaine Metabolite Neg (Neg) 04/03/22 21:30 U Marijuana (THC) Screen Neg (Neg) 04/03/22 21:30 Ethyl Alcohol mg/dL < 10.0 mg/dl (<10.0) 04/03/22 09:19 Lyme Disease IgG Ab Negative (Negative) 04/03/22 09:19 Lyme Disease IgM Ab Negative (Negative) 04/03/22 09:19 SARS-CoV-2 (PCR) NEGATIVE (Negative) 04/03/22 10:02 Influenza Type A (PCR) Negative (Neg) 04/03/22 10:02 Influenza Type B (PCR) Negative (Neg) 04/03/22 10:02 RSV (RT-PCR) Negative (Neg) 04/03/22 10:02 Impressions Chest X-Ray 04/03/22 08:47 XR chest 1V portable CLINICAL HISTORY: weakness COMPARISON STUDY: Chest radiograph October 03, 2021. FINDINGS: Right ninth rib fracture similar in appearance to radiographs of October 03, 2021. Lung volumes are normal. Lungs are clear. There is no pneumothorax or pleural effusion. Cardiac size is normal. Mediastinal contours are normal. There is no evidence for pulmonary edema. IMPRESSION: No acute cardiopulmonary findings. ACT 112: Negative or not required by law. Electronically signed by: Kartik Chaudhry M.D. 04/03/2022 9:56 AM Hospital Course (1) Alcohol withdrawal: 41-year-old female past medical history significant for alcohol use disorder with last use about 3 days ago and history of admission for alcoholic hallucinosis, PTSD, history of seizures on Keppra presented to the ER due to loss of appetite, vomiting, weakness over the last 24 to 48 hours. #Alcohol withdrawal, resolved #Alcohol use disorder #Tremors/anxiety, Nausea, Vomiting, resolved -History of alcohol use disorder with admission last year for alcohol withdrawal hallucinosis, also has a history of seizures in the setting of alcohol wi thdrawal. H/o underlying anxiety. Also recently on doxycycline for ppx tick bite which could have added to GI symptoms. -Last alcohol use 04/01/22, with worsening of tremors and anxiety, but without re ports of hallucinations. -AWSS active withdrawal protocol with IV Ativan. Had good symptom relief with nausea medications and Ativan. -Received banana bag in ER, along with IVF, IV thiamine and folate supplementation. -Continue alcohol use counseling while admitted.Provided resources for outpatient support if she desires. -Mild pancytopenia likely due to alcohol use disorder, would recommend repeat cbc in outpatient setting #B12 deficiency -B12 level 280s -has been supplementing 500mcg a few days a week since september 2021 -some concern for pernicious anemia since level not improving. Gave single dose of IM B12 prior to discharge. -recommend pernicious anemia workup in outpatient setting. Consider more IM injections in the meantime. #History of seizure -On Keppra 250 mg po bid, in the outpatient setting, however has missed her medications for the last several days due to nausea and vomiting. -Keppra load 1000 mg IV x1 given in ER. Now resumed on home dosing. Keppra level pending. #Tick bite -Patient reported a recent tick bite, was evaluated at urgent care and given doxycycline. Given ppx dosing. -Area of bite with minimal erythema around the bite site, but no target rash. -Lyme IgG/IgM negative in the ER, not unexpected given that the tick bite just recently occurred. #Hypomagnesemia, resolved Noted on lab work to have a magnesium of 1.1 in the setting of several days of nausea and vomiting, inability to tolerate p.o. intake. Received magnesium sulfate 4g. Repeat mag wnl. #Hypocalcemia, resolved Ionized calcium level of 0.78, again in the setting of acute nausea and vomiting for the last several days. Received calcium gluconate 1000 mg in the ER. Repeat iCal improved 1.01. (2) Alcohol use disorder: (3) History of seizure: (4) Tick bite: (5) Hypomagnesemia: (6) Electrocardiogram showing T wave abnormalities: Total Time Total Time Spent Total Time Spent (In Minutes): 30 Discharge Plan Discharge Items Patient Disposition: Home - Self-Care Reason For Visit: ALCOHOL USE DIS IN WITHDRAWAL, ELECTROLYTE DERANG Discharge Diagnosis: Alcohol Withdrawal Condition on Discharge: Good Activity: Per Instructions section Non-emergency contact: Primary Care Provider Call non-emergency contact if: you have any medication questions and your symptoms worsen Follow-up/Referrals: Megan Bales PA-C [Primary Care Provider] - (PLEASE CALL YOUR PRIMARY CARE PROVIDER TO SCHEDULE A DISCHARGE FOLLOW-UP APPOINTMENT WITHIN 7-10 DAYS.) Diet: Regular Addtl Attending Provider Instructions: You were admitted to the hospital for suspected alcohol withdrawal symptoms which improved with IV hydration and spot doses of lorazepam. Electrolytes were deranged likely due to days of nausea and vomiting and were replenished in the hospital. I also suspect a component of your symptoms was due to underlying anxi ety and the doxycycline which can cause GI upset. Going forward it will be important to follow up with your family doc to discuss your anxiety as well as alcohol use. We have provided you with outpatient sources to aid you in alcohol cessation which hopefully you will find helpful. Our labs also indicated you remain low in vitamin B12 despite your home supplementation. It appears your diet does have a decent amount of B12 in it as well. With that being said, it will be important to discuss with your PCP about the possibility of malabsorption issues such as pernicious anemia which could be causing this decrease in B12 and inability to absorb the vitamin orally. Prior to discharge, we did give you a intramuscular injection of B12 which hopefully should help raise levels, however, you may need more of these injections in the outpatient setting. It is possible this deficiency could be aiding to your anxiety and tremors. For you h/o seizures, since you missed a few Keppra doses over the past few days, we loaded you with IV keppra and now you are back on your home regimen. Please f/u with your PCP for the next 1-2 weeks. Pending Studies at Discharge: No Stand-Alone Forms: My [facility], Smoking Cessation Medications and DC Order Prescriptions: Continued melatonin 5 mg capsule 5 mg PO PM PRN (Reason: Sleep) potassium chloride 20 mEq tablet extended release 20 meq PO QAM Rx Instructions: PER PT "NOT REGULARLY". levetiracetam 250 mg tablet 250 mg PO BID cyanocobalamin (vitamin B-12) 500 mcg Tablet 500 mcg PO QAM Qty: 30 0RF folic acid 1 mg Tablet 1 mg PO QAM Qty: 30 0RF thiamine HCl (vitamin B1) 250 mg tablet 250 mg PO DAILY Qty: 30 0RF hydroxyzine HCl 25 mg tablet 25 mg PO Q6H PRN (Reason: anxiety) Qty: 20 0RF valacyclovir 500 mg tablet 500 mg PO DIRECTED PRN (Reason: COLD SORES PER PT.) acetaminophen [Tylenol Extra Strength] 500 mg Tablet 1,000 mg PO DIRECTED PRN (Reason: PAIN/FEVER) ondansetron 8 mg Tablet,Disintegrating 8 mg PO TID PRN (Reason: NAUSEA/VOMITING) propranolol 10 mg tablet 10 mg PO BID amitriptyline 25 mg tablet 25 mg PO HS lorazepam 0.5 mg tablet 0.5 mg PO DAILY PRN (Reason: Anxiety/PANIC ATTACK) ferrous sulfate [iron] 325 mg (65 mg iron) Tablet 325 mg PO DAILY Rx Instructions: PER PT "JUST TOOK ONE A FEW MINUTES AGO". azelastine 137 mcg (0.1 %) aerosol,spray 2 spray INTRANASAL DAILY PRN (Reason: Congestion) Rx Instructions: PER PT "NEVER USED". cholecalciferol (vitamin D3) [Vitamin D3] 25 mcg (1,000 unit) Capsule 25 mcg PO DAILY Discharge Orders: Discharge Order (Routine); Ordered 04/04/22 Ordered By: Ubaldo Duncan Admission Data Admit Date/Time: 04/03/22 13:42 Attending Provider: [place] Pradhan Admit Provider: Renee Moore Primary Care Provider: Megan Bales Other Providers: Renee Moore Other Interventions: Discharge Summary Assessment (RN) Last Done: 04/04/22 12:56 Supervising Physician Co-Signing Physician Notes Attending attestation Pt seen and examined in concert with Dr. Duncan. In agreement with the documented findings as noted in the resident documentation with any exceptions or additions as noted here. Ongoing tremulousness without subjective complaint of withdrawal related symptoms at present. Significant anxiety reported, originating first from work stress but overall. Re; etOH intake, reports a 750ml bottle of vodka q4 days and a bottle of red wine per week. On examination, S1/S2 nl RRR no MCG. CTAB. Abd NT/ND BS+ve Alcohol use disorder with withdrawal - case management to connect with resources, s/p electrolyte repletion and feeling at baseline. Seizure disorder - s/p keppra load and will continue 250mg BID dosing Low B12 - may be contributing to tremor. IM supplementation today and consider ongoing in outpatient, partial adherence to 500mg daily supplement 3/wk Else see resident documentation as noted. Total attending physician time spent with this patient's care on the day of discharge: 40 minutes. Resident Activity Tracking Resident Involvement: Resident Care Provided Care Provided: Adult Hospital Medicine
[2022-04-04] MEDS ORDERED: AMITRIPTYLINE HCL 25 MG TAB PO SCH (21:00)
== END 2022-04-04 13:36 | disposition home or self-care (01) | DRG 897 ==
LOC: ED 08:36 → SUATTDRO 13:42 → EDINP 13:42 → 2N 16:34

== ENCOUNTER 2023-07-22 03:58 | Inpatient (IN) ==
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
[2023-07-22 04:55] LABS: Pregnancy Test, Serum Negative (Negative)
[2023-07-22 05:05] LABS: Albumin Level 4.7 gm/dl (3.4-5.0); Anion Gap 16 (3-11); Bilirubin,Total 1.6 mg/dl (0.2-1.0); Calcium 10.5 mg/dl (8.6-10.3); Carbon Dioxide 21 mmol/L (21-32); Chloride 87 mmol/L (98-107); Magnesium 1.6 mg/dl (1.7-2.4); Potassium 3.5 mmol/L (3.5-5.1); Sodium 124 mmol/L (136-145)
[2023-07-22 05:11] LABS: BUN Creatinine Ratio 23.3 (10-20); Blood Urea Nitrogen 20 mg/dl (6-23); Est GFR (African American) 97.3 ml/min; Est GFR (Non-African American) 83.9 ml/min; Glucose 147 mg/dl (70-99(Fasting))
[2023-07-22] MEDS: MULTI-VITAMIN INFUSION 10 ML, THIAMINE HCL 100 MG, FOLIC ACID 1 MG in SODIUM CHLORIDE 0... IV ONE (05:11)
[2023-07-22 05:41] LABS: Alanine Aminotransferase 57 U/L (7-52); Albumin Globulin Ratio 1.4 (0.9-2); Alkaline Phosphatase 63 U/L (34-104); Aspartate Aminotransferase 57 U/L (13-39); Globulin 3.4 gm/dl (2.5-4.0); Phosphorus < 1.0 mg/dl (2.5-4.9); Total Protein 8.1 gm/dl (6.0-8.3)
[2023-07-22 05:49] LABS: Basophils # (auto) 0.03 K/uL (0.00-0.20); Basophils % (auto) 0.2 %; Hematocrit (blood only) 35.6 % (37.0-47.0); Hemoglobin 13.1 g/dl (12.0-16.0); Immature Granulocytes # (auto) 0.13 K/uL (0.01-0.20); Immature Granulocytes % (auto) 0.9 %; Lymphocytes # (auto) 0.46 K/uL (1.20-3.40); Lymphocytes % (auto) 3.3 %; Mean Corpuscular Hemoglobin 31.6 pg (25.0-34.0); Mean Corpuscular Hgb Conc 36.8 g/dL (32.0-36.0); Mean Platelet Volume 12.2 fL (9.4-12.4); Monocytes % (auto) 6.5 %; Neutrophils # (auto) 12.27 K/uL (1.40-6.50); Neutrophils % (auto) 89.1 %; Nucleated RBC # (auto) 0.06 K/uL (0.00-0.12); Nucleated RBC % (auto) 0.4 %; Platelet Count 95 K/uL (130-400); RDW Coefficient of Variation 12.5 % (11.5-14.5); RDW Standard Deviation 39.5 fL (36.4-46.3); Red Blood Count 4.14 M/uL (4.20-5.40); White Blood Count 13.79 K/ul (4.8-10.8)
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
[2023-07-22] MEDS ORDERED: LACTATED RINGER'S 1,000 ML IV SCH (06:30)
[2023-07-22] MEDS: LORazepam 1 MG in SYRINGE 0.5 ML IV STA (06:45)
[2023-07-22] MEDS: PANTOprazole 40 MG in SYRINGE 0 ML IV ONE (06:45)
[2023-07-22 07:31] LABS: Appearance Urine Clear (Clear); Bacteria Urine Automated None Seen (None Seen); Bilirubin Urine Negative (Negative); Blood Urine 2+ (Negative); Color Urine Dark Yellow; Glucose Urine UA Negative (Negative); Ketones Urine 1+ (Negative); Leukocyte Esterase Urine Negative (Negative); Nitrite Urine Negative (Negative); Protein Urine 3+ (Negative); Specific Gravity Urine 1.032 (1.000-1.030); Urobilinogen Urine Negative (Negative); pH Urine 6.5 (4.5-7.5)
[2023-07-22 07:32] LABS: Amphetamines+Metham, Urine Neg (Neg); Barbiturates, Urine Neg (Neg); Benzodiazepine, Urine Neg (Neg); Cocaine, Urine Neg (Neg); Fentanyl, Urine Neg (Neg); MDMA (Ecstacy), Urine Neg (Neg); Marijuana, Urine Neg (Neg); Methadone, Urine Neg (Neg); Opiate, Urine Neg (Neg); Phencyclidine, Urine Neg (Neg)
[2023-07-22] MEDS ORDERED: POLYETHYLENE (MIRALAX) 17 GM PACK PO PRN (07:38)
[2023-07-22] MEDS: LORazepam 1 MG TAB PO PRN (07:38)
[2023-07-22] MEDS: OPTIRAY 320 100ml IV ONE (07:38)
[2023-07-22] MEDS: SODIUM PHOSPHATE IV ONE (07:47)
[2023-07-22] MEDS: SODIUM CHLORIDE 0.9% IV ONE (07:47)
--- NOTE | 2023-07-22 07:53 | CT Scan Report ---
CT SCAN OF THE BRAIN COMBO CLINICAL HISTORY: Encephalopathy. Intoxication. COMPARISON STUDY: CT of the brain dated 09/30/2021. TECHNIQUE: Axial CT scan of the brain is performed from the vertex to the skull base before and follo wing administration of 94 cc of Optiray 320. IV contrast was administered without complication. A dos e lowering technique was utilized adhering to the principles of ALARA. CT DOSE: 1094.1 mGy.cm FINDINGS: Brain parenchyma: The brain parenchyma is normal in appearance. There is no hemorrhage, mass effect, or evidence of acute territorial ischemia by CT criteria. No enhancing lesion is suggested on the pos tcontrast images. [place]bol[place]o-white matter differentiation is preserved. No extra-axial fluid collection is seen. Ventricles, sulci, cisterns: Normal in configuration. Intracranial vasculature: The visualized intracranial vasculature at the skull base is normal in appe arance. Calvarium: Unremarkable. Sinuses and mastoids: There is trace mucosal thickening in the sphenoid sinuses, with trace fluid see n on the left. The remaining visualized paranasal sinuses are clear. The mastoid air cells are well p neumatized. Orbits: The bony orbits are grossly intact. IMPRESSION: No acute intracranial abnormality. ACT 112: Negative or not required by law. Electronically signed by: Ulisses Santana M.D. 07/22/2023 7:50 AM
[2023-07-22] MEDS ORDERED: LORazepam 3 MG in SYRINGE 1.5 ML IV PRN (08:54)
[2023-07-22] MEDS ORDERED: Ativan IV Alcohol Withdrawal--Active Protocol IV PRN (08:54)
[2023-07-22] MEDS ORDERED: LORazepam 2 MG in SYRINGE 1 ML IV PRN (08:54)
[2023-07-22] MEDS ORDERED: THIAMINE HCL 500 MG in SODIUM CHLORIDE 0.9% 50 ML IV SCH (09:00)
[2023-07-22] MEDS: SODIUM CHLORIDE 0.9% 1,000 ML IV SCH (09:01)
[2023-07-22] MEDS: FOLIC ACID 1 MG in SYRINGE 9.8 ML IV SCH (09:23)
[2023-07-22] MEDS: MAGNESIUM SULFATE / D5W 1 GM/100 ML BAG IV SCH (09:23)
[2023-07-22] MEDS: LORazepam 1 MG/1 ML SYR ED Inj Use IV STA (09:23)
[2023-07-22] MEDS: THIAMINE HCL 500 MG in SODIUM CHLORIDE 0.9% 50 ML IV SCH (09:24)
[2023-07-22 09:31] LABS: BUN Creatinine Ratio 26.9 (10-20); Calcium 9.5 mg/dl (8.6-10.3); Est GFR (African American) 126.5 ml/min; Est GFR (Non-African American) 109.2 ml/min; Potassium 3.4 mmol/L (3.5-5.1)
[2023-07-22 09:35] LABS: Albumin Globulin Ratio 1.3 (0.9-2); Bilirubin,Total 1.4 mg/dl (0.2-1.0); Magnesium 1.6 mg/dl (1.7-2.4); Phosphorus 1.3 mg/dl (2.5-4.9)
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
[2023-07-22 12:35] LABS: Calcium 8.1 mg/dl (8.6-10.3); Creatinine Clr Calc Pharmacy 86.9 ml/min; Est GFR (African American) 128.5 ml/min; Est GFR (Non-African American) 110.8 ml/min; Potassium 3.4 mmol/L (3.5-5.1)
[2023-07-22] MEDS: LORazepam 1 MG/1 ML SYR ED Inj Use ONE (12:42)
[2023-07-22] MEDS: LORazepam 1 MG in SYRINGE 0.5 ML IV PRN (12:48)
[2023-07-22 13:57] LABS: Phosphorus 2.3 mg/dl (2.5-4.9)
[2023-07-22 16:00] LABS: BUN Creatinine Ratio 21.9 (10-20); Calcium 8.4 mg/dl (8.6-10.3); Creatinine Clr Calc Pharmacy 86.9 ml/min; Est GFR (African American) 128.5 ml/min; Est GFR (Non-African American) 110.8 ml/min; Potassium 3.3 mmol/L (3.5-5.1)
[2023-07-22] MEDS: DEXTROSE 5% 1,000 ML IV SCH (17:21)
[2023-07-22] MEDS: ALUMINUM/MAGNESIUM SUSP 30 ML UDC PO PRN (17:43)
[2023-07-22 19:42] LABS: Anion Gap 10 (3-11); Blood Urea Nitrogen 15 mg/dl (6-23); Calcium 8.4 mg/dl (8.6-10.3); Carbon Dioxide 22 mmol/L (21-32); Chloride 96 mmol/L (98-107); Creatinine Clr Calc Pharmacy 92.7 ml/min; Est GFR (African American) 131.2 ml/min; Est GFR (Non-African American) 113.2 ml/min; Glucose 129 mg/dl (70-99(Fasting)); Potassium 2.8 mmol/L (3.5-5.1); Sodium 128 mmol/L (136-145)
[2023-07-22 19:51] LABS: Alanine Aminotransferase 36 U/L (7-52); Albumin Globulin Ratio 1.5 (0.9-2); Albumin Level 3.8 gm/dl (3.4-5.0); Alkaline Phosphatase 53 U/L (34-104); Aspartate Aminotransferase 34 U/L (13-39); Bilirubin,Total 1.1 mg/dl (0.2-1.0); Globulin 2.5 gm/dl (2.5-4.0); Total Protein 6.3 gm/dl (6.0-8.3)
[2023-07-22 20:11] LABS: Phosphorus < 1.0 mg/dl (2.5-4.9)
[2023-07-22] MEDS ORDERED: POTASSIUM PHOS 3 MMOL/1 ML INFUSION IV STA (20:14)
[2023-07-22] MEDS: PANTOprazole 40 MG in SYRINGE 0 ML IV SCH (21:00)
[2023-07-22] MEDS: POTASSIUM PHOSPHATE 30 MMOL in SODIUM CHLORIDE 0.9% 500 ML IV ONE (21:00)
[2023-07-22] MEDS: POTASSIUM CHLORIDE / WTR 10 MEQ/100 ML PLCT IV SCH (21:06)
[2023-07-22] MEDS: ACETAMINOPHEN 500 MG TAB PO PRN (23:20)
[2023-07-22 23:39] LABS: Calcium 8.4 mg/dl (8.6-10.3); Potassium 3.6 mmol/L (3.5-5.1)
[2023-07-22 23:40] LABS: Creatinine Clr Calc Pharmacy 94.3 ml/min; Est GFR (African American) 131.9 ml/min; Est GFR (Non-African American) 113.8 ml/min
[2023-07-23 02:55] LABS: Calcium 8.2 mg/dl (8.6-10.3); Creatinine Clr Calc Pharmacy 95.9 ml/min; Est GFR (African American) 132.7 ml/min; Est GFR (Non-African American) 114.5 ml/min; Potassium 3.1 mmol/L (3.5-5.1)
--- NOTE | 2023-07-23 03:31 | Billing Data ---
Date of Service July 22, 2023 Coding Level of Care Code 26893 INT INP/OBS CARE
[2023-07-23] MEDS: POTASSIUM CHLORIDE / WTR 10 MEQ/100 ML PLCT IV SCH ×2 (03:57→10:15)
[2023-07-23 07:33] LABS: Albumin Globulin Ratio 1.3 (0.9-2); Albumin Level 3.4 gm/dl (3.4-5.0); Bilirubin,Total 0.7 mg/dl (0.2-1.0); Calcium 8.3 mg/dl (8.6-10.3); Creatinine Clr Calc Pharmacy 106.1 ml/min; Est GFR (African American) 136.7 ml/min; Est GFR (Non-African American) 117.9 ml/min; Globulin 2.6 gm/dl (2.5-4.0); Magnesium 1.7 mg/dl (1.7-2.4); Phosphorus 2.1 mg/dl (2.5-4.9); Potassium 3.3 mmol/L (3.5-5.1)
[2023-07-23 07:47] LABS: Hematocrit (blood only) 26.8 % (37.0-47.0); Hemoglobin 9.7 g/dl (12.0-16.0); Mean Corpuscular Hemoglobin 31.7 pg (25.0-34.0); Mean Corpuscular Hgb Conc 36.2 g/dL (32.0-36.0); Mean Corpuscular Volume 87.6 fL (80.0-100.0); Platelet Count 75 K/uL (130-400); RDW Coefficient of Variation 12.8 % (11.5-14.5); RDW Standard Deviation 41.1 fL (36.4-46.3); Red Blood Count 3.06 M/uL (4.20-5.40); White Blood Count 6.91 K/ul (4.8-10.8)
[2023-07-23 07:48] LABS: Basophils # (auto) 0.02 K/uL (0.00-0.20); Basophils % (auto) 0.3 %; Eosinophils # (auto) 0.01 K/uL (0.00-0.50); Eosinophils % (auto) 0.1 %; Immature Granulocytes # (auto) 0.07 K/uL (0.01-0.20); Lymphocytes # (auto) 0.59 K/uL (1.20-3.40); Lymphocytes % (auto) 8.5 %; Monocytes # (auto) 0.56 K/uL (0.11-0.59); Monocytes % (auto) 8.1 %; Neutrophils # (auto) 5.66 K/uL (1.40-6.50)
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
[2023-07-23] MEDS ORDERED: POTASSIUM PHOS 3 MMOL/1 ML INFUSION IV STA (09:08)
[2023-07-23] MEDS: PROPRANOLOL HCL 10 MG TAB PO SCH (10:13)
[2023-07-23] MEDS: hydrOXYzine HCl 25 MG TAB PO PRN (10:13)
[2023-07-23 10:32] LABS: BUN Creatinine Ratio 17.3 (10-20); Calcium 8.5 mg/dl (8.6-10.3); Creatinine Clr Calc Pharmacy 108.1 ml/min; Est GFR (African American) 137.5 ml/min; Est GFR (Non-African American) 118.7 ml/min; Potassium 2.8 mmol/L (3.5-5.1)
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
[2023-07-23] MEDS: LORazepam 0.5 MG TAB PO PRN (12:32)
[2023-07-23 15:16] LABS: Calcium 8.6 mg/dl (8.6-10.3); Creatinine Clr Calc Pharmacy 112.4 ml/min; Est GFR (African American) 139.3 ml/min; Est GFR (Non-African American) 120.2 ml/min; Potassium 3.3 mmol/L (3.5-5.1)
[2023-07-23] MEDS: POTASSIUM PHOSPHATE 21 MMOL in SODIUM CHLORIDE 0.9% 500 ML IV ONE (16:08)
[2023-07-23] MEDS: POTASSIUM CHLORIDE CRTAB 20 MEQ TABCR PO ONE (18:49)
[2023-07-23] MEDS ORDERED: AMITRIPTYLINE HCL 25 MG TAB PO SCH (21:00)
[2023-07-23] MEDS: traZODone HCL 50 MG TAB PO PRN (21:04)
[2023-07-24 07:11] LABS: Basophils # (auto) 0.02 K/uL (0.00-0.20); Basophils % (auto) 0.4 %; Eosinophils # (auto) 0.04 K/uL (0.00-0.50); Eosinophils % (auto) 0.8 %; Hematocrit (blood only) 25.8 % (37.0-47.0); Hemoglobin 9.4 g/dl (12.0-16.0); Immature Granulocytes # (auto) 0.04 K/uL (0.01-0.20); Immature Granulocytes % (auto) 0.8 %; Lymphocytes % (auto) 14.1 %; Mean Corpuscular Hemoglobin 31.9 pg (25.0-34.0); Mean Corpuscular Hgb Conc 36.4 g/dL (32.0-36.0); Mean Corpuscular Volume 87.5 fL (80.0-100.0); Mean Platelet Volume 10.8 fL (9.4-12.4); Monocytes # (auto) 0.53 K/uL (0.11-0.59); Monocytes % (auto) 10.6 %; Neutrophils # (auto) 3.65 K/uL (1.40-6.50); Neutrophils % (auto) 73.3 %; Platelet Count 129 K/uL (130-400); RDW Coefficient of Variation 12.8 % (11.5-14.5); RDW Standard Deviation 41.1 fL (36.4-46.3); Red Blood Count 2.95 M/uL (4.20-5.40); White Blood Count 4.98 K/ul (4.8-10.8)
[2023-07-24 07:17] LABS: Albumin Globulin Ratio 1.3 (0.9-2); Albumin Level 3.3 gm/dl (3.4-5.0); BUN Creatinine Ratio 9.3 (10-20); Bilirubin,Total 0.4 mg/dl (0.2-1.0); Calcium 8.7 mg/dl (8.6-10.3); Creatinine Clr Calc Pharmacy 107.4 ml/min; Est GFR (African American) 135.8 ml/min; Est GFR (Non-African American) 117.2 ml/min; Globulin 2.6 gm/dl (2.5-4.0); Magnesium 1.4 mg/dl (1.7-2.4); Phosphorus 1.9 mg/dl (2.5-4.9); Potassium 3.2 mmol/L (3.5-5.1); Total Protein 5.9 gm/dl (6.0-8.3)
[2023-07-24] MEDS ORDERED: POTASSIUM PHOS 3 MMOL/1 ML INFUSION IV STA (07:22)
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
[2023-07-24] MEDS: POTASSIUM CHLORIDE CRTAB 20 MEQ TABCR PO ONE (09:32)
[2023-07-24] MEDS: POTASSIUM PHOSPHATE 21 MMOL in SODIUM CHLORIDE 0.9% 500 ML IV ONE (09:32)
[2023-07-24] MEDS: MAGNESIUM SULFATE / D5W 1 GM/100 ML BAG IV SCH (09:32)
[2023-07-24] MEDS: IBUPROFEN 600 MG TAB PO PRN (09:38)
[2023-07-24 15:12] LABS: BUN Creatinine Ratio 8.2 (10-20); Calcium 8.8 mg/dl (8.6-10.3); Est GFR (African American) 130.5 ml/min; Est GFR (Non-African American) 112.6 ml/min; Magnesium 2.3 mg/dl (1.7-2.4); Phosphorus 3.4 mg/dl (2.5-4.9); Potassium 3.7 mmol/L (3.5-5.1)
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
== END 2023-07-24 18:40 | disposition home or self-care (01) | DRG 641 ==
LOC: SUATTDRO → ED 03:58 → SUATTDRO 06:20 → EDINP 06:20 → 2S 07:39